=== PATIENT | male | born 1960 | race Caucasian/White ===

== ENCOUNTER 2019-08-17 16:09 | Emergency (ER) | payer MEDICARE, MEDICAID, SELFPAY ==
--- NOTE | 2019-08-17 16:17 | ED_ITS ---
Entered by Jocelynn Shah, acting as scribe for Gonzalo Small MD HPI - Arrhythmia/Palpitations General: Chief Complaint: Arrhythmia/Palpitations Stated Complaint: palpitations, shoulder pain Time Seen by Provider: 08/17/19 16:15 Source: patient, EMS and RN notes reviewed Mode of arrival: EMS Limitations: no limitations History of Present Illness: HPI narrative: 59 yo male presents to ED with complaints of his heart skipping beats. He said his heart has been skipping beats for a couple of days and he began having chest pain this morning (the patient has a history of A-Fib). He said he has had pain in both sides of his neck recently and Dr Way's office was to have set up a test for him but he has not heard from them. He said he is now having pain through to his back. He had aspirin (4-325) prior to ambulance arrival and obtained relief. He has left message with Dr Way's nurse 3-4 days ago has not had a call back. complaint: skipped beats and atrial fibrillation Onset (ago): day(s) (2) Duration: constant Severity: moderate Context: awoke with symptoms Arrhythmia history: atrial fibrillation and other (CAD) Associated symptoms: Reports other (chest pain); Deny nausea or vomiting Treatments prior to arrival: other (aspirin) Review of Systems Const: Denies: fever, chills, body aches or change in appetite Eyes: Denies: blurry vision or eye discomfort ENMT: Denies: throat pain or dental pain Card: Denies: chest pain Resp: Denies: shortness of breath GI: Denies: abdominal pain, nausea, vomiting or diarrhea : Denies: painful urination Musc: Denies: neck pain or back pain Skin/Breast: Denies: rash Neuro: Denies: headache Psych: Denies: depression Álvaro/Lymph: Denies: easy bruising All/Imm: Denies: hives PFS ED PFSH: Medical History (Updated 08/17/19 @ 18:52 by Gonzalo Small MD) Atrial fibrillation CAD (coronary artery disease) Hyperlipidemia Surgical History (Updated 07/14/19 @ 17:[address] MD) S/P CABG x 2 Social History (Updated 07/11/19 @ 13:30 by EFRAIN Bass Smoking and tobacco status: never smoked Physical Exam Const: COMMON NORMALS: no apparent distress, oriented x3 and healthy appearing HENMT: COMMON NORMALS: normocephalic and head/scalp atraumatic HEAD & SCALP: normocephalic and atraumatic Eye: COMMON NORMALS: PERRL and EOMs intact bilaterally PUPIL: Yes PERRL Neck/C-Spine: COMMON NORMALS: full ROM and supple Chest: COMMONS NORMALS: inspection of chest normal and palpation of chest normal Resp: COMMON NORMALS: normal respiratory effort, no retractions, no use of accessory muscles and clear to auscultation bilaterally AUSCULTATION: clear to auscultation bilaterally Cardio: COMMON NORMALS: regular rate, regular rhythm and no murmurs RATE: regular rate RHYTHM: regular rhythm GI: COMMON NORMALS: normal to inspection, nondistended, normoactive bowel sounds, soft to palpation, non-tender and no masses PALPATION: Yes soft Extremity: COMMON NORMALS: normal to inspection and full ROM Neuro: COMMON NORMALS: oriented x3, moves all extremities and no focal motor deficits Psych: COMMON NORMALS: mental status grossly normal, thought process normal and cooperative THOUGHT PROCESS: normal thought process Skin: COMMON NORMALS: no rashes or lesions noted and no wounds GENERAL SKIN EXAM: no rashes or lesions noted Course Vital Signs: Vital signs: Vital Signs Temperature 98.4 F 08/17/19 16:26 Pulse Rate 53 L 08/17/19 18:01 Respiratory Rate 13 08/17/19 18:01 Blood Pressure 148/63 08/17/19 16:26 Pulse Oximetry 100 08/17/19 18:01 MDM - Arrhythmia/Palpitations MDM Narrative: Medical decision making narrative: Patient presents here with palpitations earlier this since resolved. He also had pain that is resolved as well. Initial and repeat troponin here are negative. Patient is well-appearing here and stable for discharge. Lab Data: Labs: Lab Results 08/17/19 08/17/19 08/17/19 Range/Units 16:00 16:00 16:00 WBC 5.4 (4.0-10.0) 10^3/ uL RBC 4.52 (4.1-5.3) 10^6/u L Hgb 13.8 (11.7-16.6) g/dL Hct 42.3 (42.0-52.0) % MCV 93.6 (80-94) fL MCH 30.5 (28.0-34.0) pg MCHC 32.6 (30.0-36.0) g/dL RDW 13.2 (12.1-15.1) % Plt Count 228 (130-400) 10^3/c mm MPV 12.8 H (7.4-10.4) fL Neut % (Auto) 46.7 % Lymph % (Auto) 37.7 % [place] % (Auto) 12.1 % Eos % (Auto) 2.4 % Baso % (Auto) 0.7 % Neut # (Auto) 2.5 (1.8-7.7) 10^3/u L Lymph # (Auto) 2.0 (0.8-4.8) 10^3/u L [place] # (Auto) 0.7 (0.2-0.9) 10^3/u L Eos # (Auto) 0.1 (0.0-0.8) 10^3/u L Baso # (Auto) 0.0 (0.0-0.1) 10^3/u L Nucleated RBC % (a uto) 0 % Nucleated RBCs # 0.0 /100WBC PT 16.30 H (10.5-13.3) SECO NDS INR 1.27 H (0.8-1.2) Sodium 139 (136-145) mmol/L Potassium 4.3 (3.5-5.1) mmol/L Chloride 104 (98-107) mmol/L Carbon Dioxide 22 (22-29) mmol/L Anion Gap 17.3 (5-19) BUN 10 (8-23) mg/dL Creatinine 0.8 (0.7-1.2) mg/dL GFR Calculation 98.6 (90-130) mL/min Glucose 104 (65-115) mg/dL Calcium 9.5 (8.5-10.5) mg/dL Total Bilirubin 0.3 (0.15-1.2) mg/dL AST 37 (0-40) U/L ALT 50 H (0-41) U/L Alkaline Phosphata se 84 (40-130) IU/L Troponin T Baselin e (0-15) ng/mL Troponin T 120 Min igiugig (0-15) ng/mL Delta Troponin T (0-10) ABS# Total Protein 7.3 (6.6-8.7) g/dL Albumin 4.7 (3.5-5.2) g/dL Globulin 2.6 (1.3-4.6) g/dL 08/17/19 08/17/19 Range/Units 16:00 18:03 WBC (4.0-10.0) 10^3/ uL RBC (4.1-5.3) 10^6/u L Hgb (11.7-16.6) g/dL Hct (42.0-52.0) % MCV (80-94) fL MCH (28.0-34.0) pg MCHC (30.0-36.0) g/dL RDW (12.1-15.1) % Plt Count (130-400) 10^3/c mm MPV (7.4-10.4) fL Neut % (Auto) % Lymph % (Auto) % [place] % (Auto) % Eos % (Auto) % Baso % (Auto) % Neut # (Auto) (1.8-7.7) 10^3/u L Lymph # (Auto) (0.8-4.8) 10^3/u L [place] # (Auto) (0.2-0.9) 10^3/u L Eos # (Auto) (0.0-0.8) 10^3/u L Baso # (Auto) (0.0-0.1) 10^3/u L Nucleated RBC % (a uto) % Nucleated RBCs # /100WBC PT (10.5-13.3) SECO NDS INR (0.8-1.2) Sodium (136-145) mmol/L Potassium (3.5-5.1) mmol/L Chloride (98-107) mmol/L Carbon Dioxide (22-29) mmol/L Anion Gap (5-19) BUN (8-23) mg/dL Creatinine (0.7-1.2) mg/dL GFR Calculation (90-130) mL/min Glucose (65-115) mg/dL Calcium (8.5-10.5) mg/dL Total Bilirubin (0.15-1.2) mg/dL AST (0-40) U/L ALT (0-41) U/L Alkaline Phosphata se (40-130) IU/L Troponin T Baselin e 9 (0-15) ng/mL Troponin T 120 Min igiugig 7.34 (0-15) ng/mL Delta Troponin T -1.66 L (0-10) ABS# Total Protein (6.6-8.7) g/dL Albumin (3.5-5.2) g/dL Globulin (1.3-4.6) g/dL Imaging Data^: CT Chest: Radiologist's impression: Ordering Provider/Ordering MD: Gonzalo Small MD Date of Service: 08/17/19 Procedure(s): CT angio chest PE protcl [id number] Accession Number(s): [id number] Report Number: [id number] PROCEDURE INFORMATION: Exam: CT Angiography Chest With Contrast Exam date and time: 08/17/2019 5:50 PM Age: 59 years old Clinical indication: Left-sided chest pain; Prior surgery; Surgery date: 6+ months; Surgery type: Cabg; Patient HX: C/O transient L sided cp TECHNIQUE: Imaging protocol: Computed tomographic angiography of the chest with intravenous contrast. 3D rendering: MIP and/or 3D reconstructed images were created by the technologist. Total DLP: 601.34 mGy-cm Radiation optimization: All CT scans at this facility use at least one of these dose optimization techniques: automated exposure control; mA and/or kV adjustment per patient size (includes targeted exams where dose is matched to clinical indication); or iterative reconstruction. Contrast material: OMNI 350; Contrast volume: 95 ml; Contrast route: 18G; COMPARISON: CR Chest 2 views* [id number] 12/29/2018 2:00 PM FINDINGS: Pulmonary arteries: There is no pulmonary embolus. Aorta: Unremarkable. No aortic aneurysm. No aortic dissection. Lungs: Mild bibasilar ground-glass opacity is present, consistent with atelectasis, edema, or pneumonia. There are moderate emphysematous changes. 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 Pleural space: Unremarkable. No pneumothorax. No pleural effusion. Heart: The heart is enlarged. Sternotomy wires and mediastinal surgical clips are present, consistent with previous coronary arterial bypass grafting. Mediastinum: A small hiatal hernia is present. Kidneys and ureters: There is a 1.9 cm upper pole simple cyst in the right kidney. Lymph nodes: There is no axillary adenopathy. There is a 1.4 cm short axis right paratracheal lymph node image 166. There is a subcarinal lymph node image 202 measuring 6 2 cm in short axis. There is a 1.6 cm short axis right hilar lymph node. Subcentimeter left hilar lymph nodes are noted. Bones/joints: Unremarkable. No acute fracture. Soft tissues: Unremarkable. Other findings: There are calcified granulomas. CT/CT angio chest PE protcl [id number] IMPRESSION: 1. There is no pulmonary embolus. 2. There is a 1.9 cm upper pole simple cyst in the right kidney. 3. Mild bibasilar ground-glass opacity is present, consistent with atelectasis, edema, or pneumonia. Emphysematous changes are noted. EKG Data^: EKG 1: Attestation: I personally reviewed and interpreted this EKG as follows: EKG interpretation date: 08/17/19 EKG interpretation time: 16:53 Interpretation: sinus remberto hr [address] or t wave abnormalities qrs 111 qtc 398 Other EKG comments: Chest CTA 08/17/19 16:20 IMPRESSION: 1. There is no pulmonary embolus. 2. There is a 1.9 cm upper pole simple cyst in the right kidney. 3. Mild bibasilar ground-glass opacity is present, consistent with atelectasis, edema, or pneumonia. Emphysematous changes are noted. Radiation Dose CTDIVOL = (mGy): DLP = 601.34 (mGy-cm) EKG 2: Attestation: I personally reviewed and interpreted this EKG as follows: EKG interpretation date: 08/17/19 EKG interpretation time: 18:56 Interpretation: sinus remberto hr [address] or twave abnormalities qrs 108 qtc 407 Other EKG comments: Chest CTA 08/17/19 16:20 IMPRESSION: 1. There is no pulmonary embolus. 2. There is a 1.9 cm upper pole simple cyst in the right kidney. 3. Mild bibasilar ground-glass opacity is present, consistent with atelectasis, edema, or pneumonia. Emphysematous changes are noted. Radiation Dose CTDIVOL = (mGy): DLP = 601.34 (mGy-cm) Discharge Plan Discharge Patient Disposition: Home, Self-Care Clinical Impression: Palpitations, Chest pain Condition: Stable Prescriptions: No Action isosorbide mononitrate 30 mg tablet extended release 24 hr 15 mg PO BID RF: 0 nitroglycerin [Nitrostat] 0.4 mg tablet, sublingual 0.4 mg SUBLINGUAL DIRECTED RF: 0 albuterol sulfate 90 mcg/actuation HFA aerosol inhaler 2 puff INHALATION Q6H PRN (Reason: Shortness Of Breath) RF: 0 Pradaxa 150 mg capsule 150 mg PO BID RF: 0 esomeprazole magnesium 40 mg capsule,delayed release(DR/EC) 40 mg PO DAILY RF: 0 aspirin [Adult Low Dose Aspirin] 81 mg tablet,delayed release (DR/EC) 81 mg PO DAILY RF: 0 cyclobenzaprine 10 mg tablet 10 mg PO DAILY PRN (Reason: Muscle Pain) RF: 0 red yeast rice 600 mg capsule 1,200 mg PO DAILY RF: 0 famotidine 20 mg tablet 20 mg PO DAILY RF: 0 latanoprost 0.005 % drops 1 drop ophthalmic (eye) BEDTIME RF: 0 Azopt 1 % drops,suspension 1 drop ophthalmic (eye) TID RF: 0 lisinopril 10 mg tablet 10 mg PO DAILY RF: 0 atenolol 25 mg tablet 12.5 mg PO DAILY 30 Days Qty: 15 RF: 6 trazodone 50 mg Tablet 50 mg PO BEDTIME RF: 0 metoprolol tartrate 25 mg tablet 12.5 mg PO DAILY RF: 0 Discharge Orders: Discharge Order (Routine); Ordered 08/17/19 Ordered By: Gonzalo Small Referrals: Waldo Mckay [Primary Care Provider] - 4-7 days Discharge Diet: Advance as tolerated Discharge Activity: Resume usual activity Patient Instructions: Chest Pain (ED) Coding Level of Care Code ED [employer] Developer for g Fwd Exam Comprehensive The documentation recorded by the Alyssa friend Valerie R, accurately reflects the service I personally performed and the decisions made by Staci sosa Korby, MD Aug 17, 2019 16:09
--- NOTE | 2019-08-17 16:20 | CTR_ITS ---
PROCEDURE INFORMATION: Exam: CT Angiography Chest With Contrast Exam date and time: 08/17/2019 5:50 PM Age: 59 years old Clinical indication: Left-sided chest pain; Prior surgery; Surgery date: 6+ months; Surgery type: Cabg; Patient HX: C/O transient L sided cp TECHNIQUE: Imaging protocol: Computed tomographic angiography of the chest with intravenous contrast. 3D rendering: MIP and/or 3D reconstructed images were created by the technologist. Total DLP: 601.34 mGy-cm Radiation optimization: All CT scans at this facility use at least one of these dose optimization techniques: automated exposure control; mA and/or kV adjustment per patient size (includes targeted exams where dose is matched to clinical indication); or iterative reconstruction. Contrast material: OMNI 350; Contrast volume: 95 ml; Contrast route: 18G; COMPARISON: CR Chest 2 views* [id number] 12/29/2018 2:00 PM FINDINGS: Pulmonary arteries: There is no pulmonary embolus. Aorta: Unremarkable. No aortic aneurysm. No aortic dissection. Lungs: Mild bibasilar ground-glass opacity is present, consistent with atelectasis, edema, or pneumonia. There are moderate emphysematous changes. 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 Pleural space: Unremarkable. No pneumothorax. No pleural effusion. Heart: The heart is enlarged. Sternotomy wires and mediastinal surgical clips are present, consistent with previous coronary arterial bypass grafting. Mediastinum: A small hiatal hernia is present. Kidneys and ureters: There is a 1.9 cm upper pole simple cyst in the right kidney. Lymph nodes: There is no axillary adenopathy. There is a 1.4 cm short axis right paratracheal lymph node image 166. There is a subcarinal lymph node image 202 measuring 6 2 cm in short axis. There is a 1.6 cm short axis right hilar lymph node. Subcentimeter left hilar lymph nodes are noted. Bones/joints: Unremarkable. No acute fracture. Soft tissues: Unremarkable. Other findings: There are calcified granulomas. CT/CT angio chest PE protcl [id number] IMPRESSION: 1. There is no pulmonary embolus. 2. There is a 1.9 cm upper pole simple cyst in the right kidney. 3. Mild bibasilar ground-glass opacity is present, consistent with atelectasis, edema, or pneumonia. Emphysematous changes are noted. Radiation Dose CTDIVOL = (mGy): DLP = 601.34 (mGy-cm)
--- NOTE | 2019-08-17 16:21 | ECG_ITS ---
Measurements Intervals [place] Rate: 48 P: 23 NC: 178 QRS: -3 QRSD: 111 T: 31 QT: 430 QTc: 388 SINUS BRADYCARDIA MODERATE INTRAVENTRICULAR CONDUCTION DELAY [110+ ms QRS DURATION] Compared to ECG 12/29/2018 16:26:04 Intraventricular conduction delay now present Electronically Signed On 08-17-2019 20:29:33 INTERIOR DECORATOR by Tad Bustos M.D. [id number]
[2019-08-17 16:26] VITALS: BP 148/63; PULSE 51; RESP 13; TEMP 36.9; O2SAT 98; BMI 27.6
[2019-08-17 16:41] VITALS: O2SAT 98
[2019-08-17 16:50] LABS: Basophils % 0.7 %; Eosinophils # 0.1 10^3/uL (0.0-0.8); Eosinophils % 2.4 %; Hematocrit 42.3 % (42.0-52.0); Hemoglobin 13.8 g/dL (11.7-16.6); Lymphocytes % 37.7 %; Mean Corpuscular HGB Conc 32.6 g/dL (30.0-36.0); Mean Corpuscular Hemoglobin 30.5 pg (28.0-34.0); Mean Corpuscular Volume 93.6 fL (80-94); Mean Platelet Volume 12.8 fL (7.4-10.4); Monocytes # 0.7 10^3/uL (0.2-0.9); Monocytes % 12.1 %; Neutrophils # 2.5 10^3/uL (1.8-7.7); Neutrophils % 46.7 %; Nucleated Red Blood Cells % 0 %; Platelet Count 228 10^3/cmm (130-400); Red Blood Count 4.52 10^6/uL (4.1-5.3); Red Cell Distribution Width 13.2 % (12.1-15.1); White Blood Count 5.4 10^3/uL (4.0-10.0)
[2019-08-17 17:00] LABS: INR 1.27 (0.8-1.2)
[2019-08-17 17:06] LABS: Alanine Aminotransferase 50 U/L (0-41); Albumin Level 4.7 g/dL (3.5-5.2); Alkaline Phosphatase 84 IU/L (40-130); Anion Gap 17.3 (5-19); Aspartate Amino Transferase 37 U/L (0-40); Blood Urea Nitrogen 10 mg/dL (8-23); Calcium 9.5 mg/dL (8.5-10.5); Carbon Dioxide 22 mmol/L (22-29); Chloride 104 mmol/L (98-107); Creatinine Clr Calc Pharmacy 116.0739; Globulin 2.6 g/dL (1.3-4.6); Glomerular Filtration Rate 98.6 mL/min (90-130); Glucose 104 mg/dL (65-115); Potassium 4.3 mmol/L (3.5-5.1); Sodium 139 mmol/L (136-145); Total Bilirubin 0.3 mg/dL (0.15-1.2); Total Protein 7.3 g/dL (6.6-8.7)
[2019-08-17 17:08] LABS: Troponin(5th) Baseline 9 ng/mL (0-15)
[2019-08-17] MEDS: iohexol 350 mg/mL 100 mL Btl IV (17:56)
[2019-08-17 18:01] VITALS: PULSE 53; RESP 13; O2SAT 100
--- NOTE | 2019-08-17 18:05 | PC.NURSE ---
pt back from CT by stretcher with tech
[2019-08-17 18:40] LABS: Troponin 5 2HR 7.34 ng/mL (0-15)
[2019-08-17 18:47] LABS: Troponin 5 2HR Delta -1.66 ABS# (0-10)
[2019-08-17 18:58] VITALS: BP 138/68; PULSE 56; RESP 22; O2SAT 99
--- NOTE | 2019-08-17 22:21 | ECG_ITS ---
Measurements Intervals [place] Rate: 49 P: 52 NH: 186 QRS: -1 QRSD: 108 T: 33 QT: 436 QTc: 396 SINUS BRADYCARDIA Compared to ECG 12/29/2018 16:26:04 No significant changes Electronically Signed On 08-17-2019 20:36:11 BAKERY WORKER CONVEYOR LINE by Tad Bustos M.D. [email or web address]
== END 2019-08-17 18:58 | disposition home or self-care (01) ==
PROVIDERS: Emergency Provider Emergency Medicine; Family Provider Physician Assistant Medical; PCP Physician Assistant Medical
DX: R00.2 Palpitations (principal); R07.9 Chest pain, unspecified; I48.91 Unspecified atrial fibrillation; I25.10 Atherosclerotic heart disease of native coronary artery without angina pectoris; E78.5 Hyperlipidemia, unspecified; Z79.01 Long term (current) use of anticoagulants; Z79.82 Long term (current) use of aspirin; Z95.1 Presence of aortocoronary bypass graft
CPT/HCPCS: 71275; 80053; 84484; 85025; 85610; 93005; 99283; 99284; Q9967

== ENCOUNTER 2020-02-25 19:16 | Observation (INO) | payer MEDICARE, MEDICAID, SELFPAY ==
--- NOTE | 2020-02-25 19:18 | XRR_ITS ---
PROCEDURE INFORMATION: Exam: XR Chest, 1 View Exam date and time: 02/25/2020 7:52 PM Age: 60 years old Clinical indication: Chest pain; Other: Central; Prior surgery; Surgery type: Cabg TECHNIQUE: Imaging protocol: XR of the chest Views: 1 view. COMPARISON: CT angio chest PE protcl [id number] 08/17/2019 6:12 PM FINDINGS: Lungs: No pneumonia or pulmonary edema. Pleural space: No pleural effusion or pneumothorax. Heart/Mediastinum: The cardiac silhouette is enlarged. Prior CABG. Prior left atrial appendage clipping. The mediastinal contours are normal. Bones/joints: Prior median sternotomy. XR/XR chest 1V portable [id number] IMPRESSION: No acute abnormality.
--- NOTE | 2020-02-25 19:18 | ECG_ITS ---
[facility] Test Date: 2020-02-25 Pat Name: Marshall Fountain Department: Room: Gender: Male Clinical Data Coordinator: : 1960 Requested By: Gonzalo Small Order Number: [id number] Fay MD: Irasema Delatorre M.D. Measurements Intervals [place] Rate: 52 P: 50 DC: 174 QRS: -6 QRSD: 105 T: 31 QT: 415 QTc: 387 Interpretive Statements SINUS BRADYCARDIA Compared to ECG 08/17/2019 18:56:09 No significant changes Electronically Signed On 02-25-2020 22:37:14 CDT by Irasema Delatorre M.D. [id number]
[2020-02-25 19:31] LABS: Basophils % 0.5 %; Eosinophils # 0.1 10^3/uL (0.0-0.8); Eosinophils % 1.6 %; Hematocrit 44.9 % (42.0-52.0); Hemoglobin 13.8 g/dL (11.7-16.6); Lymphocytes # 2.8 10^3/uL (0.8-4.8); Lymphocytes % 38.3 %; Mean Corpuscular HGB Conc 30.7 g/dL (30.0-36.0); Mean Corpuscular Hemoglobin 30.3 pg (28.0-34.0); Mean Corpuscular Volume 98.5 fL (80-94); Mean Platelet Volume 11.7 fL (7.4-10.4); Monocytes % 12.9 %; Neutrophils # 3.43 10^3/uL (1.8-7.7); Neutrophils % 46.4 %; Nucleated Red Blood Cells % 0 %; Platelet Count 255 10^3/cmm (130-400); Red Blood Count 4.56 10^6/uL (4.1-5.3); Red Cell Distribution Width 12.8 % (12.1-15.1); White Blood Count 7.4 10^3/uL (4.0-10.0)
[2020-02-25 19:39] VITALS: BP 161/86; PULSE 52; RESP 16; TEMP 36.4; O2SAT 97; BMI 28.7
[2020-02-25 19:46] LABS: Albumin Level 4.7 g/dL (3.5-5.2); Alkaline Phosphatase 79 IU/L (40-130); Anion Gap 14.5 (5-19); Aspartate Amino Transferase 44 U/L (0-40); Blood Urea Nitrogen 12 mg/dL (8-23); Carbon Dioxide 25 mmol/L (22-29); Chloride 102 mmol/L (98-107); Globulin 3.1 g/dL (1.3-4.6); Glomerular Filtration Rate 98.3 mL/min (90-130); Glucose 102 mg/dL (65-115); Osmolality Calculated 280 mOsm/kg (285-295); Potassium 4.5 mmol/L (3.5-5.1); Sodium 137 mmol/L (136-145); Total Bilirubin 0.2 mg/dL (0.15-1.2); Total Protein 7.8 g/dL (6.6-8.7)
[2020-02-25 19:48] LABS: Troponin(5th) Baseline 10 ng/L (0-15)
[2020-02-25 19:59] LABS: Alanine Aminotransferase 67 U/L (0-41)
--- NOTE | 2020-02-25 20:01 | ED_ITS ---
HPI - Chest Pain General: Chief Complaint: Chest Pain Stated Complaint: chest pain Time Seen by Provider: 02/25/20 19:53 Source: patient Mode of arrival: ambulatory Limitations: no limitations History of Present Illness: HPI narrative: Mr. Fountain is a nice 60-year-old male who comes in complaining of chest and back pain. He states he is most bothered by the sharp pains that he has in the lower center of his chest. He states he is had 10 episodes of these they last just 1 second and come on suddenly and are sharp. They last just 1 second without radiation or any other associated symptoms. These chest pains are sporadic and happen during his sleep as well as when he is up doing things. He also complains of pain between both shoulders. He states this is been constant since last night. He states it is more of a tightness or pressure. He states this pain is usually caused by his shoulders so he did not pay much attention to it. He denies any nausea vomiting, diapho resis, exacerbating or alleviating factors although he does state sometimes he will feel some discomfort in his left arm. Patient has history of coronary artery disease with a bypass in the past. Currently at this time the patient has no discomfort except for the pain in his back. Associated symptoms: Reports dyspnea; Deny abdominal pain, diaphoresis, fever(s), nausea, palpitations, syncope or vomiting Review of Systems Const: Denies: fever(s), chills, body aches, fatigue, malaise or diaphoresis Eyes: Denies: change in vision, blurry vision, photophobia, eye discomfort, eye discharge or eye redness ENMT: Denies: throat pain, odynophagia, hoarseness, swelling of lips/tongue, ear or mastoid pain, ear discharge, change in hearing or nasal discharge Card: Reports: chest pain; Denies: palpitations, irregular heart rhythm, edema, lightheadedness, syncope, pre-syncope, dyspnea on exertion or orthopnea Resp: Reports: dyspnea; Denies: productive cough, non-productive cough, wheezing, hemoptysis or chest congestion GI: Denies: abdominal pain, nausea, vomiting, hematemesis, coffee ground emesis, heartburn, diarrhea, constipation, GI cramping, hematochezia or melena : Denies: flank pain, dysuria, urinary frequency, urinary urgency or hematuria Musc: Denies: neck pain, back pain, extremity pain, extremity swelling, joint pain, joint swelling, joint redness, joint warmth or joint stiffness Skin/Breast: Denies: rash, pruritus, erythema or skin tenderness Neuro: Denies: headache(s), numbness in extremities, weakness in extremities, sensory changes, lack of coordination, difficulty walking, dizziness, vertigo, confusion, Slurred speech present or seizure-like activity Álvaro/Lymph: Denies: easy bruising, easy bleeding, petechiae, purpura or enlarged lymph nodes All/Imm: Denies: urticaria, throat swelling, tongue swelling, facial swelling or acute wheezing PFSH ED PFSH: Medical History Atrial fibrillation CAD (coronary artery disease) Essential hypertension Surgical History S/P CABG x 2 Family History Mother Hypertension Stroke Diabetes Myocardial infarction Chronic kidney disease (CKD) Father Hypertension Sister Hypertension Stroke Social History Smoking and tobacco status: never smoked Physical Exam Const: COMMON NORMALS: no acute distress, patient oriented x3, no limitations, healthy appearing and well nourished GENERAL APPEARANCE: cooperative, well kempt and well developed HENMT: COMMON NORMALS: normocephalic, atraumatic, external ears normal, EAC's normal and Normal external nose present HEAD & SCALP: normal to inspection, normocephalic and atraumatic FACE & SINUS: normal facial exam and face symmetric NOSE: Normal external nose present and Normal nares present EXTERNAL EAR: Yes external ears normal EXTERNAL AUDITORY CANAL: EAC's normal MOUTH: Normal oral and palatal mucosa present, lip normal and tongue normal Eye: COMMON NORMALS: Equal, round and reactive pupils present and conjunctivae normal GENERAL EYE: appearance normal, both eyes and all related structures ALIGNMENT: Yes alignment normal PERIORBITAL: periorbital findings normal EYELID: eyelids normal CONJUNCTIVA: Yes conjunctivae normal SCLERA: sclerae normal PUPIL: Yes Equal, round and reactive pupils present Neck/C-Spine: COMMON NORMALS: full ROM, no lymphadenopathy, supple, no meningeal signs and no JVD GENERAL: Yes normal visual inspection and Yes trachea midline Chest: COMMONS NORMALS: normal inspection of the chest and normal palpation of entire chest wall Resp: COMMON NORMALS: normal respiratory effort, No retractions, No use of accessory muscles and clear to auscultation bilaterally EFFORT & INSPECTION: Yes able to speak in complete sentences and Yes symmetric chest movement AUSCULTATION: clear to auscultation bilaterally, no crackles, no rales, no rhonchi and no wheezes Cardio: COMMON NORMALS: no JVD, regular rate, regular rhythm, S1 normal heart sound present and S2 normal heart sound present RATE: regular rate RHYTHM: regular rhythm HEART SOUNDS: S1 normal heart sound present, S2 normal heart sound present, no click, no gallops, no murmurs, no rubs and abnormal split S2 GI: COMMON NORMALS: Soft to palpation and No hepatosplenomegaly present PALPATION: Yes Soft to palpation, No Tenderness to palpation present (GI), No Guarding due to palpation present (GI), No Rigid due to palpation, Yes No hepatosplenomegaly present, No Hernia present, No Palpable mass present and No Pulsatile mass present : COMMON NORMALS: Yes no CVA tenderness BLADDER/KIDNEY EXAM: Yes no CVA tenderness Back/Pelvis: COMMON NORMALS: no CVA tenderness, thoracic and lumbar spine normal to inspection, no thoracic nor lumbar tenderness and thoraco-lumbar ROM normal Extremity: COMMON NORMALS: normal to inspection, full ROM, capillary refill normal, no joint enlargement, no clubbing, cyanosis or edema and no calf tenderness Neuro: COMMON NORMALS: patient oriented x3, CN's II-XII intact bilaterally, moves all extremities, no focal motor deficits and no sensory deficits noted MENINGEAL SIGNS: Yes no meningeal signs SPEECH: speech normal Psych: COMMON NORMALS: mental status grossly normal, Normal thought process present, cooperative, normal affect, speech normal and activity/motor behavior normal APPEARANCE: Yes well kempt SPEECH: Yes normal speech THOUGHT P ROCESS: Normal thought process present Skin: COMMON NORMALS: no rashes or lesions noted, turgor normal, no jaundice, no petechiae and no mottling GENERAL SKIN EXAM: no rashes or lesions noted and turgor normal Course Vital Signs: Vital signs: Vital Signs Temperature 97.6 F 02/25/20 19:39 Pulse Rate 52 L 02/25/20 19:39 Respiratory Rate 16 02/25/20 19:39 Blood Pressure 161/86 02/25/20 19:39 Pulse Oximetry 97 02/25/20 19:39 MDM - Chest Pain MDM Narrative: Medical decision making narrative: Marshall is a nice 60-year-old male who comes in with chest pain and back pain. His chest pain is described as sharp lasting only a second with 10 episodes throughout the day. It is not reproducible to palpation. Of concern is his pain across his back that he describes as a pressure. He has had associated radiation down his left arm as well as shortness of breath but no diaphoresis. Patient's back pain is been intermittent. It was relieved with nitroglycerin here. At this time I believe he should have a rule out with possible stress test as patient has known coronary artery disease. His back discomfort was resolved with nitroglycerin here in the ER. Patient agrees this treatment plan. I reviewed the case with Dr. Mercado who has been gracious enough to go ahead and admit for observation with the plan for rule out and cardiac stress testing in the morning. Lab Data: Attestation: I reviewed the patient's lab results. Labs: Lab Results 02/25/20 02/25/20 02/25/20 Range/Units 19:24 19:24 19:24 WBC 7.4 (4.0-10.0) 10^3/ uL RBC 4.56 (4.1-5.3) 10^6/u L Hgb 13.8 (11.7-16.6) g/dL Hct 44.9 (42.0-52.0) % MCV 98.5 H (80-94) fL MCH 30.3 (28.0-34.0) pg MCHC 30.7 (30.0-36.0) g/dL RDW 12.8 (12.1-15.1) % Plt Count 255 (130-400) 10^3/c mm MPV 11.7 H (7.4-10.4) fL Neut % (Auto) 46.4 % Lymph % (Auto) 38.3 % [place] % (Auto) 12.9 % Eos % (Auto) 1.6 % Baso % (Auto) 0.5 % Neut # (Auto) 3.43 (1.8-7.7) 10^3/u L Lymph # (Auto) 2.8 (0.8-4.8) 10^3/u L [place] # (Auto) 1.0 H (0.2-0.9) 10^3/u L Eos # (Auto) 0.1 (0.0-0.8) 10^3/u L Baso # (Auto) 0.0 (0.0-0.1) 10^3/u L Nucleated RBC % (a uto) 0 % Nucleated RBCs # 0.0 /100WBC D-Dimer (0-0.59) ug/mIFE U Sodium 137 (136-145) mmol/L Potassium 4.5 (3.5-5.1) mmol/L Chloride 102 (98-107) mmol/L Carbon Dioxide 25 (22-29) mmol/L Anion Gap 14.5 (5-19) BUN 12 (8-23) mg/dL Creatinine 0.8 (0.7-1.2) mg/dL GFR Calculation 98.3 (90-130) mL/min Glucose 102 (65-115) mg/dL Calculated Osmolal ity 280 L (285-295) mOsm/k g Calcium 9.0 (8.5-10.5) mg/dL Total Bilirubin 0.2 (0.15-1.2) mg/dL AST 44 H (0-40) U/L ALT 67 H (0-41) U/L Alkaline Phosphata se 79 (40-130) IU/L Troponin T Baselin e 10 (0-15) ng/L Total Protein 7.8 (6.6-8.7) g/dL Albumin 4.7 (3.5-5.2) g/dL Globulin 3.1 (1.3-4.6) g/dL 02/25/20 Range/Units 19:24 WBC (4.0-10.0) 10^3/ uL RBC (4.1-5.3) 10^6/u L Hgb (11.7-16.6) g/dL Hct (42.0-52.0) % MCV (80-94) fL MCH (28.0-34.0) pg MCHC (30.0-36.0) g/dL RDW (12.1-15.1) % Plt Count (130-400) 10^3/c mm MPV (7.4-10.4) fL Neut % (Auto) % Lymph % (Auto) % [place] % (Auto) % Eos % (Auto) % Baso % (Auto) % Neut # (Auto) (1.8-7.7) 10^3/u L Lymph # (Auto) (0.8-4.8) 10^3/u L [place] # (Auto) (0.2-0.9) 10^3/u L Eos # (Auto) (0.0-0.8) 10^3/u L Baso # (Auto) (0.0-0.1) 10^3/u L Nucleated RBC % (a uto) % Nucleated RBCs # /100WBC D-Dimer <= 0.27 (0-0.59) ug/mIFE U Sodium (136-145) mmol/L Potassium (3.5-5.1) mmol/L Chloride (98-107) mmol/L Carbon Dioxide (22-29) mmol/L Anion Gap (5-19) BUN (8-23) mg/dL Creatinine (0.7-1.2) mg/dL GFR Calculation (90-130) mL/min Glucose (65-115) mg/dL Calculated Osmolal ity (285-295) mOsm/k g Calcium (8.5-10.5) mg/dL Total Bilirubin (0.15-1.2) mg/dL AST (0-40) U/L ALT (0-41) U/L Alkaline Phosphata se (40-130) IU/L Troponin T Baselin e (0-15) ng/L Total Protein (6.6-8.7) g/dL Albumin (3.5-5.2) g/dL Globulin (1.3-4.6) g/dL Imaging Data^: CXR: Attestation: I personally reviewed and interpreted this imaging study as follows: My impression: Cardiomegaly without any acute cardiopulmonary findings. EKG Data^: EKG 1: Attestation: I personally reviewed and interpreted this EKG as follows: EKG interpretation date: 02/25/20 EKG interpretation time: 19:43 Interpretation: Sinus bradycardia at 52 beats a minute, no acute ST-T wave changes. EKG 2: Attestation: I personally reviewed and interpreted this EKG as follows: EKG interpretation date: 02/25/20 EKG interpretation time: 21:43 Interpretation: Normal sinus rhythm at 50 beats a minute, no acute ST-T wave changes. Discharge Plan Discharge Patient Disposition: Placed in Observation Clinical Impression: Chest pain, CAD (coronary artery disease) Condition: Stable Prescriptions: No Action Pradaxa 150 mg capsule 150 mg PO BID RF: 0 esomeprazole magnesium 40 mg capsule,delayed release(DR/EC) 40 mg PO DAILY RF: 0 aspirin [Adult Low Dose Aspirin] 81 mg tablet,delayed release (DR/EC) 81 mg PO DAILY RF: 0 cyclobenzaprine 10 mg tablet 10 mg PO DAILY PRN (Reason: Muscle Pain) RF: 0 red yeast rice 600 mg capsule 1,200 mg PO DAILY RF: 0 famotidine 20 mg tablet 20 mg PO DAILY RF: 0 latanoprost 0.005 % drops 1 drop ophthalmic (eye) BEDTIME RF: 0 Azopt 1 % drops,suspension 1 drop ophthalmic (eye) TID RF: 0 lisinopril 10 mg tablet 10 mg PO DAILY RF: 0 atenolol 25 mg tablet 12.5 mg PO DAILY 30 Days Qty: 15 RF: 6 isosorbide mononitrate 30 mg tablet extended release 24 hr 15 mg PO BID 90 Days Qty: 90 RF: 3 nitroglycerin [Nitrostat] 0.4 mg tablet, sublingual 0.4 mg SUBLINGUAL Q5M PRN (Reason: chest pain) Qty: 50 RF: 3 albuterol sulfate 90 mcg/actuation HFA aerosol inhaler 2 puff INHALATION Q6H PRN (Reason: Shortness Of Breath) RF: 0 Referrals: Waldo Mckay [Primary Care Provider] - Coding Level of Care Code ED Electron Beam Photo Mask Technician for Chg Fwd Exam Comprehensive
[2020-02-25 20:13] LABS: D Dimer <= 0.27 ug/mIFEU (0-0.59)
[2020-02-25] MEDS: aspirin 325 mg Tablet PO (20:59)
[2020-02-25] MEDS: nitroglycerin 0.4 mg sublingual Tablet SUBLINGUAL (20:59)
--- NOTE | 2020-02-25 21:18 | ECG_ITS ---
[facility] Test Date: 2020-02-25 Pat Name: Marshall Fountain Department: Room: Gender: Male Implementation Manager: : 1960 Requested By: Gonzalo Small Order Number: [id number] Fay MD: Irasema Delatorre M.D. Measurements Intervals [place] Rate: 50 P: 50 [place]: 182 QRS: -2 QRSD: 106 T: 34 QT: 441 QTc: 403 Interpretive Statements SINUS BRADYCARDIA Compared to ECG 02/25/2020 19:43:57 No significant changes Electronically Signed On 02-25-2020 22:47:05 CDT by Irasema Delatorre M.D. [id number]
[2020-02-25 21:49] LABS: Troponin 5 2HR 7.06 ng/L (0-15)
[2020-02-25 21:50] LABS: Troponin 5 2HR Delta -2.94 ABS# (0-10)
--- NOTE | 2020-02-25 22:22 | P.HP_ITS ---
Providers/Chief Complaint Admitting Physician: Mami Mercado MD Primary Care Provider: Waldo Mckay Chief Complaint: chest pain History of Present Illness Marshall Fountain is a 60 year old male with PMHx noted below including CAD s/p CABG x 2, presents with complaints of several episodes of chest pain today. He estimates that he has had about 10 episodes of sharp, brief episodes of chest discomfort radiating to bilateral shoulder blades. He did try to take some nitroglycerin but chest pain resolved quickly and he is unsure if this was a effect of the medication or if it was spontaneous resolution of the pain. He follows up with Dr. 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 He states that prior to the onset of his symptoms he was otherwise in his usual state of health. He has had some episodes of dizziness when ambulating or exerting but does not seem to be too concerned about this. He denies having had any falls, increased shortness of breath, productive cough, fever/chills, abdominal pain, nausea/vomiting, changes in his urination or bowel habits. He is currently chest pain-free having received additional nitroglycerin. Baseline troponin is unremarkable, no significant delta after 2 hours, no noted ischemic changes on EKG. He is slightly hypertensive but vital signs are otherwise stable. D-dimer is negative, CBC is unremarkable, normal electrolytes and renal function noted. Chest x-ray is pending official report. Mild transaminitis noted. Due to his history of CAD with prior bypass surgery and characteristics of chest pain he will require further evaluation including stress testing in the a.m. which he is agreeable to. Review of Systems Const: Denies: fever(s) or chills Eyes: Denies: change in vision ENMT: Reports: dry mouth Card: Reports: chest pain; Denies: swelling of feet/ankles, lightheadedness, dyspnea on exertion or orthopnea Resp: Reports: dyspnea (chronic ) and non-productive cough (chronic) GI: Denies: abdominal pain, nausea, vomiting, hematemesis or hematochezia : Denies: dysuria or hematuria Musc: Denies: back pain Skin/Breast: Denies: rash Neuro: Denies: numbness in extremities, weakness in extremities, difficulty walking or frequent falls Psych: Denies: anxiety Medications/Allergies Home Medications Medication Instructions Recorded Confirmed Last Taken Type aspirin 81 mg tablet,delayed 81 mg PO DAILY 07/11/19 02/25/20 02/25/20 History release brinzolamide 1 % eye 1 drop OPHTHALMIC (EYE) TID 07/11/19 02/25/20 02/25/20 History drops,suspension cyclobenzaprine 10 mg tablet 10 mg PO DAILY PRN tab 07/11/19 02/25/20 02/22/20 History dabigatran etexilate 150 mg capsule 150 mg PO BID 07/11/19 02/25/20 02/25/20 History esomeprazole magnesium 40 mg 40 mg PO DAILY 07/11/19 02/25/20 02/25/20 History capsule,delayed release famotidine 20 mg tablet 20 mg PO DAILY 07/11/19 02/25/20 02/25/20 History latanoprost 0.005 % eye drops 1 drop OPHTHALMIC (EYE) BEDTIME 07/11/19 02/25/20 02/24/20 History lisinopril 10 mg tablet 10 mg PO DAILY 07/11/19 02/25/20 02/25/20 History red yeast rice 600 mg capsule 1,200 mg PO DAILY 07/11/19 02/25/20 02/25/20 History atenolol 25 mg tablet 12.5 mg PO DAILY 30 Days #15 tab 08/07/19 02/25/20 02/25/20 Rx isosorbide mononitrate 30 mg 15 mg PO BID 90 Days #90 tab 12/05/19 02/25/20 02/25/20 Rx tablet,extended release 24 hr nitroglycerin 0.4 mg sublingual 0.4 mg SUBLINGUAL Q5M PRN #50 tab 02/10/20 02/25/20 02/25/20 Rx tablet albuterol sulfate 2 puff INHALATION Q6H PRN 02/25/20 02/25/20 02/25/20 History Allergies Allergy/AdvReac Type Severity Reaction Status Date / Time atorvastatin [From Lipitor] Allergy Unknown Unknown Verified 07/11/19 13:23 celecoxib [From Celebrex] Allergy Unknown Unknown Verified 07/11/19 13:23 hydrocodone Allergy Unknown Unknown Verified 07/11/19 13:23 oxaprozin Allergy Unknown Unknown Verified 07/11/19 13:23 pseudoephedrine Allergy Unknown Unknown Verified 07/11/19 13:23 [From Sudafed] rosuvastatin [From Crestor] Allergy Unknown Unknown Verified 07/11/19 13:23 sertraline [From Zoloft] Allergy Unknown Unknown Verified 07/11/19 13:23 sotalol Allergy Unknown Unknown Verified 07/11/19 13:23 Ryomfca-Jxe-Wvy Reductase Allergy Unknown Unknown Verified 07/11/19 13:23 Inhibitor PFSH Acute PFSH: Medical History (Updated 02/25/20 @ 23:39 by Mami Mercado MD) Atrial fibrillation CAD (coronary artery disease) Essential hypertension Surgical History (Updated 02/25/20 @ 23:34 by Mami Mercado MD) S/P CABG x 2 S/P lens implant S/P nasal surgery Family History Mother Hypertension Stroke Diabetes Myocardial infarction Chronic kidney disease (CKD) Father Hypertension Sister Hypertension Stroke Social History (Updated 02/25/20 @ 23:34 by Mami Mercado MD) Smoking and tobacco status: former smoker Quit status (tobacco): has quit using tobacco Former quit date comment: quit about 13 yrs ago Alcohol intake: current Alcohol intake frequency: holidays/special occasions only Substance/Drug Use: never Lives independently: Yes Marital status: / Marital status details: x 6 yrs Vitals/I&O/Wt Last Vital Signs Temp 97.6 F 02/25/20 19:39 Pulse 52 L 02/25/20 19:39 Resp 16 02/25/20 19:39 BP 161/86 02/25/20 19:39 Pulse Ox 97 02/25/20 19:39 Weight last 48 hrs Weight 96.162 kg Physical Exam Const: COMMON NORMALS: no acute distress, patient oriented x3 and alert GENERAL APPEARANCE: cooperative and comfortable; not ill appearing ORIENTATION/CONSCIOUSNESS: Yes awake HENMT: COMMON NORMALS: normocephalic, atraumatic, hearing grossly normal bilaterally and moist oral mucous membranes HEAD & SCALP: normocephalic and atraumatic Eye: COMMON NORMALS: Equal, round and reactive pupils present, EOMs intact bilaterally and conjunctivae normal CONJUNCTIVA: Yes conjunctivae normal PUPIL: Yes Equal, round and reactive pupils present Neck/C-Spine: COMMON NORMALS: full ROM GENERAL: Yes normal visual inspection and Yes trachea midline Resp: COMMON NORMALS: normal respiratory effort, No retractions and No use of accessory muscles EFFORT & INSPECTION: Yes able to speak in complete sentences, Yes symmetric chest movement and No tachypneic AUSCULTATION: diminished lung sounds bilateral OTHER: -on RA Cardio: COMMON NORMALS: regular rate, regular rhythm, S1 normal heart sound present, S2 normal heart sound present and No murmurs present (Cardio) RATE: regular rate RHYTHM: regular rhythm HEART SOUNDS: S1 normal heart sound present and S2 normal heart sound present GI: COMMON NORMALS: Normal to inspection, nondistended, normoactive bowel sounds present, Soft to palpation and non-tender INSPECTION: Yes central obesity PALPATION: Yes Soft to palpation Extremity: COMMON NORMALS: normal to inspection, full ROM and no clubbing, cyanosis or edema; negative for no pedal edema Neuro: COMMON NORMALS: patient oriented x3, moves all extremities, no focal motor deficits and no sensory deficits noted SENSORIUM/ORIENTATION: Yes alert Psych: COMMON NORMALS: mental status grossly normal, Normal thought process present, cooperative, normal affect and speech normal SPEECH: Yes normal speech THOUGHT PROCESS: Normal thought process present Skin: COMMON NORMALS: no rashes or lesions noted, no jaundice, no petechiae and no mottling GENERAL SKIN EXAM: no rashes or lesions noted Data : 02/25/20 19:24 02/25/20 19:24 A&P Assessment and plan (1) Chest pain: -has known hx of CAD s/p CABG x 2 -Has had at least 10 episodes of chest pain, substernal with radiation to bilateral shoulder blades -Keep n.p.o. after midnight for stress testing in a.m. previous stress test in November 2018 showed small area of ischemia in the circumflex territory -Telemetry monitoring -CORRINE -Monitor vital signs -follows up with Dr. Way -no acute ischemic changes on ECG, troponins with no signficant delta noted -resume long acting nitrate, BB -noted allergy to statins -check A1c, TSH, lipid panel Status: Acute Qualifiers: Chest pain type: unspecified Qualified Code(s): R07.9 - Chest pain, unspecified (2) Essential hypertension: -monitor vital signs -resume oral antihypertensives Status: Chronic (3) Atrial fibrillation: -currently rate controlled -telemetry monitoring -resume BB, AC with Pradaxa Status: Chronic Qualifiers: Atrial fibrillation type: unspecified Qualified Code(s): I48.91 - Unspecified atrial fibrillation Additional A&P Information -GERD; resume PPI -mild transaminitis, noted previously -COPD, not oxygen dependent at baseline, no acute exacerbation -NPO after midnight -GI ppx with PPI -DVT ppx not needed as on Pradaxa -Dispo: home -Code status: FULL code Attestations Medical Necessity Statement*: Marshall Fountain's hospital stay will be less than 2 midnights for workup of chest pain including stress testing. Time Spent in Patient Care: Greater than 35 minutes (>than 50% of time spent in counselling and/or direct pt care on unit) . Coding Level of Care Code Acute Social Services Coordinator for [facility] Fwd Exam Comprehensive Diagnoses Chest pain R07.9 Chest pain type: unspecified Essential hypertension I10 Atrial fibrillation I48.91 Atrial fibrillation type: unspecified
[2020-02-25 23:44] VITALS: BP 153/70; PULSE 48; RESP 18; O2SAT 97
[2020-02-26] VITALS (36 sets, daily range): BP systolic 95–146; BP diastolic 54–82; PULSE 48–72; RESP 5–24; TEMP 36.4–36.6; O2SAT 96–100
--- NOTE | 2020-02-26 00:16 | NMCV_ITS ---
NM casey perf SPECT r/s* [id number] Marshall Fountain Age: 60 Gender: M : 1960 Exam Date: 02/26/2020 07:26 Ordering Phys: Mami Mercado MD Technologist: KELLY Michel Exam Location: [facility] Indications: CHEST PAIN STRESS TEST Please see separate stress test report in [facility] for full findings IMAGE PROTOCOL Rest/Stress 1 Lexiscan Day Radiopharmaceutical Dose (mCi) Administration Site Administered by Rest: Tc-99m 10.8 IV KELLY Bustos Sestamibi Stress:Tc-99m 32.5 IV KELLY Bustos Sestamibi Rest: 26-Feb-2020 60 Discovery 630 Stress: 26-Feb-2020 30 Discovery 630 0.4mg Lexiscan. Images obtained in supine and prone position. SPECT RESULTS Technical Quality: Excellent Raw Data Analysis: Normal Image Corrections: No attenuation or motion correction applied Summed Stress Score: 5 Summed Rest Score: 4 Summed Difference Score: 2 PERFUSION FINDINGS Moderate area of decreases uptake in the basal and mid inferolateral and apical lateral region with subtle area of reversibility in the basal inferolateral region. Decreased uptake also was noted in the mid inferior region, with a subtle area of reversibility. But compared to the prone imaging, there may not be a significant reversible defects. FUNCTIONAL RESULTS (calculated via Gated SPECT) Stress Image LV EF (%): 72 Stress EDV (mL):93 TID: 1.15 Stress ESV (mL):26 FUNCTIONAL FINDINGS: Segmental wall motion analysis revealing no gross wall motion normalities. IMPRESSIONS 1. Myocardial perfusion may revealing a moderate area of moderately decreased tracer uptake in the basal and mid inferolateral, basal inferior and apical lateral regions with subtle areas of inconsistent reversibility, suggestive of myocardial scarring with possible small areas of nadine-infarction ischemia. Because of the inconsistency, the reliability is questionable. Clinical correlation recommended 2. Normal LV ejection fraction 72%. 3. LV wall motion analysis revealing no gross wall motion normalities. 4. Normal LV volume. Dr Tad Bustos MD FACC (Electronically Signed) Final Date: 26 February 2020 12:48 S
--- NOTE | 2020-02-26 00:16 | ECG_ITS ---
[facility] Test Date: 2020-02-26 Pat Name: Marshall Fountain Department: Room: 106 Gender: Male Clinical Quality Assurance Specialist: : 1960 Requested By: Mami Mercado Order Number: [id number] Aponte MD: Jefe Way M.D. Interpretive Statements NAME OF STUDY: LEXISCAN SESTAMIBI STRESS TEST INDICATION: Chest Pain, NOTE: Please note that this is the electrocardiogram portion of the Lexiscan/Sestamibi stress test. The perfusion scan will be documented separately. DATA: Baseline heart rate was 57 beats per minute. Baseline blood pressure was 99/69 millimeters of mercury. Target heart rate was 159. Maximum heart rate achieved was 103. which was 64 % of the predicted target heart rate. Maximum blood pressure was millimeters of mercury. The reason for ending the test was completion of the protocol. The patient did not experience any symptoms. ELECTROCARDIOGRAM: BASELINE: Sinus rhythm. Normal axis. Otherwise, no ST-T changes suggestive of ischemia noted. No arrhythmia noted. EXERCISE: After Lexiscan injection, no ST-T changes suggestive of ischemic noted. No arrhythmia noted. CONCLUSION: Please note due to baseline abnormality of the EKG specificity and sensitivity of the EKG portion of LexiScan MIBI stress test will be low 1. EKG not suggestive of ischemia 2. Lexiscan injection unremarkable. 3. Perfusion scan will be documented separately. Electronically Signed On 02-28-2020 16:53:[address] M.D. [email or web address]/[id number]
[2020-02-26] MEDS: lisinopril 10 mg Tablet PO ×2 (00:45→09:55)
[2020-02-26] MEDS: isosorbide mononitrate ER 30 mg Tablet 15 MG PO ×3 (00:46→18:07)
[2020-02-26] MEDS: sodium chloride 0.9% 1,000 ML 100 ML IV (00:48)
[2020-02-26 01:09] LABS: Basophils # 0.1 10^3/uL (0.0-0.1); Basophils % 0.7 %; Eosinophils # 0.1 10^3/uL (0.0-0.8); Eosinophils % 1.9 %; Hematocrit 41.7 % (42.0-52.0); Hemoglobin 13.3 g/dL (11.7-16.6); Lymphocytes # 2.4 10^3/uL (0.8-4.8); Lymphocytes % 35.3 %; Mean Corpuscular HGB Conc 31.9 g/dL (30.0-36.0); Mean Corpuscular Volume 97.2 fL (80-94); Monocytes # 0.8 10^3/uL (0.2-0.9); Monocytes % 11.3 %; Neutrophils # 3.48 10^3/uL (1.8-7.7); Neutrophils % 50.7 %; Nucleated Red Blood Cells % 0 %; Platelet Count 229 10^3/cmm (130-400); Red Blood Count 4.29 10^6/uL (4.1-5.3); Red Cell Distribution Width 12.8 % (12.1-15.1); White Blood Count 6.9 10^3/uL (4.0-10.0)
--- NOTE | 2020-02-26 01:18 | ECG_ITS ---
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 Measurements Intervals [place] Rate: 55 P: 56 WI: 177 QRS: -13 QRSD: 106 T: 20 QT: 408 QTc: 392 Interpretive Statements SINUS BRADYCARDIA Compared to ECG 02/25/2020 21:43:30 No significant changes Electronically Signed On 02-26-2020 20:04:08 CDT by Tad Bustos M.D. [email or web address] Networkjefferson comprehensive health centerBoursorama Bankjoint township district memorial [facility].[email or web address]/store/OM/[id number]
[2020-02-26 01:26] LABS: Estmated Average Glucose 128; Hemoglobin A1C 6.1 % (4.0-6.0)
[2020-02-26 01:39] LABS: Blood Urea Nitrogen 11 mg/dL (8-23); Calcium 9.2 mg/dL (8.5-10.5); Carbon Dioxide 21 mmol/L (22-29); Chloride 105 mmol/L (98-107); Chol HDL Ratio 5.42 mg/dL (1.0-5.00); Cholesterol 168 mg/dL (0-200); Glomerular Filtration Rate 98.3 mL/min (90-130); Glucose 167 mg/dL (65-115); HDL Cholesterol 31 mg/dL (60-100); LDL Cholesterol Calculated 114 mg/dL (50-129); LDL HDL Ratio 3.68 RATIO (0.00-3.22); Osmolality Calculated 284 mOsm/kg (285-295); Sodium 137 mmol/L (136-145); Triglycerides 113 mg/dL (0-150)
[2020-02-26 01:42] LABS: Troponin 5 6HR 8.56 ng/L (0-15); Troponin 5 6HR Delta -1.44 ng/L (0-12)
[2020-02-26 01:49] LABS: Thyroid Stimulating Hormone 1.07 uIU/mL (0.27-4.20)
[2020-02-26] MEDS: regadenoson 0.4 Mg/5 ml Syringe IVP (08:14)
[2020-02-26] MEDS: atenolol 50 mg Tablet 12.5 MG PO (09:52)
[2020-02-26] MEDS: pantoprazole DR 40 mg Tablet PO (09:52)
[2020-02-26] MEDS: BRINZOLAMIDE 1% 1 DROP EYE-BOTH ×2 (09:53→15:22)
[2020-02-26] MEDS: aspirin 81 mg EC Tablet PO (09:55)
--- NOTE | 2020-02-26 11:24 | PC.NURSE ---
tolerated cardiac stress test
--- NOTE | 2020-02-26 14:33 | USCV_ITS ---
Marshall Fountain Age: 60 Gender: M : 1960 Exam Date: 02/26/2020 15:20 Ordering Phys: Dutch Sandoval MD Technologist: Gio Lindo Exam Location: [place] Indication: CHEST PAIN CAD BP: 124 / 66 HR: 52 Rhythm: Sinus Technical Quality: MEASUREMENTS (Male / Female) Normal Values 2D ECHO LV Diastolic Diameter PLAX 4.6 cm 4.2 - 5.9 / 3.9 - 5.3 cm LV Systolic Diameter PLAX 2.9 cm IVS Diastolic Thickness 1.1 cm 0.6 - 1.0 / 0.6 - 0.9 cm IVS Systolic Thickness 1.3 cm LVPW Diastolic Thickness 0.9 cm 0.6 - 1.0 / 0.6 - 0.9 cm LVPW Systolic Thickness 1.4 cm LVOT Diameter 2.1 cm LV Ejection Fraction 2D Teich 68.9 % LV Ejection Fraction MOD 2C 64.1 % LV Ejection Fraction 2C AL 65.6 % LA Diameter 4.7 cm LA Width 4.4 cm LA Height 5.6 cm RA Width 3.6 cm RA Height 4.3 cm Aorta at Sinotubular Diameter 0.8 cm M-MODE LV Diastolic Diameter MM 5.8 cm 4.2 - 5.9 / 3.9 - 5.3 cm LV Systolic Diameter MM 3.5 cm LV Ejection Fraction MM Teich 69.6 % IVS Diastolic Thickness MM 1.2 cm 0.6 - 1.0 / 0.6 - 0.9 cm IVS Systolic Thickness MM 1.7 cm LVPW Diastolic Thickness MM 1.5 cm 0.6 - 1.0 / 0.6 - 0.9 cm LVPW Systolic Thickness MM 2.2 cm RV Diastolic Diameter MM 1.2 cm Aortic Annulus Diameter 3.5 cm LA Ao Ratio MM 1.4 MV E Point Septal Separation 0.8 cm DOPPLER AV Peak Velocity 152.0 cm/s LVOT Peak Velocity 106.0 cm/s AV Area Cont Eq vti 2.4 cm squared AV Area Cont Eq pk 2.3 cm squared MV Area PHT 5.0 cm squared Mitral E to A Ratio 1.2 MV E' Velocity 11.0 cm/s Mitral E to MV E' Ratio 9.2 Mitral E to LV E' Lateral Ratio 8.0 Mitral E to LV E' Septal Ratio 10.8 TR Peak Velocity 146.0 cm/s TR Peak Gradient 8.5 mmHg TV Peak E Velocity 101.0 cm/s Right Atrial Pressure 3.0 mmHg Pulmonary Artery Systolic Pressu 11.5 mmHg PV Peak Velocity 168.0 cm/s FINDINGS Left Ventricle Normal left ventricular cavity size. Normal left ventricular systolic function. No regional wall motion abnormalities. Left ventricular ejection fraction is estimated at 69 %. Grade II/IV diastolic dysfunction, moderately elevated filling pressures. Right Ventricle The right ventricle is normal in size and function. Right Atrium The right atrium is normal in size. Left Atrium The left atrium is normal in size. Mitral Valve Moderately thickened mitral valve. Mild mitral annular calcification. No mitral valve stenosis. No mitral valve regurgitation. Aortic Valve Moderate aortic valve calcification. No aortic valve stenosis. Trace aortic valve regurgitation. Tricuspid Valve Structurally normal tricuspid valve without significant stenosis or regurgitation. Pulmonary artery systolic pressure is normal. Pulmonic Valve Structurally normal pulmonic valve without significant stenosis. There is no pulmonic regurgitation. Pericardium Normal pericardium without effusion. Aorta Normal ascending aorta dimension. CONCLUSIONS 1-Normal left ventricular cavity size. Normal left ventricular systolic function. No regional wall motion abnormalities. Left ventricular ejection fraction is estimated at 69 %. Grade II/IV diastolic dysfunction, moderately elevated filling pressures. 2-Moderate aortic valve calcification. No aortic valve stenosis. Trace aortic valve regurgitation. 3-Moderately thickened mitral valve. Mild mitral annular calcification. No mitral valve stenosis. No mitral valve regurgitation. 4-There is no pericardial effusion. 5-Pulmonary artery systolic pressure is within normal limits. 6-Right atrial pressure is around 5 mm of mercury. 7-There are no prior echocardiogram studies to compare. Jefe Way MD (Electronically Signed) Final Date: 26 February 2020 17:28 S
--- NOTE | 2020-02-26 14:39 | PC.CHAP ---
Pastoral Care Encounter/Spiritual Assessment Type of Contact [] Declined spring tier visit [] Patient/Family/Request visit [] Outpatient visit [] Follow-up visit [] Physician referral [] Code/Alert [X] Routine visit [] Staff referral [] Actively dying [] Patient sleeping [] Family support [] [] Out of room [] Palliative care [] [] Receiving care in room [] Pre-surgical visit [] Trauma [] Long length of stay [] ICU visit [] Other: Relational/Emotional Strength [] Patient feels connected with others/family/visitors/staff [] Distress [] Loneliness/isolation [] Abandonment Spirituality of Patient [] Person of Rachel [] Attends Yarsani of their Rachel [] Believes in Prayer [] Reads Bible or Religion materials [] There are Spiritual issues to be addressed Registered Land Surveyor Interventions [] Prayer [] Active listening [] Non-anxious presence [] Spiritual/emotional support [] Crisis/trauma care [] Spiritual counseling [] Bereavement support [] Provided bereavement packet [] Provided Bible/devotional materials [] Provided toy/stuffed animal, coloring book to patient or family member [] Provided Communion [] Anointing/[place] [] Salvation [] Completed spiritual assessment [] Other: Impact on Illness or Injury [] Angry [] Fearful [] Anxious [] Often cries [] Exhaustion [] Unable to work [] Unable to attend latter-day [] Unable to walk/stand [] Unable to read [] Unable to drive [] Unable to eat/drink [] Unable to sleep [] Unable to be with family [] Patient intubated [] Other: Summary Time spent with patient
--- NOTE | 2020-02-26 19:01 | PC.NURSE ---
discharge instructions given and explained.pt verb understanding of instructions.discharged via w/c to exit.daughter to drive pt home.
--- NOTE | 2020-02-26 19:35 | P.DS_ITS ---
Discharge Providers Date of Admission: 02/25/20 21:43 Date of Discharge: February 26, 2020 Attending Provider at Admission: Mami Mercado MD Attending Provider at Discharge: Dutch Sandoval Primary Care Provider: Waldo Mckay Diagnoses at Discharge Discharge Diagnosis (1) Chest pain: Status: Acute Qualifiers: Chest pain type: unspecified Qualified Code(s): R07.9 - Chest pain, unspecified (2) Essential hypertension: Status: Chronic (3) Atrial fibrillation: Status: Chronic Qualifiers: Atrial fibrillation type: unspecified Qualified Code(s): I48.91 - Unspecified atrial fibrillation (4) Pre-diabetes: Status: Acute Reason for Visit Reason for Visit: chest pain Hospital Course Hospital Course: This very pleasant 60-year-old gentleman with history of coronary disease, CABG, A. fib, HTN, former smoker was assessed under observation due to episodes of short lasting sharp chest pain substernally, and pressure and discomfort radiating between shoulder blades. Pain was not related to movement, inspiration or breathing, and not reproducible on palpation. Did not feel like heartburn. He had only one short lasting episode in the hospital. His troponin was not elevated. EKG not suggestive of acute VT. His vital signs remained stable without high per or hypotension. There were no symptoms to suggest any large vessel dissection. His d-dimer was not elevated as well. Was assessed by stress testing, TTE. On TTE grade 2 diastolic dysfunction, otherwise no major abnormalities noted. Normal EF. He was asymptomatic during the stress test, and remained asymptomatic subsequently. Moderate area of moderately decreased tracer uptake in the basal and mid inferolateral, basal inferior and apical lateral regions with several areas of inconsistent reversibility, suggestive of myocardial scarring with possible small areas of nadine-infarct ischemia. Because of inconsistency reliability noted questionable. Discussed the results with the reading weed control inspector, who also compared to prior stress testing in 2019. The small area of nadine-infarct ischemia appears to be new since then. Discussed also with his weed control inspector. Given results of stress test, as well as other findings during his hospitalization for now recommendation is for optimization of medical therapy, currently starting with increase in Imdur up to 30 mg twice a day, and with recommendation to follow-up with cardiology in office. There is no room to go up on beta-cresencio due to his already soft heart rates. Discussed results and recommendations with patient and his daughter. Both are agreeable with assessment plan. Outpatient duplex of right lower extremity is ordered, although there is no swelling, no erythema, or other symptoms of VTE, but he did notice there was a dilated vein in the right foot, although this is since resolved. Suspicion for a VTE is low, but will confirm with imaging. Of note his A1c is noted to be 6.1. Please revisit this also with him in office and discuss risk of prediabetes. Physical Exam Const: COMMON NORMALS: no acute distress and patient oriented x3 HENMT: COMMON NORMALS: oropharynx normal Neck/C-Spine: COMMON NORMALS: no JVD Resp: COMMON NORMALS: normal respiratory effort and clear to auscultation bilaterally AUSCULTATION: clear to auscultation bilaterally Cardio: COMMON NORMALS: no JVD, regular rhythm, S1 normal heart sound present, S2 normal heart sound present and No murmurs present (Cardio) RHYTHM: regular rhythm HEART SOUNDS: S1 normal heart sound present and S2 normal heart sound present GI: COMMON NORMALS: Normal to inspection, nondistended, normoactive bowel sounds present, Soft to palpation and non-tender PALPATION: Yes Soft to palpation Extremity: COMMON NORMALS: no joint enlargement and no pedal edema Neuro: COMMON NORMALS: patient oriented x3 and moves all extremities Skin: COMMON NORMALS: no rashes or lesions noted GENERAL SKIN EXAM: no rashes or lesions noted Discharge Data Data Completed and Pending: Completed Studies During Hospitalization Category Date Time Status Sestamibi Stress Test Request Marcusi ne Exams 02/26/20 00:16 Draft XR chest 1V victoriano ble [id number] Stat Exams 02/25/20 19:18 Completed NM casey perf SPECT r/s* [id number] Routin e Nuc Med 02/26/20 00:16 Completed CV echo complete* [id number] Routine Ultrasound 02/26/20 14:33 Completed Labs from last 24 hours 02/26/20 02/26/20 02/26/20 01:00 01:00 01:00 WBC RBC Hgb Hct MCV MCH MCHC RDW Plt Count MPV Neut % (Auto) Lymph % (Auto) Sutton % (Auto) Eos % (Auto) Baso % (Auto) Neut # (Auto) Lymph # (Auto) Sutton # (Auto) Eos # (Auto) Baso # (Auto) Nucleated RBC % (a uto) Nucleated RBCs # D-Dimer Sodium Potassium Chloride Carbon Dioxide Anion Gap BUN Creatinine GFR Calculation Glucose Estimat Average Gl ucose 128 Hemoglobin A1c 6.1 H Calculated Osmolal ity Calcium Total Bilirubin AST ALT Alkaline Phosphata se Troponin T Baselin e Troponin T 120 Min [place] Delta Troponin T Troponin T Hi Sens 6Hr Troponin T Hi Sens 6Hr Delta Total Protein Albumin Globulin Triglycerides 113 Cholesterol 168 LDL Cholesterol, C alc 114 HDL Cholesterol 31 L LDL/HDL Ratio 3.68 H Cholesterol/HDL Ra delio 5.42 H TSH 1.07 02/26/20 02/26/20 02/26/20 01:00 01:00 01:00 WBC 6.9 RBC 4.29 Hgb 13.3 Hct 41.7 L MCV 97.2 H MCH 31.0 MCHC 31.9 RDW 12.8 Plt Count 229 MPV 12.0 H Neut % (Auto) 50.7 Lymph % (Auto) 35.3 Sutton % (Auto) 11.3 Eos % (Auto) 1.9 Baso % (Auto) 0.7 Neut # (Auto) 3.48 Lymph # (Auto) 2.4 Sutton # (Auto) 0.8 Eos # (Auto) 0.1 Baso # (Auto) 0.1 Nucleated RBC % (a uto) 0 Nucleated RBCs # 0.0 D-Dimer Sodium 137 Potassium 4.0 Chloride 105 Carbon Dioxide 21 L Anion Gap 15.0 BUN 11 Creatinine 0.8 GFR Calculation 98.3 Glucose 167 H Estimat Average Gl ucose Hemoglobin A1c Calculated Osmolal ity 284 L Calcium 9.2 Total Bilirubin AST ALT Alkaline Phosphata se Troponin T Baselin e Troponin T 120 Min [place] Delta Troponin T Troponin T Hi Sens 6Hr 8.56 Troponin T Hi Sens 6Hr Delta -1.44 L Total Protein Albumin Globulin Triglycerides Cholesterol LDL Cholesterol, C alc HDL Cholesterol LDL/HDL Ratio Cholesterol/HDL Ra delio TSH 02/25/20 02/25/20 02/25/20 21:10 19:24 19:24 WBC RBC Hgb Hct MCV MCH MCHC RDW Plt Count MPV Neut % (Auto) Lymph % (Auto) Sutton % (Auto) Eos % (Auto) Baso % (Auto) Neut # (Auto) Lymph # (Auto) Sutton # (Auto) Eos # (Auto) Baso # (Auto) Nucleated RBC % (a uto) Nucleated RBCs # D-Dimer <= 0.27 Sodium Potassium Chloride Carbon Dioxide Anion Gap BUN Creatinine GFR Calculation Glucose Estimat Average Gl ucose Hemoglobin A1c Calculated Osmolal ity Calcium Total Bilirubin AST ALT Alkaline Phosphata se Troponin T Baselin e 10 Troponin T 120 Min [place] 7.06 Delta Troponin T -2.94 L Troponin T Hi Sens 6Hr Troponin T Hi Sens 6Hr Delta Total Protein Albumin Globulin Triglycerides Cholesterol LDL Cholesterol, C alc HDL Cholesterol LDL/HDL Ratio Cholesterol/HDL Ra delio TSH 02/25/20 19:24 WBC RBC Hgb Hct MCV MCH MCHC RDW Plt Count MPV Neut % (Auto) Lymph % (Auto) Sutton % (Auto) Eos % (Auto) Baso % (Auto) Neut # (Auto) Lymph # (Auto) Sutton # (Auto) Eos # (Auto) Baso # (Auto) Nucleated RBC % (a uto) Nucleated RBCs # D-Dimer Sodium 137 Potassium 4.5 Chloride 102 Carbon Dioxide 25 Anion Gap 14.5 BUN 12 Creatinine 0.8 GFR Calculation 98.3 Glucose 102 Estimat Average Gl ucose Hemoglobin A1c Calculated Osmolal ity 280 L Calcium 9.0 Total Bilirubin 0.2 AST 44 H ALT 67 H Alkaline Phosphata se 79 Troponin T Baselin e Troponin T 120 Min [place] Delta Troponin T Troponin T Hi Sens 6Hr Troponin T Hi Sens 6Hr Delta Total Protein 7.8 Albumin 4.7 Globulin 3.1 Triglycerides Cholesterol LDL Cholesterol, C alc HDL Cholesterol LDL/HDL Ratio Cholesterol/HDL Ra delio TSH Vitals: Last Vital Signs Temp 97.5 F L 02/26/20 18:16 Pulse 54 L 02/26/20 18:16 Resp 16 02/26/20 18:16 BP 127/71 02/26/20 18:16 Pulse Ox 97 02/26/20 18:16 Discharge Plan Discharge Patient Disposition: Home Condition: Stable Prescriptions: Continued Pradaxa 150 mg capsule 150 mg PO BID RF: 0 esomeprazole magnesium 40 mg capsule,delayed release(DR/EC) 40 mg PO DAILY RF: 0 aspirin [Adult Low Dose Aspirin] 81 mg tablet,delayed release (DR/EC) 81 mg PO DAILY RF: 0 cyclobenzaprine 10 mg tablet 10 mg PO DAILY PRN (Reason: Muscle Pain) RF: 0 red yeast rice 600 mg capsule 1,200 mg PO DAILY RF: 0 famotidine 20 mg tablet 20 mg PO DAILY RF: 0 latanoprost 0.005 % drops 1 drop ophthalmic (eye) BEDTIME RF: 0 Azopt 1 % drops,suspension 1 drop ophthalmic (eye) TID RF: 0 lisinopril 10 mg tablet 10 mg PO DAILY RF: 0 atenolol 25 mg tablet 12.5 mg PO DAILY 30 Days Qty: 15 RF: 6 nitroglycerin [Nitrostat] 0.4 mg tablet, sublingual 0.4 mg SUBLINGUAL Q5M PRN (Reason: chest pain) Qty: 50 RF: 3 albuterol sulfate 90 mcg/actuation HFA aerosol inhaler 2 puff INHALATION Q6H PRN (Reason: Shortness Of Breath) RF: 0 Changed isosorbide mononitrate 30 mg tablet extended release 24 hr 30 mg PO BID 90 Days Qty: 90 RF: 3 Discharge Orders: Discharge Order (Routine); Ordered 02/26/20 Ordered By: Dutch Sandoval Other Ambulatory Orders: [place] [id number] (Routine) Timeframe: 3 Days Location: [facility] Ordered By: Dutch Sandoval Referrals: CARDIOLOGY [Provider Group] - 1 week ([facility] will contact you to schedule an follow-up appointment in 1 week. If you haven't heard from them by tomorrow afternoon. Please call ) Waldo Mckay [Primary Care Provider] - ([facility] will contact you to schedule an follow-up appointment in 4 to 7 days. If you haven't heard from them by tomorrow afternoon. Please call ) Discharge Diet: Cardiac Discharge Activity: Increase activity as tolerated Patient Instructions: Coronary Artery Disease (DC), Chest Pain (DC), Chest Pain Stoplight Activity Restrictions/Additional Instructions: Seek medical attention if chest pain is frequent or becomes persistent. Please discuss with your primary care foctor regarding A1c result of 6.1%. You may be at risk of pre-diabetes. 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
== END 2020-02-26 19:03 | disposition home or self-care (01) ==
LOC: ER 21:48 → CSU 23:21
PROVIDERS: Emergency Medicine; Admitting Provider Family Medicine; PCP Physician Assistant Medical; Visit Provider Internal Medicine
DX: R07.9 Chest pain, unspecified (principal); I25.10 Atherosclerotic heart disease of native coronary artery without angina pectoris; I10 Essential (primary) hypertension; I48.91 Unspecified atrial fibrillation; Z95.1 Presence of aortocoronary bypass graft; Z79.82 Long term (current) use of aspirin; Z87.891 Personal history of nicotine dependence; K21.9 Gastro-esophageal reflux disease without esophagitis; Z82.49 Family history of ischemic heart disease and other diseases of the circulatory system
CPT/HCPCS: 12345; 36415; 71045; 78452; 80048; 80053; 80061; 83036; 84443; 84484; 85025; 85378; 93005; 93017; 93306; 99282; 99285; A9500; G0378; J2785; J7030

== ENCOUNTER → 2020-11-03 09:39 | Outpatient (BNVA) | payer MEDICARE, MEDICAID, SELFPAY | PROVIDERS: PCP Physician Assistant Medical; Visit Provider Internal Medicine Pulmonary Disease | DX: J18.9 Pneumonia, unspecified organism (principal) | CPT/HCPCS: 71046 ==

== ENCOUNTER → 2020-12-02 10:31 | Outpatient (BNVA) | payer MEDICARE, MEDICAID, SELFPAY | PROVIDERS: PCP Physician Assistant Medical; Visit Provider Internal Medicine Pulmonary Disease | DX: R06.00 Dyspnea, unspecified (principal) | CPT/HCPCS: 87635 ==

== ENCOUNTER 2020-12-09 10:00 | Outpatient (CLI) | payer MEDICARE, MEDICAID, SELFPAY ==
--- NOTE | 2020-12-09 10:11 | CT_ITS ---
WS: [id number] LDCT LUNG CANCER SCREENING HISTORY: TOBACCO USE TECHNIQUE: Axial imaging performed from the apices to 1 cm below the costophrenic angles. Coronal and sagittal reformats are submitted with axial MIP series. All CT scans at [facility] use at least one of these dose optimization techniques: automated exposure control; mA and/or kV adjustment per patient size (includes targeted exams where dose is matched to clinical indication); or iterativ e reconstruction. DLP: 51.42 mGy.cm DIvol: 1.58 mGy COMPARISON: 07/28/2019 Diagnostic quality: Satisfactory Lung Nodules: Sub-3 mm nodule RIGHT upper lobe, image 44 of series 3. Benign calcification LEFT upper lobe measures 8 mm at this calcification abuts the fissure and is stable. Lungs: Hyperinflated lungs with peripheral reticulations. Consistent with developing fibrosis. No hon eycombing. No endobronchial lesion. Heart: Normal size heart. Prior CABG. Mild bulging of the RIGHT ventricle contour is similar to the p rior study. Other findings: Small hiatal hernia. Subcentimeter and stable mediastinal and hilar lymph nodes. CT/CT lung screening [id number] IMPRESSION: LUNG-RADS: 2-Benign Appearance or Behavior FOLLOW UP: 12 Month: Continue annual screening with LDCT OTHER FINDINGS (S MODIFIER): None.
--- NOTE | 2020-12-09 10:27 | PFTS_ITS ---
Date of Study:12/09/20 Date of Dictation: MECHANICS: Forced vital capacity (FVC) is normal. Forced expiratory volume in one second (FEV1) is normal. FEV1/FVC is normal. FLOW VOLUME LOOP: Normal. LUNG VOLUMES: Total lung capacity (TLC) is reduced. Residual volume (RV) is reduced. DIFFUSING CAPACITY FOR CARBON MONOXIDE: Mild reduced. INTERPRETATION: The spirometry is normal. Lung volumes are consistent with mild restriction. This constellation can be seen in early interstitial lung disease. Gas exchange (DLCO) is mildly reduced. MTDD
== END 2020-12-09 10:01 | disposition home or self-care (01) ==
LOC: RT 10:02
PROVIDERS: PCP Physician Assistant Medical; Visit Provider Internal Medicine Pulmonary Disease
DX: Z12.2 Encounter for screening for malignant neoplasm of respiratory organs (principal); F17.210 Nicotine dependence, cigarettes, uncomplicated; R06.00 Dyspnea, unspecified
CPT/HCPCS: 71271; 94010; 94726; 94729

== ENCOUNTER → 2021-01-05 10:24 | Outpatient (BNVA) | payer MEDICARE, MEDICAID, SELFPAY | PROVIDERS: PCP Physician Assistant Medical; Visit Provider Internal Medicine Pulmonary Disease | DX: J98.4 Other disorders of lung (principal); R05 Cough; J44.9 Chronic obstructive pulmonary disease, unspecified; I10 Essential (primary) hypertension; Z12.2 Encounter for screening for malignant neoplasm of respiratory organs | CPT/HCPCS: 85651; 86038; 86140; 86225; 86235; 86431 ==

== ENCOUNTER 2021-02-04 12:02 | Outpatient (CLI) | payer MEDICARE, MEDICAID, SELFPAY ==
--- NOTE | 2021-02-04 12:21 | XR_ITS ---
WS: [id number] Left hand, 3 views, 02/04/2021 Clinical Data: J98.4 - Other disorders of lung Comparison: None. Findings: No fractures or dislocations are seen. The soft tissues are unremarkable. The joint spaces are normal Periarticular demineralization or calcifications are seen. XR/XR hand LT min 3V* [id number] Impression: Negative left hand.
--- NOTE | 2021-02-04 12:21 | XR_ITS ---
WS: [id number] Sacroiliac joints, 3 views, 02/04/2021 Clinical Data: L40.9 - Psoriasis, unspecified Comparison: None. Findings: The SI joints are normal in width. No erosion, sclerosis or destruction is seen. There are no fractur es or dislocations. The adjacent visualized pelvis and hips are unremarkable. The pubic symphysis is normal. XR/XR sacroiliac jts m 3V [id number] Impression: Negative SI joints.
--- NOTE | 2021-02-04 12:21 | XR_ITS ---
WS: [id number] Lumbar spine, 3 views, 02/04/2021 Clinical Data: R76.8 - Other specified abnormal immunological findings i... Comparison: None. Findings: No compression fractures or subluxation is seen. No disc space narrowing is seen. The transverse proc esses and SI joints are normal. There is minimal osteophyte arthritic change of all the lumbar vertebral bodies. There is calcificati on of the abdominal aorta wall but no aneurysm. XR/XR lumbar spine 2-3V* [id number] Impression: Minimal osteoarthritis of the lumbar vertebral bodies.
--- NOTE | 2021-02-04 12:21 | XR_ITS ---
WS: [id number] Right hand, 3 views, 02/04/2021 Clinical Data: J98.4 - Other disorders of lung Comparison: None. Findings: No fractures or dislocations are seen. The soft tissues are unremarkable. The joint space s are normal No periarticular demineralization or calcifications are seen. XR/XR hand RT min 3V* [id number] Impression: Negative right hand.
== END 2021-02-04 12:03 | disposition home or self-care (01) ==
LOC: RAD 12:13
PROVIDERS: PCP Physician Assistant Medical; Visit Provider Internal Medicine
DX: Z11.59 Encounter for screening for other viral diseases; Z11.1 Encounter for screening for respiratory tuberculosis; J44.9 Chronic obstructive pulmonary disease, unspecified; R76.8 Other specified abnormal immunological findings in serum; M25.50 Pain in unspecified joint; Z87.891 Personal history of nicotine dependence
CPT/HCPCS: 72100; 72202; 73130; 82306; 82550; 86160; 86480; 86617; 86704; 86803; 87340; 99204

== ENCOUNTER → 2021-02-10 15:05 | Outpatient (BNVA) | payer MEDICARE, MEDICAID, SELFPAY | PROVIDERS: PCP Physician Assistant Medical; Visit Provider Nurse Practitioner Family | DX: J22 Unspecified acute lower respiratory infection (principal) | CPT/HCPCS: 71046 ==

== ENCOUNTER → 2021-04-22 09:17 | Outpatient (BNVA) | payer MEDICARE, MEDICAID, SELFPAY | PROVIDERS: PCP Physician Assistant Medical; Visit Provider Internal Medicine | DX: J98.4 Other disorders of lung (principal); R76.8 Other specified abnormal immunological findings in serum; M25.50 Pain in unspecified joint; E55.9 Vitamin D deficiency, unspecified; Z79.899 Other long term (current) drug therapy; Z79.01 Long term (current) use of anticoagulants; Z87.891 Personal history of nicotine dependence; R06.02 Shortness of breath; Z91.09 Other allergy status, other than to drugs and biological substances | CPT/HCPCS: 36415; 80053; 81003; 81401; 82550; 82657; 82785; 85025; 85651; 86003; 86140; 99214 ==

== ENCOUNTER → 2021-09-20 12:58 | Outpatient (BNVA) | payer MEDICARE, MEDICAID, SELFPAY | PROVIDERS: PCP Nurse Practitioner Family; Visit Provider Nurse Practitioner Family | DX: R00.2 Palpitations (principal); Z87.891 Personal history of nicotine dependence | CPT/HCPCS: 99213 ==

== ENCOUNTER → 2022-04-06 12:48 | Outpatient (BNVA) | payer MEDICARE, MEDICAID, SELFPAY | PROVIDERS: PCP Nurse Practitioner Family; Visit Provider Internal Medicine | DX: I25.10 Atherosclerotic heart disease of native coronary artery without angina pectoris (principal); I48.91 Unspecified atrial fibrillation; I10 Essential (primary) hypertension; Z87.891 Personal history of nicotine dependence; Z95.1 Presence of aortocoronary bypass graft | CPT/HCPCS: 99213; 99214 ==

== ENCOUNTER → 2022-12-07 14:57 | Outpatient (BNVA) | payer MEDICARE, MEDICAID, SELFPAY | PROVIDERS: PCP Nurse Practitioner Family; Visit Provider Specialist | DX: I48.91 Unspecified atrial fibrillation (principal); I10 Essential (primary) hypertension; Z87.891 Personal history of nicotine dependence | CPT/HCPCS: 99214 ==

== ENCOUNTER 2023-04-13 08:18 | Emergency (ER) | payer MEDICARE, MEDICAID, SELFPAY ==
[2023-04-13 08:21] VITALS: BP 198/92; PULSE 55; RESP 16; O2SAT 99
--- NOTE | 2023-04-13 08:22 | ECG_ITS ---
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 Measurements Intervals [place] Rate: 53 P: 26 RI: 189 QRS: -1 QRSD: 107 T: 22 QT: 419 QTc: 396 Interpretive Statements SINUS BRADYCARDIA Compared to ECG 02/26/2020 01:52:51 No significant changes Electronically Signed On 04-13-2023 11:31:13 CDT by Irasema Delatorre M.D. [email or web address] medical centerPongo [facility].[email or web address]/NU/[id number] f
--- NOTE | 2023-04-13 08:23 | XR_ITS ---
WS: [id number] PORTABLE CHEST HISTORY: dyspnea/cough COMPARISON: 02/10/2021 Prior CABG. Lungs are clear and well expanded. No pleural effusion or pneumothorax. Cardiac size: Normal. Mediastinum/Aorta: Normal mediastinum. No osseous abnormality seen. IMPRESSION: Unremarkable portable chest.
--- NOTE | 2023-04-13 08:43 | ED_ITS ---
HPI - Arrhythmia/Palpitations General: Chief Complaint: Arrhythmia/Palpitations Stated Complaint: afib with flutter, chest pain Time Seen by Provider: 04/13/23 08:20 Source: patient Mode of arrival: ambulatory History of Present Illness: 83-year-old male with a history of atrial fibrillation presents emergency room with complaint of transient chest pain and an episode of rapid heart rate this morning. He is not on anything for rate control he is on Pradaxa for anticoagulation he is also on isosorbide mononitrate and losartan he does not usually take those until 9 AM so he had not taken them prior to coming in. Heart rate on arrival here is in the 60s blood pressure is elevated. MD complaint: rapid heart beat and heart racing Onset (ago): hour(s) Duration: intermittent Severity: mild Context: occurred during rest Arrhythmia history: atrial fibrillation Associated symptoms: Deny anxiety, cough, diaphoresis, muscle cramps, nausea, paresthesias, pre-syncope, sense of impending doom, short of breath, syncope or vomiting Review of Systems Const: Denies: diaphoresis Card: Denies: syncope or pre-syncope Resp: Denies: dyspnea GI: Denies: nausea or vomiting : Denies: dysuria, urinary frequency or urinary urgency Musc: Denies: muscle cramps Skin/Breast: Denies: rash Psych: Denies: anxiety PFSH ED PFSH: Medical History Atrial fibrillation CAD (coronary artery disease) COPD (chronic obstructive pulmonary disease) Essential hypertension Lower respiratory infection Surgical History S/P CABG x 2 S/P lens implant S/P nasal surgery Family History Mother Hypertension Stroke Diabetes Myocardial infarction Chronic kidney disease (CKD) Father Hypertension Sister Hypertension Stroke Social History Smoking and tobacco/nicotine status: former use of tobacco/nicotine Quit status (tobacco/nicotine): has quit using Year quit tobacco: 2007 1.5pp [id number] Second hand smoke exposure: No Alcohol intake: current Alcohol intake frequency: holidays/special occasions only Substance/Drug Use: never Lives independently: Yes Household members: none Housing: House Marital status: / Marital status details: x 6 yrs service: No Current occupational status: disabled Pets and animals: No Do you think of yourself as: Straight/Heterosexual Current gender identity: Male Physical Exam Const: GENERAL APPEARANCE: cooperative and comfortable ORIENT ATION/CONSCIOUSNESS: Yes awake, Yes oriented to person, Yes oriented to place and Yes oriented to time HENMT: COMMON NORMALS: normocephalic, atraumatic and hearing grossly normal bilaterally HEAD & SCALP: normocephalic and atraumatic Resp: COMMON NORMALS: normal respiratory effort, No retractions, No use of accessory muscles and clear to auscultation bilaterally AUSCULTATION: clear to auscultation bilaterally Cardio: COMMON NORMALS: regular rate and No murmurs present (Cardio) RATE: regular rate RHYTHM: abnormal rhythm irregularly irregular GI: COMMON NORMALS: Soft to palpation and No hepatosplenomegaly present AUSCULTATION: Yes normoactive bowel sounds PALPATION: Yes Soft to palpation, No Tenderness to palpation present (GI), No Guarding due to palpation present (GI) and Yes No hepatosplenomegaly present Extremity: COMMON NORMALS: normal to inspection, capillary refill normal, no clubbing, cyanosis or edema, no calf tenderness and no pedal edema Neuro: SENSORIUM/ORIENTATION: Yes oriented to person, Yes oriented to place and Yes oriented to time Skin: COMMON NORMALS: no rashes or lesions noted GENERAL SKIN EXAM: no rashes or lesions noted Course Vital Signs: Vital signs: Vital Signs Pulse Rate 68 04/13/23 09:01 Respiratory Rate 16 04/13/23 09:01 Blood Pressure 201/111 04/13/23 09:01 Pulse Oximetry 98 04/13/23 09:01 Oxygen Delivery Me thod Room Air 04/13/23 09:01 MDM - Arrhythmia/Palpitations Medical Decision Making Blood pressure improved. Rate well controlled entire time he is here. We will start him on Toprol-XL 12.5 p.o. daily additionally increase losartan to 100 mg daily. Recheck with primary care within the next week. Case management make arrangements for a outpatient 48-hour Holter monitor. Medical Records I reviewed the patient's medical records. Lab Data I reviewed the patient's lab results. 04/13/23 07:16 04/13/23 07:16 Laboratory Results WBC 6.97 10^3/uL (3.29-11.43) 04/13/23 07:16 RBC 4.51 10^6/uL (3.85-5.65) 04/13/23 07:16 Hgb 14.10 g/dL (11.27-16.99) 04/13/23 07:16 Hct 42.8 % (37-53) 04/13/23 07:16 MCV 94.9 fl (82-101) 04/13/23 07:16 MCH 31.3 pg (27-33) 04/13/23 07:16 MCHC 32.9 g/dL (30-55) 04/13/23 07:16 RDW 12.9 % (12.1-15.1) 04/13/23 07:16 Plt Count 235 10^3/cmm (157-399) 04/13/23 07:16 MPV 11.8 fL (7.4-10.4) H 04/13/23 07:16 Neut % (Auto) 47.9 % 04/13/23 07:16 Lymph % (Auto) 36.9 % 04/13/23 07:16 Amador % (Auto) 12.1 % 04/13/23 07:16 Eos % (Auto) 2.4 % 04/13/23 07:16 Baso % (Auto) 0.4 % 04/13/23 07:16 Neut # (Auto) 3.34 10^3/uL (1.8-7.7) 04/13/23 07:16 Lymph # (Auto) 2.6 10^3/uL (0.8-4.8) 04/13/23 07:16 Amador # (Auto) 0.8 10^3/uL (0.2-0.9) 04/13/23 07:16 Eos # (Auto) 0.2 10^3/uL (0.0-0.8) 04/13/23 07:16 Baso # (Auto) 0.0 10^3/uL (0.0-0.1) 04/13/23 07:16 Nucleated RBC % (auto) 0 % 04/13/23 07:16 Nucleated RBCs # 0.0 /100WBC 04/13/23 07:16 Sodium 141 mmol/L (136-145) 04/13/23 07:16 Potassium 3.9 mmol/L (3.5-5.1) 04/13/23 07:16 Chloride 106 mmol/L (98-107) 04/13/23 07:16 Carbon Dioxide 24 mmol/L (22-29) 04/13/23 07:16 Anion Gap 14.9 (5-19) 04/13/23 07:16 BUN 14 mg/dL (8-23) 04/13/23 07:16 Creatinine 0.8 mg/dL (0.7-1.2) 04/13/23 07:16 GFR Calculation 97.3 mL/min (90-130) 04/13/23 07:16 Glucose 116 mg/dL (65-115) H 04/13/23 07:16 Calculated Osmolality 293 mOsm/kg (285-295) 04/13/23 07:16 Calcium 9.4 mg/dL (8.5-10.5) 04/13/23 07:16 Total Bilirubin 0.3 mg/dL (0.15-1.2) 04/13/23 07:16 AST 27 U/L (0-40) 04/13/23 07:16 ALT 42 U/L (0-41) H 04/13/23 07:16 Alkaline Phosphatase 82 U/L (40-130) 04/13/23 07:16 Troponin T Baseline 10 ng/L (0-15) 04/13/23 07:16 Troponin T 120 Minute 9.41 ng/L (0-15) 04/13/23 09:15 Delta Troponin T -0.59 ABS# (0-10) L 04/13/23 09:15 Total Protein 6.4 g/dL (6.6-8.7) L 04/13/23 07:16 Albumin 4.6 g/dL (3.5-5.2) 04/13/23 07:16 Globulin 1.8 g/dL (1.3-4.6) 04/13/23 07:16 XR interpretation done by ED provider, pending radiology final review Discharge Plan Discharge Patient Disposition: Home Clinical Impression: Atrial fibrillation, HTN (hypertension) Condition: Stable Prescriptions: New Toprol XL 25 mg tablet extended release 24 hr 12.5 mg PO DAILY Qty: 15 0RF losartan 100 mg tablet 100 mg PO DAILY Qty: 30 0RF Discontinued losartan 25 mg tablet 50 mg PO DAILY Qty: 180 3RF No Action acetaminophen 325 mg capsule 325 mg PO QID PRN (Reason: Pain) multivitamin Tablet 1 tab PO DAILY esomeprazole magnesium 40 mg capsule,delayed release(DR/EC) 40 mg PO DAILY aspirin [Adult Low Dose Aspirin] 81 mg tablet,delayed release (DR/EC) 81 mg PO DAILY latanoprost 0.005 % drops 1 drop ophthalmic (eye) BEDTIME Rx Instructions: (both eyes) Azopt 1 % drops,suspension 1 drop ophthalmic (eye) TID nitroglycerin [Nitrostat] 0.4 mg tablet, sublingual 0.4 mg SUBLINGUAL Q5M PRN (Reason: chest pain) Qty: 25 2RF Pradaxa 150 mg capsule 150 mg PO BID Qty: 180 3RF isosorbide mononitrate 30 mg tablet extended release 24 hr 30 mg PO BID Qty: 180 3RF albuterol sulfate 90 mcg/actuation HFA aerosol inhaler 2 puff INHALATION Q6H PRN (Reason: Shortness Of Breath) loratadine 10 mg tablet 10 mg PO DAILY PRN (Reason: Allergic Symptoms) albuterol sulfate 2.5 mg /3 mL (0.083 %) solution for nebulization 2.5 mg inhalation Q6H PRN (Reason: Shortness Of Breath) Discharge Orders: Discharge ED (Routine); Ordered 04/13/23 Ordered By: Romel Enrique Referrals: Ignacio Grullon [Primary Care Provider] - Discharge Diet: Usual diet Discharge Activity: Resume usual activity Patient Instructions: Opioid Safety, Pain Management Activity Restrictions/Additional Instructions: You are seen today for complaint of elevated blood pressure and rapid heart rate. Recommend that you have a 48-hour Holter monitor to evaluate your rate control and atrial fibrillation Case management make arrangements for this and call you with a time to have it done. For your blood pressure recommend that you increase your losartan to 100 mg daily. For rate control and blood pressure recommend he start on Toprol-XL 25 mg tablet half a tablet daily. Follow-up with your doctor within the next week to reevaluate blood pressure continue your other medications as previously prescribed Coding Level of Care Code ED Security Operations Engineer for Jn Batista
[2023-04-13 08:55] LABS: Basophils % 0.4 %; Eosinophils # 0.2 10^3/uL (0.0-0.8); Eosinophils % 2.4 %; Hematocrit 42.8 % (37-53); Lymphocytes # 2.6 10^3/uL (0.8-4.8); Lymphocytes % 36.9 %; Mean Corpuscular HGB Conc 32.9 g/dL (30-55); Mean Corpuscular Hemoglobin 31.3 pg (27-33); Mean Corpuscular Volume 94.9 fl (82-101); Mean Platelet Volume 11.8 fL (7.4-10.4); Monocytes # 0.8 10^3/uL (0.2-0.9); Monocytes % 12.1 %; Neutrophils # 3.34 10^3/uL (1.8-7.7); Neutrophils % 47.9 %; Nucleated Red Blood Cells % 0 %; Platelet Count 235 10^3/cmm (157-399); Red Blood Count 4.51 10^6/uL (3.85-5.65); Red Cell Distribution Width 12.9 % (12.1-15.1); White Blood Count 6.97 10^3/uL (3.29-11.43)
[2023-04-13] MEDS: amlodipine 10 mg Tablet PO (08:56)
[2023-04-13] MEDS: hyDRALAzine 20 mg/mL INJ 1 mL 10 MG IVP (08:56)
[2023-04-13 09:01] VITALS: BP 201/111; PULSE 68; RESP 16; O2SAT 98
[2023-04-13 09:15] LABS: Alanine Aminotransferase 42 U/L (0-41); Albumin Level 4.6 g/dL (3.5-5.2); Alkaline Phosphatase 82 U/L (40-130); Anion Gap 14.9 (5-19); Aspartate Amino Transferase 27 U/L (0-40); Blood Urea Nitrogen 14 mg/dL (8-23); Calcium 9.4 mg/dL (8.5-10.5); Carbon Dioxide 24 mmol/L (22-29); Chloride 106 mmol/L (98-107); Globulin 1.8 g/dL (1.3-4.6); Glomerular Filtration Rate 97.3 mL/min (90-130); Glucose 116 mg/dL (65-115); Osmolality Calculated 293 mOsm/kg (285-295); Potassium 3.9 mmol/L (3.5-5.1); Sodium 141 mmol/L (136-145); Total Bilirubin 0.3 mg/dL (0.15-1.2); Total Protein 6.4 g/dL (6.6-8.7)
[2023-04-13 09:16] LABS: Troponin(5th) Baseline 10 ng/L (0-15)
--- NOTE | 2023-04-13 09:22 | PC.NURSE ---
PT COMPLAINING OF CHEST TIGHTNESS AND SOB. VITAL SIGNS STABLE. PROVIDER NOTIFIED.
[2023-04-13 09:52] LABS: Troponin 5 2HR 9.41 ng/L (0-15); Troponin 5 2HR Delta -0.59 ABS# (0-10)
--- NOTE | 2023-04-13 10:16 | DCPLANNER ---
Sent 48- hour holter monitor to heart care on 04/13/23 at 1018
[2023-04-13 10:32] VITALS: BP 148/71; PULSE 64; RESP 20; O2SAT 99
[2023-04-13 10:33] VITALS: BP 148/71; PULSE 64; RESP 20; O2SAT 99
== END 2023-04-13 10:33 | disposition home or self-care (01) ==
PROVIDERS: Emergency Provider Family Medicine; PCP Nurse Practitioner Family
DX: I48.91 Unspecified atrial fibrillation (principal); I10 Essential (primary) hypertension; Z79.82 Long term (current) use of aspirin; I25.10 Atherosclerotic heart disease of native coronary artery without angina pectoris; J44.9 Chronic obstructive pulmonary disease, unspecified; Z95.1 Presence of aortocoronary bypass graft; Z87.891 Personal history of nicotine dependence
CPT/HCPCS: 36415; 71045; 80053; 84484; 85025; 93005; 96374; 99285; J0360

== ENCOUNTER → 2023-04-18 13:51 | Outpatient (BNVA) | payer MEDICARE, MEDICAID, SELFPAY | PROVIDERS: PCP Nurse Practitioner Family; Visit Provider Nurse Practitioner Family | DX: I48.91 Unspecified atrial fibrillation (principal); I25.10 Atherosclerotic heart disease of native coronary artery without angina pectoris; Z95.1 Presence of aortocoronary bypass graft; I10 Essential (primary) hypertension; Z87.891 Personal history of nicotine dependence | CPT/HCPCS: 99214 ==

== ENCOUNTER → 2023-05-03 07:49 | Outpatient (BNVA) | payer MEDICARE, MEDICAID, SELFPAY | PROVIDERS: PCP Nurse Practitioner Family; Referring Provider Family Medicine; Visit Provider Internal Medicine | DX: R00.1 Bradycardia, unspecified (principal); I48.91 Unspecified atrial fibrillation | CPT/HCPCS: 93225 ==

== ENCOUNTER 2023-05-31 08:46 | Outpatient (CLI) | payer MEDICARE, MEDICAID, SELFPAY ==
--- NOTE | 2023-05-31 | ECG_ITS ---
[facility] Test Date: 2023-05-31 Pat Name: Marshall Fountain Department: Room: Gender: Male Brand Ambassador Promotional Model: : 1960 Requested By: Kavitha Gomez Order Number: [id number] Aponte MD: Irasema Delatorre M.D. Interpretive Statements NAME OF STUDY: LEXISCAN SESTAMIBI STRESS TEST INDICATION: [Chest Pain; Shortness of Breath; Fatigue] PROCEDURE: At the baseline, the blood pressure was 125/78 mm Hg with a heart rate of 53 bpm. The electrocardiogram showed sinus bradycardia. Normal axis. Normal ST and T's. ??? The Lexiscan was infused over a period of 20 seconds. A total of 0.4 milligrams of Lexiscan was infused. The stress phase was continued for a total of 5 minutes. Heart rate at the end of the stress phase was 65 bpm with a blood pressure of 131/69 mm Hg. The EKG at the peak infusion revealed no significant ST-T wave changes.. ??? Sestamibi was injected 20 seconds after the Lexiscan infusion. ??? Blood pressure at the end of the recovery phase was 131/69 mm Hg with a heart rate of 66 beats per minute. ??? CONCLUSION: 1. Normal EKG response to LexiScan infusion. 2. No LexiScan induced chest pain or cardiac arrhythmia. 3. Normal blood pressure and heart rate response. 4. Sestamibi/sestamibi perfusion scan pending; see separate report. Electronically Signed On 06-05-2023 7:21:31 EXHIBITS MANAGER by Irsaema Delatorre M.D. [id number]
[2023-05-31 09:04] VITALS: BMI 29.7
--- NOTE | 2023-05-31 09:12 | NMCV_ITS ---
NM casey perf SPECT r/s* [id number] Marshall Fountain Age: 63 Gender: M : 1960 Exam Date: 05/31/2023 10:27 Ordering Phys: Kavitha Gomez Technologist: KELLY Michel Exam Location: [facility] Indications: ATHEROSCLEROTIC HEART DISEASE STRESS TEST Please see separate stress test report in [facility] for full findings IMAGE PROTOCOL Rest/Stress 1 Lexiscan Day Radiopharmaceutical Dose (mCi) Administration Site Administered by Rest: Tc-99m 10.7 IV KELLY Bustos Sestamibi Stress:Tc-99m 32.5 IV KELLY Michel Sestamicarline Rest: 31-May-2023 60 Discovery 630 Stress: 31-May-2023 30 Discovery 630 0.4mg Lexiscan. Images obtained in supine and prone position. SPECT RESULTS Technical Quality: Excellent Raw Data Analysis: Normal Image Corrections: No attenuation or motion correction applied Summed Stress Score: 4 Summed Rest Score: 3 Summed Difference Score: 1 PERFUSION FINDINGS There is medium sized, partially reversible perfusion defect noted in the inferolateral wall. This is consistent with medium sized prior infarct with minimal nadine-infarct ischemia in left circumflex artery territory. FUNCTIONAL RESULTS (calculated via Gated SPECT) Stress Image LV EF (%): 70 Stress EDV (mL):92 TID: 0.94 Stress ESV (mL):28 FUNCTIONAL FINDINGS: There is normal left ventricular systolic function. IMPRESSIONS 1. Medium sized prior infarct with minimal nadine-infarct ischemia seen in the left circumflex artery territory. 2. LV systolic function is normal Shahid Camejo MD (Electronically Signed) Final Date: 31 May 2023 12:34 S
--- NOTE | 2023-05-31 09:21 | SUR.PREOP ---
PRE STESS NOTE Patient states he's recently just gotten over covid-19 and is extremely short of breath. States that he called [facility] yesterday and explained all of this to the nursing staff that he is unable to do a treadmill. He was told that both lexiscan and exercise was approved through insurance and he could do a chemical stress if he felt he was unable to complete the treadmil. Today he does not feel like he can complete the physical component and is requesting to do a chemical stress. Orders checked to see if this is infact okay. The Ambulatory order in ous system from 04/18/23 does in fact say we can change the stress modality to lexiscan if needed. Changed at the patient's request. He is adequately prepped for stress lexiscan today.
[2023-05-31] MEDS: regadenoson 0.4 Mg/5 ml Syringe IVP (11:09)
[2023-05-31 11:56] VITALS: BP 134/66; PULSE 69
== END 2023-05-31 08:47 | disposition home or self-care (01) ==
LOC: CDL 08:47
PROVIDERS: PCP Nurse Practitioner Family; Visit Provider Nurse Practitioner Family
DX: R07.9 Chest pain, unspecified (principal); R06.02 Shortness of breath; R53.83 Other fatigue; I25.10 Atherosclerotic heart disease of native coronary artery without angina pectoris; I25.2 Old myocardial infarction
CPT/HCPCS: 36415; 78452; 93017; 96374; A9500; J2785

== ENCOUNTER → 2023-06-07 14:30 | Outpatient (BNVA) | payer MEDICARE, MEDICAID, SELFPAY | PROVIDERS: PCP Family Medicine; Visit Provider Internal Medicine | DX: I25.10 Atherosclerotic heart disease of native coronary artery without angina pectoris (principal); I48.91 Unspecified atrial fibrillation; I10 Essential (primary) hypertension; Z87.891 Personal history of nicotine dependence | CPT/HCPCS: 99214 ==

== ENCOUNTER → 2023-11-21 09:08 | Outpatient (BNVA) | payer MEDICARE, MEDICAID, SELFPAY | PROVIDERS: PCP Family Medicine; Visit Provider Nurse Practitioner Family | DX: I25.10 Atherosclerotic heart disease of native coronary artery without angina pectoris (principal); Z95.1 Presence of aortocoronary bypass graft; Z87.891 Personal history of nicotine dependence; I10 Essential (primary) hypertension; I48.0 Paroxysmal atrial fibrillation; I73.9 Peripheral vascular disease, unspecified | CPT/HCPCS: 99214 ==

== ENCOUNTER 2023-11-24 12:50 | Outpatient (CLI) | payer MEDICARE, MEDICAID, SELFPAY ==
--- NOTE | 2023-11-24 13:30 | USCV_ITS ---
Marshall Fountain Age: 63 Gender: M : 1960 Exam Date: 11/24/2023 14:16 Ordering Phys: Kavitha Gomez Technologist: DAVIS [place]am [place] [facility] [place] Indication: cad BP: 130 / 86 HR: 51 Rhythm: Sinus Technical Quality: Adequate MEASUREMENTS (Male / Female) Normal Values 2D ECHO LVOT Diameter 2.3 cm LV Ejection Fraction MOD 2C 50.9 % LV Ejection Fraction 2C AL 51.2 % LA Diameter 3.7 cm RA Systolic Volume 4C AL 69.9 ml RA Systolic Volume 4C MOD 61.9 ml LA Sys Volume AL 57.5 cm cubed LA Sys Volume Index AL 25.3 cm cubed/m squared Aorta at Sinotubular Diameter 2.2 cm IVC Diameter 1.8 cm M-MODE LA Ao Ratio MM 1.3 AV Cusp Separation MM 2.3 cm DOPPLER AV Peak Velocity 162.0 cm/s LVOT Peak Velocity 155.0 cm/s AV Area Cont Eq vti 4.7 cm squared AV Area Cont Eq pk 3.9 cm squared MV Peak Velocity 98.0 cm/s MV Area PHT 2.9 cm squared Mitral E to A Ratio 1.0 TR Peak Velocity 146.0 cm/s TR Peak Gradient 8.5 mmHg TV Peak E Velocity 95.0 cm/s Right Atrial Pressure 3.0 mmHg Pulmonary Artery Systolic Pressu 11.5 mmHg PV Peak Velocity 149.0 cm/s FINDINGS Left Ventricle Normal left ventricular size and systolic function, EF 55%, visual.. No regional wall motion abnormalities. Grade II/IV diastolic dysfunction, moderately elevated filling pressures. Right Ventricle The right ventricle is normal in size and function. Right Atrium The right atrium is normal in size. Left Atrium Mildly increased left atrial size. Mitral Valve No gross abnormalities noted Aortic Valve Thickened aortic valve. Tricuspid Valve No gross abnormalities noted Pulmonic Valve Trace pulmonary valve regurgitation. Pericardium Normal pericardium without effusion. Aorta Normal ascending aorta dimension. IVC Normal inferior vena cava. CONCLUSIONS Normal left ventricular size and systolic function, EF 55%, visual.. No regional wall motion abnormalities. Type II diastolic dysfunction. Mildly increased left atrial size. Thickened aortic valve. Trace pulmonary valve regurgitation. There is no pericardial effusion. There are no intracardiac masses. Compared to the study from 02/26/2020, there may not be a significant change. Dr Tad Bustos MD [facility] (Electronically Signed) Final Date: 24 November 2023 21:34 S
--- NOTE | 2023-11-24 14:15 | USCV_ITS ---
Marshall Fountain Age: 63 Gender: M : 1960 Exam Date: 11/24/2023 13:38 Ordering Phys: Kavitha Gomez Technologist: JEFF Exam Location: [facility] [place] Indication: Claudication Risk Factors: Previous Vascular Surgery: RIGHT LEFT BP: 127.0 / 61.00 BP: 124.0/ 66.00 0 0 Waveform Velocity (cm/s) Velocity (cm/s) Waveform Triphasic 89.4 Iliac Prox 100.7 Triphasic Triphasic 100.0 Iliac Mid 107.8 Triphasic Triphasic Iliac Distal Triphasic 104.7 118.2 Triphasic 121.0 AUDIO VISUAL ARTS DIRECTOR 142.0 Triphasic Triphasic 154.0 SFA Prox 127.0 Triphasic Triphasic 96.0 SFA Mid 90.0 Triphasic Triphasic 137.0 SFA Dist 125.0 Triphasic Triphasic 87.0 POP 71.0 Triphasic Triphasic 84.0 REEL ASSEMBLER 103.0 Triphasic Triphasic 75.0 DPA 70.0 Triphasic 1.4 JUNE 1.4 FINDINGS Resting JUNE 1.4 on the right and 1.4 on the left Mild to moderate heterogenous plaques in the femoral arteries bilaterally Normal arterial Doppler waveforms CONCLUSIONS 1. Normal resting ABIs bilaterally suggesting no significant arterial obstruction 2. Mild to moderate plaques in the superficial femoral artery bilaterally Dr Tad Bustos MD [facility] (Electronically Signed) Final Date: 24 November 2023 16:11 S
== END 2023-11-24 12:51 | disposition home or self-care (01) ==
LOC: RAD 12:50
PROVIDERS: PCP Family Medicine; Visit Provider Nurse Practitioner Family
DX: Z95.1 Presence of aortocoronary bypass graft (principal); Z87.891 Personal history of nicotine dependence; I10 Essential (primary) hypertension; I25.10 Atherosclerotic heart disease of native coronary artery without angina pectoris; I70.203 Unspecified atherosclerosis of native arteries of extremities, bilateral legs
CPT/HCPCS: 93306; 93925

== ENCOUNTER → 2024-03-21 12:11 | Outpatient (BNVA) | payer MEDICARE, MEDICAID, SELFPAY | PROVIDERS: PCP Family Medicine; Visit Provider Internal Medicine | DX: I25.10 Atherosclerotic heart disease of native coronary artery without angina pectoris (principal); I48.0 Paroxysmal atrial fibrillation; I10 Essential (primary) hypertension; Z87.891 Personal history of nicotine dependence; Z95.1 Presence of aortocoronary bypass graft | CPT/HCPCS: 99213 ==

== ENCOUNTER 2024-03-22 11:38 | Observation (INO) | payer MEDICARE, MEDICAID, SELFPAY ==
[2024-03-22] VITALS (15 sets, daily range): BP systolic 84–163; BP diastolic 63–91; PULSE 51–61; RESP 14–98; TEMP 36.5–36.7; O2SAT 94–99; BMI 29.0
--- NOTE | 2024-03-22 11:38 | XR_ITS ---
WS: [id number] Exam: XR chest 1V portable [id number] Date/Time of Exam: 03/22/2024 11:40 AM Reason For Exam: Chest pain Comparison 04/13/2023. Lungs are fully inflated and clear. Heart size is normal. The mediastinum is normal in contour. Signs of previous cardiac surgery with median sternotomy. No pleural effusions. Unremarkable bony structur es. XR/XR chest 1V portable [id number] IMPRESSION: 1. No acute cardiopulmonary finding.
--- NOTE | 2024-03-22 11:39 | ECG_ITS ---
[facility] Test Date: 2024-03-22 Pat Name: Marshall Fountain Department: Room: Gender: Male Classifications Officer Cc/Cm: : 1960 Requested By: Romel Shane Order Number: [id number] Fay MD: Tad Bustos M.D. Measurements Intervals Gary Rate: 58 P: 52 NV: 211 QRS: -5 QRSD: 104 T: 47 QT: 407 QTc: 401 Interpretive Statements SINUS BRADYCARDIA WITH FIRST DEGREE AV BLOCK Compared to ECG 04/13/2023 08:22:31 First degree AV block now present Electronically Signed On 03-23-2024 20:54:46 CDT by Tad Bustos M.D. [id number]
--- NOTE | 2024-03-22 11:58 | ED_ITS ---
HPI - Chest Pain 2 General: Chief Complaint: Chest Pain Stated Complaint: cp Time Seen by Provider: 03/22/24 11:38 History of Present Illness: 64-year-old male presents to the emergen cy room from the clinic. Patient is known history of coronary artery disease he got numb swelling was going let his dog out began to have pain in his back between his shoulder blades that radiated into his arms and a bit into his neck. No particularly short of breath with shortness of breath with it. He took 1 nitro and it resolved after about 5 minutes. Has been pain-free since that time no nausea or vomiting. He has not had any other episodes of chest or arm pain or back pain in the past but he has been generally feeling tired. He is a known history of coronary disease and approximately 7 to 8 years ago had a bypass. Since that time he has had an echocardiogram but he does not recall having a stress test at any time. Reviewing patient's chart I did find a stress that was in May 2023 showed area of old ischemia consistent with his known history. Associated symptoms: Deny abdominal pain, dyspnea or fever(s) Related Data Home Medications Medication Instructions Recorded Confirmed aspirin 81 mg tablet,delayed 81 mg PO DAILY 07/11/19 03/22/24 release (Adult Low Dose Aspirin) brinzolamide 1 % eye 1 drop ophthalmic (eye) TID 07/11/19 03/22/24 drops,suspension (Azopt) esomeprazole magnesium 40 mg 40 mg PO DAILY 07/11/19 03/22/24 capsule,delayed release latanoprost 0.005 % eye drops 1 drop ophthalmic (eye) BEDTIME 07/11/19 03/22/24 albuterol sulfate 90 mcg/actuation 2 puff inhalation Q6H PRN 02/25/20 03/22/24 aerosol inhaler Shortness Of Breath acetaminophen 325 mg capsule 325 mg PO QID PRN Pain 02/09/21 03/22/24 albuterol sulfate 2.5 mg/3 mL 2.5 mg inhalation Q6H PRN 04/13/23 03/22/24 (0.083 %) solution for nebulization Shortness Of Breath losartan 50 mg tablet 50 mg PO DAILY 04/18/23 03/22/24 Previous Rx's Medication Instructions Recorded nitroglycerin 0.4 mg sublingual 0.4 mg sublingual Q5M PRN chest 11/23/22 tablet (Nitrostat) pain #25 tabs isosorbide mononitrate 30 mg 30 mg PO BID #180 tabs 04/04/23 tablet,extended release 24 hr dabigatran etexilate 150 mg capsule 150 mg PO BID #180 caps 09/05/23 Allergies Allergy/AdvReac Type Severity Reaction Status Date / Time bromfenac [From Duract] Allergy Mild ukn Verified 03/22/24 11:01 fluoxetine Allergy Mild ukn Verified 03/22/24 11:01 fluticasone [From Flonase] Allergy Mild ukn Verified 03/22/24 11:01 nabumetone Allergy Mild ukn Verified 03/22/24 11:01 atorvastatin [From Lipitor] Allergy Unknown Unknown Verified 03/22/24 11:01 celecoxib [From Celebrex] Allergy Unknown Unknown Verified 03/22/24 11:01 hydrocodone Allergy Unknown Unknown Verified 03/22/24 11:01 hydroxychloroquine Allergy Unknown Unknown Verified 03/22/24 11:01 oxaprozin Allergy Unknown Unknown Verified 03/22/24 11:01 pseudoephedrine Allergy Unknown Unknown Verified 03/22/24 11:01 [From Sudafed] rosuvastatin [From Crestor] Allergy Unknown Unknown Verified 03/22/24 11:01 sertraline [From Zoloft] Allergy Unknown Unknown Verified 03/22/24 11:01 sotalol Allergy Unknown Unknown Verified 03/22/24 11:01 Hkbhomc-EWE-TdB Reductase Allergy Unknown Unknown Verified 03/22/24 11:01 Inhibitor [Sjjeyaq-Tod-Xko Reductase Inhibitor] dexamethasone AdvReac Severe breathing Verified 03/22/24 11:01 issues prednisone AdvReac Mild blood Verified 03/22/24 11:01 pressure increase levofloxacin [From Levaquin] AdvReac ADR-Diarrhe Verified 03/22/24 11:01 a Review of Systems 2 Const: Denies: fever(s) or chills Card: Reports: chest pain Resp: Denies: dyspnea GI: Denies: abdominal pain : Denies: dysuria, urinary frequency or urinary urgency Musc: Denies: neck pain or back pain Skin/Breast: Denies: rash PFSH ED 2 PFSH: Medical History Chest pain Lower respiratory infection COPD (chronic obstructive pulmonary disease) Essential hypertension CAD (coronary artery disease) Atrial fibrillation Anticoagulated with Pradaxa Surgical History S/P lens implant S/P nasal surgery S/P CABG x 2 Family History Mother Hypertension Stroke Diabetes Myocardial infarction Chronic kidney disease (CKD) Father Hypertension Sister Hypertension Stroke Social History Smoking and tobacco/nicotine status: former use of tobacco/nicotine Quit status (tobacco/nicotine): has quit using Year quit tobacco: 2007 [id number] Second hand smoke exposure: No Alcohol intake: current Alcohol intake frequency: holidays/special occasions only Substance/Drug Use: never Lives independently: Yes Household members: none Housing: House Marital status: / Marital status details: x 6 yrs service: No Current occupational status: disabled Pets and animals: No Do you think of yourself as: Straight/Heterosexual Current gender identity: Male Physical Exam 2 Const: COMMON NORMALS: no acute distress GENERAL APPEARANCE: cooperative and comfortable ORIENTATION/CONSCIOUSNESS: Yes awake, Yes oriented to person, Yes oriented to place and Yes oriented to time HENMT: COMMON NORMALS: normocephalic, atraumatic and hearing grossly normal bilaterally HEAD & SCALP: normocephalic and atraumatic Resp: COMMON NORMALS: normal respiratory effort, No retractions, No use of accessory muscles and clear to auscultation bilaterally AUSCULTATION: clear to auscultation bilaterally Cardio: COMMON NORMALS: regular rate, regular rhythm and No murmurs present (Cardio) RATE: regular rate RHYTHM: regular rhythm GI: COMMON NORMALS: Soft to palpation and No hepatosplenomegaly present A USCULTATION: Yes normoactive bowel sounds PALPATION: Yes Soft to palpation, No Tenderness to palpation present (GI), No Guarding due to palpation present (GI) and Yes No hepatosplenomegaly present Extremity: COMMON NORMALS: normal to inspection, capillary refill normal, no clubbing, cyanosis or edema, no calf tenderness and no pedal edema Neuro: SENSORIUM/ORIENTATION: Yes oriented to person, Yes oriented to place and Yes oriented to time Skin: COMMON NORMALS: no rashes or lesions noted GENERAL SKIN EXAM: no rashes or lesions noted Course 2 Vital Signs: Vital signs: Vital Signs Temperature 97.7 F 03/22/24 15:25 Pulse Rate 56 L 03/22/24 16:12 Respiratory Rate 16 03/22/24 16:12 Blood Pressure 129/66 03/22/24 16:00 Pulse Oximetry 97 03/22/24 16:12 Oxygen Delivery Me thod Room Air 03/22/24 16:12 MDM - Chest Pain Medical Decision Making Patient has a history of coronary disease had a stress test within the last year that did show some infarct ischemia but is otherwise unremarkable cardiology did not feel anything else need to be done at that point. He is now having episode of chest pain relieved by nitro. His troponins so far trended normal has not had any acute EKG changes. Discussed with cardiology will place on observation complete serial troponins have cardiology see the patient to advise on further cardiac evaluation Medical Records I reviewed the patient's medical records. Lab Data I reviewed the patient's lab results. 03/22/24 10:40 03/22/24 10:40 Radiology Impressions Chest X-Ray 03/22/24 11:38 IMPRESSION: 1. No acute cardiopulmonary finding. Laboratory Results WBC 5.96 10^3/uL (3.29-11.43) 03/22/24 10:40 RBC 4.73 10^6/uL (3.85-5.65) 03/22/24 10:40 Hgb 14.60 g/dL (11.27-16.99) 03/22/24 10:40 Hct 44.5 % (37-53) 03/22/24 10:40 MCV 94.1 fl (82-101) 03/22/24 10:40 MCH 30.9 pg (27-33) 03/22/24 10:40 MCHC 32.8 g/dL (30-55) 03/22/24 10:40 RDW 13.0 % (12.1-15.1) 03/22/24 10:40 Plt Count 244 10^3/cmm (157-399) 03/22/24 10:40 MPV 12.2 fL (7.4-10.4) H 03/22/24 10:40 Neut % (Auto) 49.6 % 03/22/24 10:40 Lymph % (Auto) 34.9 % 03/22/24 10:40 [place] % (Auto) 11.6 % 03/22/24 10:40 Eos % (Auto) 2.9 % 03/22/24 10:40 Baso % (Auto) 0.5 % 03/22/24 10:40 Neut # (Auto) 2.96 10^3/uL (1.8-7.7) 03/22/24 10:40 Lymph # (Auto) 2.1 10^3/uL (0.8-4.8) 03/22/24 10:40 [place] # (Auto) 0.7 10^3/uL (0.2-0.9) 03/22/24 10:40 Eos # (Auto) 0.2 10^3/uL (0.0-0.8) 03/22/24 10:40 Baso # (Auto) 0.0 10^3/uL (0.0-0.1) 03/22/24 10:40 Nucleated RBC % (auto) 0 % 03/22/24 10:40 Nucleated RBCs # 0.0 /100WBC 03/22/24 10:40 Sodium 139 mmol/L (136-145) 03/22/24 10:40 Potassium 4.3 mmol/L (3.5-5.1) 03/22/24 10:40 Chloride 103 mmol/L (98-107) 03/22/24 10:40 Carbon Dioxide 24 mmol/L (22-29) 03/22/24 10:40 Anion Gap 16.3 (5-19) 03/22/24 10:40 BUN 10 mg/dL (8-23) 03/22/24 10:40 Creatinine 0.8 mg/dL (0.7-1.2) 03/22/24 10:40 GFR Calculation 97.0 mL/min (90-130) 03/22/24 10:40 Glucose 119 mg/dL (65-115) H 03/22/24 10:40 Estimat Average Glucose 146 03/22/24 10:40 Hemoglobin A1c 6.7 % (4.0-6.0) H 03/22/24 10:40 Calculated Osmolality 288 mOsm/kg (285-295) 03/22/24 10:40 Calcium 9.2 mg/dL (8.5-10.5) 03/22/24 10:40 Total Bilirubin 0.3 mg/dL (0.15-1.2) 03/22/24 10:40 AST 33 U/L (0-40) 03/22/24 10:40 ALT 54 U/L (0-41) H 03/22/24 10:40 Alkaline Phosphatase 85 U/L (40-130) 03/22/24 10:40 Troponin T Baseline 11 ng/L (0-15) 03/22/24 10:40 Troponin T 120 Minute 9.57 ng/L (0-15) 03/22/24 12:35 Delta Troponin T -1.43 ABS# (0-10) L 03/22/24 12:35 Total Protein 6.9 g/dL (6.6-8.7) 03/22/24 10:40 Albumin 4.6 g/dL (3.5-5.2) 03/22/24 10:40 Globulin 2.3 g/dL (1.3-4.6) 03/22/24 10:40 Triglycerides 153 mg/dL (0-150) H 03/22/24 10:40 Cholesterol 200 mg/dL (0-200) 03/22/24 10:40 LDL Cholesterol, Calc 140 mg/dL (50-129) H 03/22/24 10:40 HDL Cholesterol 29 mg/dL (60-100) L 03/22/24 10:40 LDL/HDL Ratio 4.83 RATIO (0.00-3.22) H 03/22/24 10:40 Cholesterol/HDL Ratio 6.90 mg/dL (1.0-5.00) H 03/22/24 10:40 TSH 1.09 uIU/mL (0.27-4.20) 03/22/24 10:40 All radiology interpretation(s) finalized by discharge Discharge Plan Discharge Patient Disposition: Admitted As Inpatient Admit Provider: Marcell Kasper Clinical Impression: Chest pain, S/P CABG x 2, CAD (coronary artery disease) Condition: Stable Coding Level of Care Code ED Data Communications Technician for Francisco Javierg Lynne
[2024-03-22 12:16] LABS: Troponin(5th) Baseline 11 ng/L (0-15)
[2024-03-22 12:50] LABS: Basophils % 0.5 %; Eosinophils # 0.2 10^3/uL (0.0-0.8); Eosinophils % 2.9 %; Hematocrit 44.5 % (37-53); Lymphocytes # 2.1 10^3/uL (0.8-4.8); Lymphocytes % 34.9 %; Mean Corpuscular HGB Conc 32.8 g/dL (30-55); Mean Corpuscular Hemoglobin 30.9 pg (27-33); Mean Corpuscular Volume 94.1 fl (82-101); Mean Platelet Volume 12.2 fL (7.4-10.4); Monocytes # 0.7 10^3/uL (0.2-0.9); Monocytes % 11.6 %; Neutrophils # 2.96 10^3/uL (1.8-7.7); Neutrophils % 49.6 %; Nucleated Red Blood Cells % 0 %; Platelet Count 244 10^3/cmm (157-399); Red Blood Count 4.73 10^6/uL (3.85-5.65); White Blood Count 5.96 10^3/uL (3.29-11.43)
[2024-03-22 12:59] LABS: Troponin 5 2HR 9.57 ng/L (0-15)
[2024-03-22 13:00] LABS: Troponin 5 2HR Delta -1.43 ABS# (0-10)
[2024-03-22 13:05] LABS: Alanine Aminotransferase 54 U/L (0-41); Albumin Level 4.6 g/dL (3.5-5.2); Alkaline Phosphatase 85 U/L (40-130); Anion Gap 16.3 (5-19); Aspartate Amino Transferase 33 U/L (0-40); Blood Urea Nitrogen 10 mg/dL (8-23); Calcium 9.2 mg/dL (8.5-10.5); Carbon Dioxide 24 mmol/L (22-29); Chloride 103 mmol/L (98-107); Globulin 2.3 g/dL (1.3-4.6); Glucose 119 mg/dL (65-115); Osmolality Calculated 288 mOsm/kg (285-295); Potassium 4.3 mmol/L (3.5-5.1); Sodium 139 mmol/L (136-145); Total Bilirubin 0.3 mg/dL (0.15-1.2); Total Protein 6.9 g/dL (6.6-8.7)
--- NOTE | 2024-03-22 13:38 | ECG_ITS ---
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 Measurements Intervals [place] Rate: 56 P: 48 [place]: 209 QRS: -1 QRSD: 106 T: 43 QT: 421 QTc: 407 Interpretive Statements SINUS BRADYCARDIA Compared to ECG 03/22/2024 11:39:47 First degree AV block no longer present Electronically Signed On 03-23-2024 21:14:29 CDT by Tad Bustos M.D. [id number]
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
--- NOTE | 2024-03-22 15:29 | USCV_ITS ---
Marshall Fountain Age: 64 Gender: M : 1960 Exam Date: 03/22/2024 18:08 Ordering Phys: Marcell Kasper MD Technologist: Lopez Barreto [place] [facility] [place]ication: chest pain BP: 129 / 66 HR: 55 Rhythm: Sinus Technical Quality: Adequate MEASUREMENTS (Male / Female) Normal Values 2D ECHO LV Diastolic Diameter PLAX 4.2 cm 4.2 - 5.9 / 3.9 - 5.3 cm IVS Diastolic Thickness 1.1 cm 0.6 - 1.0 / 0.6 - 0.9 cm IVS Systolic Thickness 1.5 cm LVPW Diastolic Thickness 1.6 cm 0.6 - 1.0 / 0.6 - 0.9 cm LVPW Systolic Thickness 2.0 cm LVOT Diameter 2.0 cm LV Ejection Fraction 2D Teich 60.9 % LV Ejection Fraction MOD 4C 75.4 % LV Ejection Fraction MOD 2C 69.6 % LV Ejection Fraction 2C AL 70.7 % LA Diameter 3.8 cm RA Systolic Volume 4C AL 63.9 ml RA Systolic Volume 4C MOD 63.1 ml LA Sys Volume AL 83.9 cm cubed LA Sys Volume Index AL 37.4 cm cubed/m squared Aorta at Sinotubular Diameter 2.2 cm IVC Diameter 1.6 cm M-MODE LA Ao Ratio MM 1.7 AV Cusp Separation MM 1.8 cm DOPPLER AV Peak Velocity 171.0 cm/s LVOT Peak Velocity 115.0 cm/s AV Area Cont Eq vti 2.2 cm squared AV Area Cont Eq pk 2.2 cm squared MV Peak Velocity 122.0 cm/s MV Area PHT 3.3 cm squared Mitral E to A Ratio 0.9 TV Peak Velocity 274.0 cm/s TR Peak Velocity 281.0 cm/s TR Peak Gradient 31.6 mmHg TR Mean Velocity 231.0 cm/s TR Mean Gradient 22.3 mmHg TR Velocity Time Integral 72.7 cm PV Peak Velocity 181.0 cm/s RV Ejection Time 0.3 s FINDINGS Left Ventricle Normal left ventricular size and systolic function, EF 70% . No regional wall motion abnormalities. Grade I/IV diastolic dysfunction (abnormal relaxation filling pattern), normal to mildly elevated filling pressures. Right Ventricle The right ventricle is normal in size and function. Right Atrium The right atrium is normal in size. Left Atrium Mildly increased left atrial size. Mitral Valve Mild mitral annular calcification. Trace mitral valve regurgitation. Aortic Valve Thickened aortic valve. .Trace aortic valve regurgitation. Tricuspid Valve trace to 1+ tricuspid valve regurgitation. Pulmonic Valve Pulmonic valve not well visualized. Pericardium Normal pericardium without effusion. Aorta Normal ascending aorta dimension. IVC Inferior vena cava not visualized. CONCLUSIONS Normal left ventricular size and systolic function, EF 70% . No regional wall motion abnormalities. Grade I/IV diastolic dysfunction (abnormal relaxation filling pattern), normal to mildly elevated filling pressures. Mildly increased left atrial size. Mild mitral annular calcification. Trace mitral valve regurgitation. Thickened aortic valve. .Trace aortic valve regurgitation. Trace to 1+ tricuspid valve regurgitation. There are no intracardiac masses. There is no pericardial effusion. Compared to the study from 11/24/2023, there may not be significant change Dr Tad Bustos MD FAC (Electronically Signed) Final Date: 22 March 2024 21:52 S
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
[2024-03-22 16:04] LABS: Estmated Average Glucose 146; Hemoglobin A1C 6.7 % (4.0-6.0)
[2024-03-22 16:15] LABS: Cholesterol 200 mg/dL (0-200); HDL Cholesterol 29 mg/dL (60-100); LDL Cholesterol Calculated 140 mg/dL (50-129); LDL HDL Ratio 4.83 RATIO (0.00-3.22); Thyroid Stimulating Hormone 1.09 uIU/mL (0.27-4.20); Triglycerides 153 mg/dL (0-150)
[2024-03-22 17:18] LABS: Troponin 5 6HR 9.67 ng/L (0-15)
[2024-03-22 17:27] LABS: Troponin 5 6HR Delta -1.33 ng/L (0-12)
[2024-03-22] MEDS: pantoprazole 40 mg SDV IVP (17:32)
--- NOTE | 2024-03-22 17:34 | PC.NURSE ---
CT scan held until tomorrow. Patient report severe anxiety/ claustrophobia when having a CT or MRI done, even though the end is open. Nurse reported this to Dr. Kasper who gave the order to hold off on CT for now and wait until cardiology consults on patient. Nurse spoke with Nithin in CT who redated the CT to tomorrow. (03/23).
--- NOTE | 2024-03-22 17:38 | ECG_ITS ---
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 Measurements Intervals [place] Rate: 57 P: 53 [place]: 215 QRS: -12 QRSD: 114 T: 33 QT: 413 QTc: 404 Interpretive Statements SINUS BRADYCARDIA WITH FIRST DEGREE AV BLOCK MODERATE INTRAVENTRICULAR CONDUCTION DELAY [110+ ms QRS DURATION] Compared to ECG 03/22/2024 13:12:31 First degree AV block now present Intraventricular conduction delay now present Electronically Signed On 03-23-2024 21:16:40 CDT by Tad Bustos M.D. [id number]
--- NOTE | 2024-03-22 17:53 | P.CONIM_ITS ---
Providers/Reason For Consult 2 Consulting Physician/Specialty*: AMBROSIO Bustos MD/cardiology Reason for Consult*: Patient with history of coronary disease and coronary bypass surgery, presenting with chest pain. Requesting Physician: Dr. Kasper Attending Physician: Marcell Kasper MD Primary Care Provider: Vasu Sosa History of Present Illness History of Present Illness Marshall Fountain is a 64 year old male with a history of atherosclerotic heart disease, high blood pressure, dyslipidemia and intermittent atrial fibrillation, he is admitted to the hospital through the emergency room where he presented with complaints of chest pain. Apparently this patient has been in his baseline state of health up until 9:00 this morning when he had an episode of pain between the shoulder blades radiated to the left shoulder and also to the left arm. He was taking his dog to the outside at the time of his pain. He had some associated shortness of breath. He took 1 sublingual nitroglycerin. The pain subsided in 5 minutes or so. Has not had a recurrence of chest pain. This patient had a two-vessel coronary bypass surgery? In 2017 at the [facility]. Details of the surgery is not known. From the way he described the surgery most likely he had a MALDONADO to the LAD with venous graft to one of the other arteries. Apparently he has been doing okay since the surgery. He had a Myocardial perfusion imaging in May of last year. He was found to have a moderate area of fixed defect with some small areas of reversible defect in the distribution of the left circumflex artery at that time. Based on the findings, it was decided to treat him medically. According to the patient, he has been doing okay with no significant chest pain. Most recently, he has been experiencing some dyspnea on exertion and easy fatigability. No orthopnea or PND. No fever, chills or cough. No other specific complaints. He has been taking Pradaxa for oral anticoagulation. The last dose was this morning. Review of Systems 2 Narrative: CONSTITUTIONAL: No fever or chills. EYES: No blurring of vision or other visual disturbances lately. ENT: No hoarseness of voice, auditory disturbances or sore throat. CARDIOVASCULAR: As mentioned above. RESPIRATORY: No significant cough. GASTROINTESTINAL: No hematemesis or melena. GENITOURINARY: No dysuria or hematuria. INTEGUMENTARY: No skin rashes or history of skin cancer. NEURO: No transient ischemic attacks or amaurosis. PSYCHIATRIC: No history of psychosis or major depression. HEMATOLOGIC: Patient is on long-term oral anticoagulation for the atrial fibrillation. ENDOCRINE: No history of polyuria or polydipsia. MUSCULOSKELETAL: No recent joint pain or swelling. ALLERGY/IMMUNOLOGY: As mentioned above. Medications/Allergies Home Medications Medication Instructions Recorded Confirmed Last Taken Type aspirin 81 mg tablet,delayed 81 mg PO DAILY 07/11/19 03/22/24 03/21/24 History release (Adult Low Dose Aspirin) brinzolamide 1 % eye 1 drop ophthalmic (eye) TID 07/11/19 03/22/24 03/22/24 History drops,suspension (Azopt) esomeprazole magnesium 40 mg 40 mg PO DAILY 07/11/19 03/22/24 03/22/24 History capsule,delayed release latanoprost 0.005 % eye drops 1 drop ophthalmic (eye) BEDTIME 07/11/19 03/22/24 03/22/24 History albuterol sulfate 90 mcg/actuation 2 puff inhalation Q6H PRN 02/25/20 03/22/24 03/21/24 History aerosol inhaler Shortness Of Breath acetaminophen 325 mg capsule 325 mg PO QID PRN Pain 02/09/21 03/22/24 Unknown History nitroglycerin 0.4 mg sublingual 0.4 mg sublingual Q5M PRN chest 05/11/22 03/22/24 Unknown Rx tablet (Nitrostat) pain #25 tabs isosorbide mononitrate 30 mg 30 mg PO BID #180 tabs 04/04/23 03/22/24 03/21/24 Rx tablet,extended release 24 hr albuterol sulfate 2.5 mg/3 mL 2.5 mg inhalation Q6H PRN 04/13/23 03/22/24 03/21/24 History (0.083 %) solution for nebulization Shortness Of Breath losartan 50 mg tablet 50 mg PO DAILY 04/18/23 03/22/24 03/21/24 History dabigatran etexilate 150 mg capsule 150 mg PO BID #180 caps 09/05/23 03/22/24 03/22/24 Rx Allergies Allergy/AdvReac Type Severity Reaction Status Date / Time bromfenac [From Duract] Allergy Mild ukn Verified 03/22/24 11:01 fluoxetine Allergy Mild ukn Verified 03/22/24 11:01 fluticasone [From Flonase] Allergy Mild ukn Verified 03/22/24 11:01 nabumetone Allergy Mild ukn Verified 03/22/24 11:01 atorvastatin [From Lipitor] Allergy Unknown Unknown Verified 03/22/24 11:01 celecoxib [From Celebrex] Allergy Unknown Unknown Verified 03/22/24 11:01 hydrocodone Allergy Unknown Unknown Verified 03/22/24 11:01 hydroxychloroquine Allergy Unknown Unknown Verified 03/22/24 11:01 oxaprozin Allergy Unknown Unknown Verified 03/22/24 11:01 pseudoephedrine Allergy Unknown Unknown Verified 03/22/24 11:01 [From Sudafed] rosuvastatin [From Crestor] Allergy Unknown Unknown Verified 03/22/24 11:01 sertraline [From Zoloft] Allergy Unknown Unknown Verified 03/22/24 11:01 sotalol Allergy Unknown Unknown Verified 03/22/24 11:01 Isnxnhz-TBL-WlN Reductase Allergy Unknown Unknown Verified 03/22/24 11:01 Inhibitor [Bzkfccb-Eto-Ott Reductase Inhibitor] dexamethasone AdvReac Severe breathing Verified 03/22/24 11:01 issues prednisone AdvReac Mild blood Verified 03/22/24 11:01 pressure increase levofloxacin [From Levaquin] AdvReac ADR-Diarrhe Verified 03/22/24 11:01 a Current Medications Generic Name Dose Route Start Last Admin Trade Name Freq PRN Reason Stop Dose Admin Pantoprazole Sodium 40 mg 03/22/24 15:30 03/22/24 17:32 Pantoprazole 40 Mg Sdv IVP 40 mg Q24H EUGENIO Administration PFSH Acute 2 PFSH: Medical History Chest pain Lower respiratory infection COPD (chronic obstructive pulmonary disease) Essential hypertension CAD (coronary artery disease) Atrial fibrillation Anticoagulated with Pradaxa Surgical History S/P lens implant S/P nasal surgery S/P CABG x 2 Family History Mother Hypertension Stroke Diabetes Myocardial infarction Chronic kidney disease (CKD) Father Hypertension Sister Hypertension Stroke Social History Smoking and tobacco/nicotine status: former use of tobacco/nicotine Quit status (tobacco/nicotine): has quit using Year quit tobacco: 2007 [id number] Second hand smoke exposure: No Alcohol intake: current Alcohol intake frequency: holidays/special occasions only Substance/Drug Use: never Lives independently: Yes Household members: none Housing: House Marital status: / Marital status details: x 6 yrs service: No Current occupational status: disabled Pets and animals: No Do you think of yourself as: Straight/Heterosexual Current gender identity: Male Vitals/I&O/Wt Last Vital Signs Temp 97.7 F 03/22/24 15:25 Pulse 56 L 03/22/24 16:12 Resp 16 03/22/24 16:12 BP 129/66 03/22/24 16:00 Pulse Ox 97 03/22/24 16:12 O2 Del Method Room Air 03/22/24 16:12 Weight last 48 hrs Weight 214 lb Physical Exam 2 Narrative: GENERAL: The patient is alert and oriented times three. Not in any acute distress. HEENT: No significant pallor, icterus or lymphadenopathy.Oral cavity: There are no mucous membrane lesions. NECK: Trachea appears to be central. No masses noted. No JVD or thyromegaly appreciated. RESPIRATORY: Chest is symmetrical. No intercostals muscle retraction or any accessory muscle activation. There is no chest wall tenderness. Breath sounds are heard bilaterally. No rales or rhonchi heard. No evidence of any consolidation. BREASTS: Deferred. HEART: The heart sounds are normal. No S3 or S4. Short systolic murmur in the left sternal border. No diastolic murmurs. No pericardial rub ABDOMEN: No vessel pulsations or distention. No tenderness. No organomegaly appreciated. Bowel sounds are normally heard. : Deferred. RECTAL: Deferred. LYMPHATIC: No lymphadenopathy noted in the neck. EXTREMITIES: No edema or cyanosis. No clubbing. MUSCULOSKELETAL: No acute joint deformities or swelling SKIN: There are no significant rashes or ecchymosis NEUROPSYCHIATRIC: The patient is alert and oriented x3. Appears to be in a good mood. No tremors or rigidity noted. Data 03/22/24 10:40 03/22/24 10:40 Other Labs: Laboratory Last Values WBC 5.96 10^3/uL (3.29-11.43) 03/22/24 10:40 RBC 4.73 10^6/uL (3.85-5.65) 03/22/24 10:40 Hgb 14.60 g/dL (11.27-16.99) 03/22/24 10:40 Hct 44.5 % (37-53) 03/22/24 10:40 MCV 94.1 fl (82-101) 03/22/24 10:40 MCH 30.9 pg (27-33) 03/22/24 10:40 MCHC 32.8 g/dL (30-55) 03/22/24 10:40 RDW 13.0 % (12.1-15.1) 03/22/24 10:40 Plt Count 244 10^3/cmm (157-399) 03/22/24 10:40 MPV 12.2 fL (7.4-10.4) H 03/22/24 10:40 Neut % (Auto) 49.6 % 03/22/24 10:40 Lymph % (Auto) 34.9 % 03/22/24 10:40 [place] % (Auto) 11.6 % 03/22/24 10:40 Eos % (Auto) 2.9 % 03/22/24 10:40 Baso % (Auto) 0.5 % 03/22/24 10:40 Neut # (Auto) 2.96 10^3/uL (1.8-7.7) 03/22/24 10:40 Lymph # (Auto) 2.1 10^3/uL (0.8-4.8) 03/22/24 10:40 [place] # (Auto) 0.7 10^3/uL (0.2-0.9) 03/22/24 10:40 Eos # (Auto) 0.2 10^3/uL (0.0-0.8) 03/22/24 10:40 Baso # (Auto) 0.0 10^3/uL (0.0-0.1) 03/22/24 10:40 Nucleated RBC % (auto) 0 % 03/22/24 10:40 Nucleated RBCs # 0.0 /100WBC 03/22/24 10:40 Sodium 139 mmol/L (136-145) 03/22/24 10:40 Potassium 4.3 mmol/L (3.5-5.1) 03/22/24 10:40 Chloride 103 mmol/L (98-107) 03/22/24 10:40 Carbon Dioxide 24 mmol/L (22-29) 03/22/24 10:40 Anion Gap 16.3 (5-19) 03/22/24 10:40 BUN 10 mg/dL (8-23) 03/22/24 10:40 Creatinine 0.8 mg/dL (0.7-1.2) 03/22/24 10:40 GFR Calculation 97.0 mL/min (90-130) 03/22/24 10:40 Glucose 119 mg/dL (65-115) H 03/22/24 10:40 Estimat Average Glucose 146 03/22/24 10:40 Hemoglobin A1c 6.7 % (4.0-6.0) H 03/22/24 10:40 Calculated Osmolality 288 mOsm/kg (285-295) 03/22/24 10:40 Calcium 9.2 mg/dL (8.5-10.5) 03/22/24 10:40 Total Bilirubin 0.3 mg/dL (0.15-1.2) 03/22/24 10:40 AST 33 U/L (0-40) 03/22/24 10:40 ALT 54 U/L (0-41) H 03/22/24 10:40 Alkaline Phosphatase 85 U/L (40-130) 03/22/24 10:40 Troponin T Baseline 11 ng/L (0-15) 03/22/24 10:40 Troponin T 120 Minute 9.57 ng/L (0-15) 03/22/24 12:35 Delta Troponin T -1.43 ABS# (0-10) L 03/22/24 12:35 Troponin T Hi Sens 6Hr 9.67 ng/L (0-15) 03/22/24 16:50 Troponin T Hi Sens 6Hr Delta -1.33 ng/L (0-12) L 03/22/24 16:50 Total Protein 6.9 g/dL (6.6-8.7) 03/22/24 10:40 Albumin 4.6 g/dL (3.5-5.2) 03/22/24 10:40 Globulin 2.3 g/dL (1.3-4.6) 03/22/24 10:40 Triglycerides 153 mg/dL (0-150) H 03/22/24 10:40 Cholesterol 200 mg/dL (0-200) 03/22/24 10:40 LDL Cholesterol, Calc 140 mg/dL (50-129) H 03/22/24 10:40 HDL Cholesterol 29 mg/dL (60-100) L 03/22/24 10:40 LDL/HDL Ratio 4.83 RATIO (0.00-3.22) H 03/22/24 10:40 Cholesterol/HDL Ratio 6.90 mg/dL (1.0-5.00) H 03/22/24 10:40 TSH 1.09 uIU/mL (0.27-4.20) 03/22/24 10:40 Other data: The EKG from today Normal sinus rhythm with normal ST Ts. Normal NE and QRS duration. Echocardiogram in November 2023 Normal left ventricular size and systolic function, EF 55%, visual.. No regional wall motion abnormalities. Type II diastolic dysfunction. Mildly increased left atrial size. Thickened aortic valve. Trace pulmonary valve regurgitation. There is no pericardial effusion. There are no intracardiac masses. Compared to the study from 02/26/2020, there may not be a significant change. Myocardial perfusion imaging May 2023 1. Medium sized prior infarct with minimal nadine-infarct ischemia seen in the left circumflex artery territory. 2. LV systolic function is normal A&P Assessment and plan (1) New-onset angina: The patient is a new onset of angina may suggest progression of disease in the [place] vessels versus occlusion of the graft vessels. Patient is currently asymptomatic. At this point, I may discontinue the Pradaxa and start him on subcu Lovenox. (2) Atherosclerotic heart disease of [place] coronary artery with other forms of angina pectoris: Patient had aggressive multivessel coronary bypass surgery at the [facility] in 2016. He had a Myocardial perfusion imaging in May of last year as mentioned above. At this point, with the new onset of angina with the recent onset of fatigue with the dyspnea exertion, it might be appropriate to go ahead with an angiogram to decide on further management. (3) Essential hypertension: Currently normotensive. May continue on the current medications. (4) Dyslipidemia: May continue on the current medications. (5) Intermittent atrial fibrillation: The Pradaxa may be held at this point. May start him on Lovenox. Possible cardiac catheterization after 48 hours. (6) COPD (chronic obstructive pulmonary disease): Clinically stable. Continue on the current management. Qualifiers: COPD type: unspecified COPD Qualified Code(s): J44.9 - Chronic obstructive pulmonary disease, unspecified Plan Based on the patient reviewing progress, further recommendations will be made. In view of the patient's clinical presentation, it may be appropriate to do an angiogram to reevaluate the coronary arteries as well as the graft vessels. He needs to be off the Pradaxa for 48 hours. We may start him on subcu Lovenox tomorrow. Based on the angiogram findings, further recommendations will be made. Thank you for the opportunity to evaluate this patient and make these recommendations Consult Attestations 2 Medical Necessity Statement: Patient requires continued hospital stay for close monitoring and further management Coding Level of Care Code 82907 Diagnoses New-onset angina I20.9 Atherosclerotic heart disease of [place] coronary artery with other forms of angina pectoris I25.118 Essential hypertension I10 Dyslipidemia E78.5 Intermittent atrial fibrillation I48.0 Chronic obstructive pulmonary disease, unspecified COPD type J44.9 COPD type: unspecified COPD
[2024-03-22] MEDS: isosorbide mononitrate ER 30 mg Tablet PO (18:04)
[2024-03-22] MEDS: enoxaparin 100 mg/mL Syringe 90 MG SUBCUT (19:11)
[2024-03-22] MEDS: latanoprost 0.005% Op Soln 2.5 mL Btl 1 DROP EYE-BOTH (23:28)
[2024-03-23] VITALS (11 sets, daily range): BP systolic 118–152; BP diastolic 71–87; PULSE 52–66; RESP 14–24; TEMP 36.5–37; O2SAT 94–98; BMI 29.8
[2024-03-23 04:43] LABS: Basophils % 0.5 %; Eosinophils # 0.2 10^3/uL (0.0-0.8); Eosinophils % 2.9 %; Hematocrit 42.7 % (37-53); Lymphocytes # 2.7 10^3/uL (0.8-4.8); Lymphocytes % 41.8 %; Mean Corpuscular HGB Conc 33.3 g/dL (30-55); Mean Corpuscular Hemoglobin 31.3 pg (27-33); Mean Corpuscular Volume 94.3 fl (82-101); Mean Platelet Volume 11.5 fL (7.4-10.4); Monocytes # 0.7 10^3/uL (0.2-0.9); Monocytes % 10.9 %; Neutrophils # 2.84 10^3/uL (1.8-7.7); Neutrophils % 43.7 %; Nucleated Red Blood Cells % 0 %; Platelet Count 221 10^3/cmm (157-399); Red Blood Count 4.53 10^6/uL (3.85-5.65); Red Cell Distribution Width 13.2 % (12.1-15.1)
[2024-03-23 05:02] LABS: Anion Gap 13.2 (5-19); Blood Urea Nitrogen 11 mg/dL (8-23); Carbon Dioxide 23 mmol/L (22-29); Chloride 106 mmol/L (98-107); Creatinine Clr Calc Pharmacy 112.6042; Glucose 132 mg/dL (65-115); Osmolality Calculated 287 mOsm/kg (285-295); Potassium 4.2 mmol/L (3.5-5.1); Sodium 138 mmol/L (136-145)
[2024-03-23] MEDS: enoxaparin 100 mg/mL Syringe 90 MG SUBCUT ×2 (06:25→18:37)
[2024-03-23] MEDS: aspirin 81 mg EC Tablet PO (09:06)
[2024-03-23] MEDS: losartan 50 mg Tablet PO (09:06)
[2024-03-23] MEDS: isosorbide mononitrate ER 30 mg Tablet PO ×2 (09:06→17:34)
--- NOTE | 2024-03-23 10:07 | PM.PN ---
Subjective Subjective: Patient is feeling okay. Has not had any recurrence of chest pain, since the hospital admission. Vitals are stable. Cardiac enzymes are negative for myocardial injury so far. Medications: Medication Review Details: Current Medications Acetaminophen (Acetaminophen 325 Mg Tablet) 650 mg PO Q6H PRN PRN Reason: Mild/Mod Pain Or Temp >/= 101 Albuterol Sulfate (Albuterol 2.5 Mg/3 Ml Neb) 2.5 mg INHALATION Q6H.RESP PRN PRN Reason: SHORTNESS OF BREATH Aspirin (Aspirin 81 Mg Ec Tablet) 81 mg PO DAILY [facility] Last Admin: 03/23/24 09:06 Dose: 81 mg Enoxaparin Sodium (Enoxaparin 100 Mg/Ml Syringe) 90 mg SUBCUT Q12H [facility] Last Admin: 03/23/24 06:25 Dose: 90 mg Isosorbide Mononitrate (Isosorbide Mononitrate Er 30 Mg Tablet) 30 mg PO BID [facility] Last Admin: 03/23/24 09:06 Dose: 30 mg Latanoprost (Latanoprost 0.005% Op Soln 2.5 Ml Btl) 1 drop EYE-BOTH BEDTIME [facility] Last Admin: 03/22/24 23:28 Dose: 1 drop Losartan Potassium (Losartan 50 Mg Tablet) 50 mg PO DAILY [facility] Last Admin: 03/23/24 09:06 Dose: 50 mg Morphine Sulfate (Morphine 4 Mg/Ml Sdv 1 Ml) 2 mg IVP Q8H PRN PRN Reason: SEVERE PAIN Naloxone HCl (Naloxone 0.4 Mg/Ml Sdv) 0.1 mg IVP Q2M PRN PRN Reason: OPIATERV Non-Formulary Med( Brinzolamide 1% Op Soln) 1 each EYE-BOTH TID [facility] Last Admin: 03/23/24 09:54 Dose: Not Given Ondansetron HCl (Ondansetron 4 Mg Tablet) 4 mg PO Q8H PRN PRN Reason: NAUSEA Pantoprazole Sodium (Pantoprazole 40 Mg Sdv) 40 mg IVP Q24H [facility] Last Admin: 03/22/24 17:32 Dose: 40 mg Vitals/I&O/Wt Last Vital Signs Temp 97.8 F 03/23/24 08:00 Pulse 63 03/23/24 08:58 Resp 18 03/23/24 08:58 BP 148/87 03/23/24 09:06 Pulse Ox 98 03/23/24 08:58 O2 Del Method Room Air 03/23/24 08:58 03/22/24 03/23/24 03/23/24 22:59 06:59 14:59 Intake Total 240 / 240 200 / 440 120 / 120 Balance 240 / 240 200 / 440 120 / 120 Weight last 48 hrs Weight 220 lb 0.341 oz Weight 220 lb 0.341 oz Weight 214 lb Physical Exam Narrative: GENERAL: The patient is alert and oriented times three. Not in any acute distress. HEENT: No significant pallor, icterus or lymphadenopathy.Oral cavity: There are no mucous membrane lesions. NECK: Trachea appears to be central. No masses noted. No JVD or thyromegaly appreciated. RESPIRATORY: Chest is symmetrical. No intercostals muscle retraction or any accessory muscle activation. There is no chest wall tenderness. Breath sounds are heard bilaterally. No rales or rhonchi heard. No evidence of any consolidation. BREASTS: Deferred. HEART: The heart sounds are normal. No S3 or S4. Short systolic murmur in the left sternal border. No diastolic murmurs. No pericardial rub ABDOMEN: No vessel pulsations or distention. No tenderness. No organomegaly appreciated. Bowel sounds are normally heard. : Deferred. RECTAL: Deferred. LYMPHATIC: No lymphadenopathy noted in the neck. EXTREMITIES: No edema or cyanosis. No clubbing. MUSCULOSKELETAL: No acute joint deformities or swelling SKIN: There are no significant rashes or ecchymosis NEUROPSYCHIATRIC: The patient is alert and oriented x3. Appears to be in a good mood. No tremors or rigidity noted. Data 03/23/24 04:27 03/23/24 04:27 Other Labs: Laboratory Last Values WBC 6.50 10^3/uL (3.29-11.43) 03/23/24 04:27 RBC 4.53 10^6/uL (3.85-5.65) 03/23/24 04:27 Hgb 14.20 g/dL (11.27-16.99) 03/23/24 04:27 Hct 42.7 % (37-53) 03/23/24 04:27 MCV 94.3 fl (82-101) 03/23/24 04:27 MCH 31.3 pg (27-33) 03/23/24 04:27 MCHC 33.3 g/dL (30-55) 03/23/24 04:27 RDW 13.2 % (12.1-15.1) 03/23/24 04:27 Plt Count 221 10^3/cmm (157-399) 03/23/24 04:27 MPV 11.5 fL (7.4-10.4) H 03/23/24 04:27 Neut % (Auto) 43.7 % 03/23/24 04:27 Lymph % (Auto) 41.8 % 03/23/24 04:27 [place] % (Auto) 10.9 % 03/23/24 04:27 Eos % (Auto) 2.9 % 03/23/24 04:27 Baso % (Auto) 0.5 % 03/23/24 04:27 Neut # (Auto) 2.84 10^3/uL (1.8-7.7) 03/23/24 04:27 Lymph # (Auto) 2.7 10^3/uL (0.8-4.8) 03/23/24 04:27 [place] # (Auto) 0.7 10^3/uL (0.2-0.9) 03/23/24 04:27 Eos # (Auto) 0.2 10^3/uL (0.0-0.8) 03/23/24 04:27 Baso # (Auto) 0.0 10^3/uL (0.0-0.1) 03/23/24 04:27 Nucleated RBC % (auto) 0 % 03/23/24 04:27 Nucleated RBCs # 0.0 /100WBC 03/23/24 04:27 Sodium 138 mmol/L (136-145) 03/23/24 04:27 Potassium 4.2 mmol/L (3.5-5.1) 03/23/24 04:27 Chloride 106 mmol/L (98-107) 03/23/24 04:27 Carbon Dioxide 23 mmol/L (22-29) 03/23/24 04:27 Anion Gap 13.2 (5-19) 03/23/24 04:27 BUN 11 mg/dL (8-23) 03/23/24 04:27 Creatinine 0.8 mg/dL (0.7-1.2) 03/23/24 04:27 GFR Calculation 97.0 mL/min (90-130) 03/23/24 04:27 Glucose 132 mg/dL (65-115) H 03/23/24 04:27 Estimat Average Glucose 146 03/22/24 10:40 Hemoglobin A1c 6.7 % (4.0-6.0) H 03/22/24 10:40 Calculated Osmolality 287 mOsm/kg (285-295) 03/23/24 04: Calcium 9.0 mg/dL (8.5-10.5) 03/23/24 04:27 Total Bilirubin 0.3 mg/dL (0.15-1.2) 03/22/24 10:40 AST 33 U/L (0-40) 03/22/24 10:40 ALT 54 U/L (0-41) H 03/22/24 10:40 Alkaline Phosphatase 85 U/L (40-130) 03/22/24 10:40 Troponin T Baseline 11 ng/L (0-15) 03/22/24 10:40 Troponin T 120 Minute 9.57 ng/L (0-15) 03/22/24 12:35 Delta Troponin T -1.43 ABS# (0-10) L 03/22/24 12:35 Troponin T Hi Sens 6Hr 9.67 ng/L (0-15) 03/22/24 16:50 Troponin T Hi Sens 6Hr Delta -1.33 ng/L (0-12) L 03/22/24 16:50 Total Protein 6.9 g/dL (6.6-8.7) 03/22/24 10:40 Albumin 4.6 g/dL (3.5-5.2) 03/22/24 10:40 Globulin 2.3 g/dL (1.3-4.6) 03/22/24 10:40 Triglycerides 153 mg/dL (0-150) H 03/22/24 10:40 Cholesterol 200 mg/dL (0-200) 03/22/24 10:40 LDL Cholesterol, Calc 140 mg/dL (50-129) H 03/22/24 10:40 HDL Cholesterol 29 mg/dL (60-100) L 03/22/24 10:40 LDL/HDL Ratio 4.83 RATIO (0.00-3.22) H 03/22/24 10:40 Cholesterol/HDL Ratio 6.90 mg/dL (1.0-5.00) H 03/22/24 10:40 TSH 1.09 uIU/mL (0.27-4.20) 03/22/24 10:40 Other data: Echocardiogram from yesterday Normal left ventricular size and systolic function, EF 70% . No regional wall motion abnormalities. Grade I/IV diastolic dysfunction (abnormal relaxation filling pattern), normal to mildly elevated filling pressures. Mildly increased left atrial size. Mild mitral annular calcification. Trace mitral valve regurgitation. Thickened aortic valve. .Trace aortic valve regurgitation. Trace to 1+ tricuspid valve regurgitation. There are no intracardiac masses. There is no pericardial effusion. Compared to the study from 11/24/2023, there may not be significant change A&P Assessment and plan (1) New-onset angina: The patient is a new onset of angina may suggest progression of disease in the [place] vessels versus occlusion of the graft vessels. Patient is currently asymptomatic. At this point, I may discontinue the Pradaxa and start him on subcu Lovenox. Currently the patient has no chest pain. The vital signs are stable. May continue on the current management. The echocardiogram done yesterday revealed normal LV size and ejection fraction. (2) Atherosclerotic heart disease of [place] coronary artery with other forms of angina pectoris: Patient had aggressive multivessel coronary bypass surgery at the [facility] in 2016. He had a Myocardial perfusion imaging in May of last year as mentioned above. At this point, with the new onset of angina with the recent onset of fatigue with the dyspnea exertion, it might be appropriate to go ahead with an angiogram to decide on further management. (3) Essential hypertension: Currently normotensive. May continue on the current medications. (4) Dyslipidemia: May continue on the current medications. (5) Intermittent atrial fibrillation: Patient is off the Pradaxa and he is on Lovenox. Seems to be doing okay (6) COPD (chronic obstructive pulmonary disease): Clinically stable. Continue on the current management. Qualifiers: COPD type: unspecified COPD Qualified Code(s): J44.9 - Chronic obstructive pulmonary disease, unspecified Plan Plan for the cardiac catheterization tomorrow. Based on the results, further recommendations will be made. Will continue the current management for the time being. Attestations Medical Necessity Statement*: Patient requires continued hospital stay for close monitoring and further management Coding Level of Care Code 96138 Diagnoses New-onset angina I20.9 Atherosclerotic heart disease of [place] coronary artery with other forms of angina pectoris I25.118 Essential hypertension I10 Dyslipidemia E78.5 Intermittent atrial fibrillation I48.0 Chronic obstructive pulmonary disease, unspecified COPD type J44.9 COPD type: unspecified COPD
--- NOTE | 2024-03-23 14:53 | P.PN_ITS ---
Subjective 2 Subjective: Patient was seen this morning, he is sitting up to the side of the bed, no chest pain complaints, no nausea, no vomiting Vitals/I&O/Wt Last Vital Signs Temp 98.0 F 03/23/24 12:00 Pulse 61 03/23/24 12:00 Resp 17 03/23/24 12:00 BP 128/87 03/23/24 12:00 Pulse Ox 94 03/23/24 12:00 O2 Del Method Room Air 03/23/24 12:00 03/22/24 03/23/24 03/23/24 22:59 06:59 14:59 Intake Total 240 / 240 200 / 440 120 / 120 Balance 240 / 240 200 / 440 120 / 120 Weight last 48 hrs Weight 99.8 kg Weight 99.8 kg Weight 97.069 kg Physical Exam 2 Const: COMMON NORMALS: no acute distress and patient oriented x3 Resp: COMMON NORMALS: normal respiratory effort, No retractions, No use of accessory muscles and clear to auscultation bilaterally AUSCULTATION: clear to auscultation bilaterally Cardio: COMMON NORMALS: regular rate, regular rhythm, S1 normal heart sound present and S2 normal heart sound present RATE: regular rate RHYTHM: r egular rhythm HEART SOUNDS: S1 normal heart sound present and S2 normal heart sound present GI: COMMON NORMALS: Normal to inspection, nondistended, normoactive bowel sounds present and non-tender Extremity: COMMON NORMALS: no pedal edema Neuro: COMMON NORMALS: patient oriented x3 Psych: COMMON NORMALS: mental status grossly normal Data 03/23/24 04:27 03/23/24 04:27 A&P Assessment and plan (1) Atypical chest pain: Plan Atypical chest pain -EKG shows sinus bradycardia with first-degree AV block, first troponin was 11, no significant delta troponin ? History of CABG x 2 -Cardiac echo CONCLUSIONS Normal left ventricular size and systolic function, EF 70% . No regional wall motion abnormalities. Grade I/IV diastolic dysfunction (abnormal relaxation filling pattern), normal to mildly elevated filling pressures. Mildly increased left atrial size. Mild mitral annular calcification. Trace mitral valve regurgitation. Thickened aortic valve. .Trace aortic valve regurgitation. Trace to 1+ tricuspid valve regurgitation. There are no intracardiac masses. There is no pericardial effusion. Compared to the study from 11/24/2023, there may not be significant change -Plan ? Serial EKGs, serial troponins, telemetry monitoring ? Aspirin, ? Has allergy to statin ? Currently bradycardic, will hold off on beta-cresencio ? Cardiology consulted, currently on therapeutic Lovenox, off Pradaxa ? Does take Pradaxa at home, will hold dose just in case he needs coronary intervention -Due to his atypical pain complaints, and neck pain complaints, will do CT of the neck -A1c 6.7, type 2 diabetes mellitus, will start low-dose sliding scale ? Monitor CSU ? Full code ? SCDs for DVT prophylaxis Attestations 2 Medical Necessity Statement*: Patient requires hospitalization for atypical chest pain, proceeding with cardiac cath Diagnoses Atypical chest pain R07.89
[2024-03-23 17:29] LABS: Glucose Point of Care 135 mg/dL (70-110)
[2024-03-23] MEDS: pantoprazole 40 mg SDV IVP (17:34)
[2024-03-23 20:49] LABS: Glucose Point of Care 124 mg/dL (70-110)
[2024-03-23] MEDS: BRINZOLAMIDE 1% 1 EACH EYE-BOTH (21:22)
[2024-03-23] MEDS: latanoprost 0.005% Op Soln 2.5 mL Btl 1 DROP EYE-BOTH (21:22)
[2024-03-24] VITALS (12 sets, daily range): BP systolic 107–158; BP diastolic 67–82; PULSE 53–61; RESP 12–23; TEMP 36.2–36.8; O2SAT 94–98
[2024-03-24 03:12] LABS: Basophils % 0.6 %; Eosinophils # 0.2 10^3/uL (0.0-0.8); Eosinophils % 2.8 %; Lymphocytes # 2.6 10^3/uL (0.8-4.8); Mean Corpuscular HGB Conc 32.3 g/dL (30-55); Mean Corpuscular Hemoglobin 30.5 pg (27-33); Mean Corpuscular Volume 94.5 fl (82-101); Mean Platelet Volume 11.4 fL (7.4-10.4); Monocytes # 0.8 10^3/uL (0.2-0.9); Monocytes % 12.3 %; Neutrophils # 3.17 10^3/uL (1.8-7.7); Neutrophils % 46.2 %; Nucleated Red Blood Cells % 0 %; Platelet Count 237 10^3/cmm (157-399); Red Blood Count 4.55 10^6/uL (3.85-5.65); Red Cell Distribution Width 12.8 % (12.1-15.1); White Blood Count 6.85 10^3/uL (3.29-11.43)
[2024-03-24 03:33] LABS: Anion Gap 11.6 (5-19); Blood Urea Nitrogen 13 mg/dL (8-23); Calcium 8.8 mg/dL (8.5-10.5); Carbon Dioxide 26 mmol/L (22-29); Chloride 105 mmol/L (98-107); Creatinine Clr Calc Pharmacy 100.0926; Glomerular Filtration Rate 84.7 mL/min (90-130); Glucose 146 mg/dL (65-115); Osmolality Calculated 289 mOsm/kg (285-295); Potassium 4.6 mmol/L (3.5-5.1); Sodium 138 mmol/L (136-145)
--- NOTE | 2024-03-24 06:19 | PC.NURSE ---
Called and spoke with . Patient has 90mg dose lovenox due this morning and is scheduled for cath 1pm. said hold this mornings dose of lovenox.
[2024-03-24 06:31] LABS: Glucose Point of Care 126 mg/dL (70-110)
[2024-03-24] MEDS: aspirin 81 mg EC Tablet PO (08:42)
[2024-03-24] MEDS: losartan 50 mg Tablet PO (08:42)
[2024-03-24] MEDS: isosorbide mononitrate ER 30 mg Tablet PO (08:42)
--- NOTE | 2024-03-24 10:36 | XACV_ITS ---
Exam Room: 2 Ht: 183 cm Wt: 100 kg BSA: 2.27 m2 Gender: Male : 1960 Exam Priority: Routine Procedure(s): Procedure Description: Diagnostic procedure Procedure Description: Left Heart Catheterization Procedure Description: Left ventriculography Procedure Description: Venous Graft Catheterization Procedure Description: MALDONADO Graft Catheterization Procedure Description: Coronary Angiography Akash HARRIS; Diagnostic Cath Status: Elective Diagnostic Findings * Left Main: moderate 50% stenosis, HOLLY: 3 flow. * Proximal Left Anterior Descending: severe 90% stenosis, HOLLY: 3 flow. * Left Internal Mammary Artery to Mid Left Anterior Descending graft: patent. * Proximal Circumflex: severe 90% stenosis, HOLLY: 3 flow. * Posterior Descending Right: minimal 30% stenosis, HOLLY: 3 flow. * Ascending Aorta to Third Obtuse Marginal Branch Segment graft: patent. * Two grafts visualized. * Coronary angiography shows right dominance. Conclusions 1. There is severe coronary artery disease with four vessel disease. 2. Two coronary grafts visualized: all grafts patent. 3. Patient has prior CABG. Recommendations * Continue current medical management and risk factor modification. Diagnostic RX Recommendation: medical therapy and/or counseling Ventriculography Ejection Fraction: 60.0 % Pressures Phase:Rest AO : 110 / 64 ( 76 ) @ 2:02:00 PM 127 / 77 ( 97 ) @ 2:15:00 PM 128 / 80 ( 100 ) @ 2:19:00 PM 119 / 89 ( 104 ) @ 2:21:00 PM 109 / 55 ( 79 ) @ 2:28:00 PM 112 / 59 ( 82 ) @ 2:28:00 PM LV : 128 / -8 / 12 @ 2:26:00 PM 124 / -6 / 16 @ 2:28:00 PM 123 / -6 / 17 @ 2:28:00 PM Valves Phase:DefaultPhase AV : 3.0 @ 1:39:51 PM AV Mean Gradient: 5.0 @ 1:39:51 PM Clinical Evaluation EBL: 5mL-10mL Procedural Details Current Diagnosis : Chest Pain. Pre-Procedure Time Out. Identified patient by full name and date of as verbalized by the patient/guarantor. Does the consent match the physician's order: Yes. Accurate & Complete Informed Consent: Yes. Inpatient/Outpatient History & Physical on Chart: Yes. If H&P is completed, is and addenduem needed: No; If yes, is the addendum complete: N/A. Visualize and Verify Site with Patient/Guarantor: N/A. Relevant Radiology Images available: Yes. Pre-op teaching completed and patient verbalized understanding. The risks, benefits, and alternatives of sedation and/or procedure were discussed by physician. The patient agrees to continue. Procedure started. Physician arrived. [facility] Clinical Fraility Score: 3: Managing Well. Hot Man Indications: Worsening Angina. Chest Pain Symptom Assessment: Atypical Angina. Correct patient, site and procedure confirmed by cath team. Current diagnosis: Chest Pain. PERRLA. Strong, equal hand alarm signaler bilaterally. Lungs clear x 5 lobes. IV Site on Arrival: 20 gauge in the left forearm. IV Fluids: 0.9% NaCl at KVO. 0 mL infused prior to manufacturing laborer. Oxygen started at 2liters/min via nasal canula. bilateral groins was prepped with chloroprep then draped in the usual sterile fashion. Baseline sample Acquired. HR: 59 BPM. Physician scrubbed in. Immediate Pre-Procedure Time Out. Correct Patient: Yes; Correct Procedure: Yes; Correct Site: Yes; Correct Patient Position: Yes; Correct Supplies: Yes; Dried Flammable Prep: Yes; Blood Products Available: N/A;. Lidocaine 1% infiltrated to the right groin. Arterial access obtained with micropuncture set. A 5 guyanese JL4 catheter in over wire. Catheter removed over the standard wire. A 5 guyanese Mich catheter in over wire. Multiple views taken of right coronary artery. Catheter redirected to the LCA. Catheter removed over the standard wire. 6 guyanese XB 3.5 guide catheter was inserted over the wire. Multiple views taken of left coronary artery. Catheter removed over the standard wire. A 5 guyanese JR4 catheter in over wire. Multiple views taken of right coronary artery. SVG's to OM visualized and patent. MALDONADO to LAD visualized. Catheter removed over the standard wire. A 5 guyanese Angled Pig catheter in over wire. EDP Sample taken: LV 128/-9,12; HR: 54 BPM; SpO2: 99%. LV gram performed in SPIVEY @ 10 mL/second for a total of 30 mL. EDP Sample taken: LV 124/-6,16; HR: 52 BPM; SpO2: 99%. Pullback taken: LV 123/-7,17; AO 109/55(79); Mean: 5mmHg, Peak to Peak: 3mmHg, SEP: 7sec/min; HR: 59 BPM; SpO2: 99%. Catheter removed over the standard wire. A Right femoral angiogram was performed to determine safe placement of closure device. A Mynx was successful obtaining hemostatsis at the Right Femoral artery insertion site. Post Procedure: Pulses reassessed and unchanged. PERRLA. Strong, equal hand alarm signaler bilaterally. No VTE prophylaxis required. Medication's Wasted: Lidocaine 1% = 10 mL. Medication's Wasted: Heparin = 1000 UNITS. Total IV fluids: 50 mL. Complications: None. Estimated blood loss: 5mL-10mL. Responsiveness - Normal response to verbal stimuli; alert and oriented, PERRLA. Airway - Unaffected, no intervention required; spontaneous ventilation. Circulation: W/N/L, pulses unchanged. Nausea/Vomiting: No. Vital chart was stopped. Procedure completed. Patient transferred by bed to 1st floor. Access Site Site: Right Femoral artery Sheath Size: 6 Fr Hemostasis Method: Mynx Hemostasis Success: Successful Complication Findings: non. Procedure Medications Start: 12:49 PM Stop: 12:49 PM Medication: Versed Amount: 1 mg Route: I.V. Start: 12:49 PM Stop: 12:49 PM Medication: Fentanyl Amount: 50 mcg Route: I.V. Start: 12:56 PM Stop: 12:56 PM Medication: Versed 1 mg and Fentanyl 25 mcg Amount: 1 Route: I.V. Start: 1:08 PM Stop: 1:08 PM Medication: Versed 1 mg and Fentanyl 25 mcg Amount: 1 Route: I.V. Start: 1:19 PM Stop: 1:19 PM Medication: Versed Amount: 1 mg Route: I.V. I, the attending physician, have reviewed and verified all procedure medications. Yes, all medications given per verbal order History/Risk Factors Hypertension: Yes Dyslipidemia: No Peripheral Arterial Disease (PAD): No Myocardial Infarction (WA): No Obesity: No Renal Disease: No Prior Interventions PCI: No CABG: Yes Valve Surgery: No Report Signatures Finalized by Jefe Way MD on 03/24/2024 03:08 PM
--- NOTE | 2024-03-24 11:24 | CTR_ITS ---
PROCEDURE INFORMATION: Exam: CT Cervical Spine Without Contrast Exam date and time: 03/24/2024 1:48 PM Age: 64 years old Clinical indication: Neck pain; Additional info: Neck pain, do after heart cath TECHNIQUE: Imaging protocol: Computed tomography of the cervical spine without contrast. Radiation optimization: All CT scans at this facility use at least one of these dose optimization techniques: automated exposure control; mA and/or kV adjustment per patient size (includes targeted exams where dose is matched to clinical indication); or iterative reconstruction. COMPARISON: CT lung screening [id number] 12/09/2020 10:56 AM RADIATION DOSE METRICS: Total DLP (mGy-cm): 236.07 FINDINGS: Bones: Normal craniocervical and atlantoaxial alignment. The odontoid process is intact. There is no evidence of increased density within the spinal canal to suggest hemorrhage. Normal alignment of the cervical spine vertebral bodies and facets without evidence of listhesis or skipped/perched facet. No cervical spinal fracture is seen. There is moderate endplate degenerative change and mild disc space narrowing at C5-C6. There is also moderate degenerative change at the atlantodental articulation. Otherwise mild scattered spondylosis. No aggressive osseous lesion is seen. Incidental bone island within the T2 vertebral body measuring approximately 5 mm. Mastoid air cells: Visualized mastoid air cells are clear. Prevertebral and retropharyngeal spaces: The prevertebral soft tissues are normal in thickness. Lungs: Bilateral apical scarring in the lungs. Vasculature: There is atherosclerotic calcification in the carotid bulbs. Soft tissues: Unremarkable. CT/CT cervical spin wo con* [id number] IMPRESSION: 1. No evidence of a cervical spinal fracture or malalignment. 2. [id number] scattered spondylosis.
--- NOTE | 2024-03-24 11:40 | W.PM.OPSUD ---
Surgery/Procedure H&P Update DATE OF PROCEDURE: March 24, 2024 DATE H&P PERFORMED: 03/22/24 H&P UPDATE INFORMATION: I have reviewed H&P completed within last 30 days, I have examined patient prior to procedure and No changes to prior documentation PREOP DIAGNOSIS: Chest pain with history of CABG suggestive of angina PLANNED PROCEDURE: Operation Date: 03/24/24 13:00 Proposed Procedures p Cardiac Catheterization(Left) - Jefe Way MD PATIENT REASSESSED PRIOR TO SEDATION, WITH NO CHANGE NOTED: Yes PHYSICAL EXAM: alert, oriented x 3, clear to auscultation bilaterally, regular rate & rhythm and operative site marked AIRWAY EVAL/ANESTHESIA PLAN: ASA II, Risks, benefits & alternatives of sedation and/or procedure discussed and Patient agrees to continue as planned ADDITIONAL INFORMATION: Mallampati 2
[2024-03-24 11:49] LABS: Glucose Point of Care 113 mg/dL (70-110)
[2024-03-24] MEDS: diphenhydrAMINE 50 mg Capsule PO (12:00)
[2024-03-24] MEDS: sodium chloride 0.9% 1,000 ML 50 ML IV (12:00)
--- NOTE | 2024-03-24 13:00 | P.PN_ITS ---
Subjective 2 Subjective: Patient was seen this morning, he sitting up side of the bed, no chest pain overnight, awaiting cardiac cath, Vitals/I&O/Wt Last Vital Signs Temp 97.6 F 03/24/24 11:40 Pulse 59 L 03/24/24 11:40 Resp 13 03/24/24 11:40 BP 130/67 03/24/24 11:40 Pulse Ox 96 03/24/24 11:40 O2 Del Method Room Air 03/24/24 11:40 03/23/24 03/24/24 03/24/24 22:59 06:59 14:59 Intake Total 340 / 460 Balance 340 / 460 Weight last 48 hrs Weight 99.8 kg Weight 99.8 kg Weight 99.8 kg Weight 97.069 kg Physical Exam 2 Const: COMMON NORMALS: no acute distress and patient oriented x3 Resp: COMMON NORMALS: normal respiratory effort, No retractions, No use of accessory muscles and clear to auscultation bilaterally AUSCULTATION: clear to auscultation bilaterally Cardio: COMMON NORMALS: regular rate, regular rhythm, S1 normal heart sound present and S2 normal heart sound present RATE: regular rate RHYTHM: r egular rhythm HEART SOUNDS: S1 normal heart sound present and S2 normal heart sound present GI: COMMON NORMALS: Normal to inspection, nondistended, normoactive bowel sounds present and non-tender Extremity: COMMON NORMALS: no pedal edema Neuro: COMMON NORMALS: patient oriented x3 Psych: COMMON NORMALS: mental status grossly normal Data 03/24/24 02:57 03/24/24 02:57 A&P Assessment and plan (1) Atypical chest pain: Plan Atypical chest pain -EKG shows sinus bradycardia with first-degree AV block, first troponin was 11, no significant delta troponin ? History of CABG x 2 -Cardiac echo CONCLUSIONS Normal left ventricular size and systolic function, EF 70% . No regional wall motion abnormalities. Grade I/IV diastolic dysfunction (abnormal relaxation filling pattern), normal to mildly elevated filling pressures. Mildly increased left atrial size. Mild mitral annular calcification. Trace mitral valve regurgitation. Thickened aortic valve. .Trace aortic valve regurgitation. Trace to 1+ tricuspid valve regurgitation. There are no intracardiac masses. There is no pericardial effusion. Compared to the study from 11/24/2023, there may not be significant change -Plan ? Serial EKGs, serial troponins, telemetry monitoring ? Aspirin, ? Has allergy to statin ? Currently bradycardic, will hold off on beta-cresencio ? Cardiology consulted, currently on therapeutic Lovenox, off Pradaxa ? Does take Pradaxa at home, will hold dose just in case he needs coronary intervention -Due to his atypical pain complaints, and neck pain complaints, will do CT of the neck -A1c 6.7, type 2 diabetes mellitus, will start low-dose sliding scale ? Monitor CSU ? Full code ? SCDs for DVT prophylaxis Plan for cardiac catheter today, will do CT of the neck after his cardiac cath due to neck pain complaints, possible discharge patient clinical progress Attestations 2 Medical Necessity Statement*: Patient requires hospitalization for atypical chest pain Diagnoses Atypical chest pain R07.89
--- NOTE | 2024-03-24 14:11 | PM.PN ---
Subjective Subjective: Patient underwent cardiac catheterization today by Dr. Way. He was found to have no revascularizable lesions. No new symptoms. Medications: Medication Review Details: Current Medications Acetaminophen (Acetaminophen 325 Mg Tablet) 650 mg PO Q6H PRN PRN Reason: Mild/Mod Pain Or Temp >/= 101 Acetaminophen (Acetaminophen 325 Mg Tablet) 650 mg PO Q6H PRN PRN Reason: MILD PAIN Hydrocodone Bitart/Acetaminophen (Hydrocodone-Acetaminophen 5-325 Mg Tablet) 1 tab PO Q4H PRN PRN Reason: PAIN Al Hydrox/Mg Hydrox/Simethicone (Nsrs-Lmf-Uzzkdgbir-Norma 30 Ml Udc) 30 ml PO Q15M PRN PRN Reason: INDIGESTION Albuterol Sulfate (Albuterol 2.5 Mg/3 Ml Neb) 2.5 mg INHALATION Q6H.RESP PRN PRN Reason: SHORTNESS OF BREATH Alprazolam (Alprazolam 0.5 Mg Tablet) 0.25 mg PO TID PRN PRN Reason: ANXIETY Aspirin (Aspirin 81 Mg Ec Tablet) 81 mg PO DAILY [facility] Last Admin: 03/24/24 08:42 Dose: 81 mg Atropine Sulfate (Atropine 1 Mg/Ml Sdv 1 Ml) 0.5 mg IVP PRN PRN PRN Reason: Symptomatic bradycardia Enoxaparin Sodium (Enoxaparin 100 Mg/Ml Syringe) 90 mg SUBCUT Q12H [facility] Last Admin: 03/24/24 06:19 Dose: Not Given Fentanyl (Fentanyl 50 Mcg/Ml Inj 2ml) 50 mcg IVP PRN PRN PRN Reason: PAIN Glucagon (Glucagon 1 Mg/Ml Kit 1 Ml) 1 mg IM ONCE PRN; Protocol PRN Reason: Adult Acute Hypoglycemia Nursing Prot. Sodium Chloride (Sodium Chloride 0.9%) 1,000 mls @ 50 mls/hr IV .Q20H ONE Stop: 03/25/24 07:59 Last Admin: 03/24/24 12:00 Dose: 50 mls/hr Dextrose (D5w) 500 mls @ 0 mls/hr IV ONCE PRN; Protocol PRN Reason: Adult Acute Hypoglycemia Prot Dextrose (D10w) 125 mls @ 750 mls/hr IV PRN PRN; Protocol PRN Reason: Adult Acute Hypoglycemia Nursing Protocol Dextrose (D10w) 250 mls @ 1,000 mls/hr IV PRN PRN; Protocol PRN Reason: Adult Acute Hypoglycemia Nursing Protocol Sodium Chloride (Sodium Chloride 0.9%) 1,000 mls @ 100 mls/hr IV .Q10H [facility] Insulin Human Lispro (Insulin Lispro 100 Unit/1 Ml) 0 unit SUBCUT TIDWM [facility]; Protocol Last Admin: 03/24/24 12:01 Dose: Not Given Isosorbide Mononitrate (Isosorbide Mononitrate Er 30 Mg Tablet) 30 mg PO BID [facility] Last Admin: 03/24/24 08:42 Dose: 30 mg Latanoprost (Latanoprost 0.005% Op Soln 2.5 Ml Btl) 1 drop EYE-BOTH BEDTIME [facility] Last Admin: 03/23/24 21:22 Dose: 1 drop Lorazepam (Lorazepam 2 Mg/Ml Inj 1 Ml) 1 mg IVP Q24H PRN PRN Reason: claustrophobia, give before ct scan Losartan Potassium (Losartan 50 Mg Tablet) 50 mg PO DAILY [facility] Last Admin: 03/24/24 08:42 Dose: 50 mg Magnesium Hydroxide (Magnesium Hydroxide 30 Ml Udc) 30 ml PO DAILY PRN PRN Reason: CONSTIPATION Morphine Sulfate (Morphine 4 Mg/Ml Sdv 1 Ml) 2 mg IVP Q8H PRN PRN Reason: SEVERE PAIN Naloxone HCl (Naloxone 0.4 Mg/Ml Sdv) 0.1 mg IVP Q2M PRN PRN Reason: OPIATERV Naloxone HCl (Naloxone 0.4 Mg/Ml Sdv) 0.1 mg IVP Q2M PRN PRN Reason: RESPIRATORY RATE < 8/MIN Nitroglycerin (Nitroglycerin 0.4 Mg Sublingual Tablet) 0.4 mg SUBLINGUAL Q5M PRN PRN Reason: CHEST PAIN Non-Formulary Med( Brinzolamide 1% Op Soln) 1 each EYE-BOTH TID [facility] Last Admin: 03/24/24 09:34 Dose: Not Given Ondansetron HCl (Ondansetron 4 Mg Tablet) 4 mg PO Q8H PRN PRN Reason: NAUSEA Pantoprazole Sodium (Pantoprazole 40 Mg Sdv) 40 mg IVP Q24H [facility] Last Admin: 03/23/24 17:34 Dose: 40 mg Temazepam (Temazepam 15 Mg Capsule) 15 mg PO BEDTIME PRN PRN Reason: INSOMNIA Vitals/I&O/Wt Last Vital Signs Temp 98.2 F 03/24/24 13:42 Pulse 58 L 03/24/24 13:42 Resp 16 03/24/24 13:42 BP 107/71 03/24/24 13:42 Pulse Ox 96 03/24/24 13:42 O2 Del Method Room Air 03/24/24 13:42 03/23/24 03/24/24 03/24/24 22:59 06:59 14:59 Intake Total 340 / 460 Balance 340 / 460 Weight last 48 hrs Weight 220 lb 0.341 oz Weight 220 lb 0.341 oz Weight 220 lb 0.341 oz Weight 214 lb Physical Exam Narrative: GENERAL: The patient is alert and oriented times three. Not in any acute distress. HEENT: No significant pallor, icterus or lymphadenopathy.Oral cavity: There are no mucous membrane lesions. NECK: Trachea appears to be central. No masses noted. No JVD or thyromegaly appreciated. RESPIRATORY: Chest is symmetrical. No intercostals muscle retraction or any accessory muscle activation. There is no chest wall tenderness. Breath sounds are heard bilaterally. No rales or rhonchi heard. No evidence of any consolidation. BREASTS: Deferred. HEART: The heart sounds are normal. No S3 or S4. Short systolic murmur in the left sternal border. No diastolic murmurs. No pericardial rub ABDOMEN: No vessel pulsations or distention. No tenderness. No organomegaly appreciated. Bowel sounds are normally heard. : Deferred. RECTAL: Deferred. LYMPHATIC: No lymphadenopathy noted in the neck. EXTREMITIES: No hematoma bleeding in the right groin MUSCULOSKELETAL: No acute joint deformities or swelling SKIN: There are no significant rashes or ecchymosis NEUROPSYCHIATRIC: The patient is alert and oriented x3. Appears to be in a good mood. No tremors or rigidity noted. Data 03/24/24 02:57 03/24/24 02:57 Other Labs: Laboratory Last Values WBC 6.85 10^3/uL (3.29-11.43) 03/24/24 02:57 RBC 4.55 10^6/uL (3.85-5.65) 03/24/24 02:57 Hgb 13.90 g/dL (11.27-16.99) 03/24/24 02:57 Hct 43.0 % (37-53) 03/24/24 02:57 MCV 94.5 fl (82-101) 03/24/24 02:57 MCH 30.5 pg (27-33) 03/24/24 02:57 MCHC 32.3 g/dL (30-55) 03/24/24 02:57 RDW 12.8 % (12.1-15.1) 03/24/24 02:57 Plt Count 237 10^3/cmm (157-399) 03/24/24 02:57 MPV 11.4 fL (7.4-10.4) H 03/24/24 02:57 Neut % (Auto) 46.2 % 03/24/24 02:57 Lymph % (Auto) 38.0 % 03/24/24 02:57 [place] % (Auto) 12.3 % 03/24/24 02:57 Eos % (Auto) 2.8 % 03/24/24 02:57 Baso % (Auto) 0.6 % 03/24/24 02:57 Neut # (Auto) 3.17 10^3/uL (1.8-7.7) 03/24/24 02:57 Lymph # (Auto) 2.6 10^3/uL (0.8-4.8) 03/24/24 02:57 [place] # (Auto) 0.8 10^3/uL (0.2-0.9) 03/24/24 02:57 Eos # (Auto) 0.2 10^3/uL (0.0-0.8) 03/24/24 02:57 Baso # (Auto) 0.0 10^3/uL (0.0-0.1) 03/24/24 02:57 Nucleated RBC % (auto) 0 % 03/24/24 02:57 Nucleated RBCs # 0.0 /100WBC 03/24/24 02:57 Sodium 138 mmol/L (136-145) 03/24/24 02:57 Potassium 4.6 mmol/L (3.5-5.1) 03/24/24 02:57 Chloride 105 mmol/L (98-107) 03/24/24 02:57 Carbon Dioxide 26 mmol/L (22-29) 03/24/24 02:57 Anion Gap 11.6 (5-19) 03/24/24 02:57 BUN 13 mg/dL (8-23) 03/24/24 02:57 Creatinine 0.9 mg/dL (0.7-1.2) 03/24/24 02:57 GFR Calculation 84.7 mL/min (90-130) L 03/24/24 02:57 Glucose 146 mg/dL (65-115) H 03/24/24 02:57 POC Glucose 113 mg/dL (70-110) H 03/24/24 11:44 Estimat Average Glucose 146 03/22/24 10:40 Hemoglobin A1c 6.7 % (4.0-6.0) H 03/22/24 10:40 Calculated Osmolality 289 mOsm/kg (285-295) 03/24/24 02:57 Calcium 8.8 mg/dL (8.5-10.5) 03/24/24 02:57 Total Bilirubin 0.3 mg/dL (0.15-1.2) 03/22/24 10:40 AST 33 U/L (0-40) 03/22/24 10:40 ALT 54 U/L (0-41) H 03/22/24 10:40 Alkaline Phosphatase 85 U/L (40-130) 03/22/24 10:40 Troponin T Baseline 11 ng/L (0-15) 03/22/24 10:40 Troponin T 120 Minute 9.57 ng/L (0-15) 03/22/24 12:35 Delta Troponin T -1.43 ABS# (0-10) L 03/22/24 12:35 Troponin T Hi Sens 6Hr 9.67 ng/L (0-15) 03/22/24 16:50 Troponin T Hi Sens 6Hr Delta -1.33 ng/L (0-12) L 03/22/24 16:50 Total Protein 6.9 g/dL (6.6-8.7) 03/22/24 10:40 Albumin 4.6 g/dL (3.5-5.2) 03/22/24 10:40 Globulin 2.3 g/dL (1.3-4.6) 03/22/24 10:40 Triglycerides 153 mg/dL (0-150) H 03/22/24 10:40 Cholesterol 200 mg/dL (0-200) 03/22/24 10:40 LDL Cholesterol, Calc 140 mg/dL (50-129) H 03/22/24 10:40 HDL Cholesterol 29 mg/dL (60-100) L 03/22/24 10:40 LDL/HDL Ratio 4.83 RATIO (0.00-3.22) H 03/22/24 10:40 Cholesterol/HDL Ratio 6.90 mg/dL (1.0-5.00) H 03/22/24 10:40 TSH 1.09 uIU/mL (0.27-4.20) 03/22/24 10:40 A&P Assessment and plan (1) New-onset angina: Will continue on her current medications (2) Atherosclerotic heart disease of [place] coronary artery with other forms of angina pectoris: Patient had aggressive multivessel coronary bypass surgery at the [facility] in 2016. He had a Myocardial perfusion imaging in May of last year as mentioned above. At this point, with the new onset of angina with the recent onset of fatigue with the dyspnea exertion, it might be appropriate to go ahead with an angiogram to decide on further management. (3) Essential hypertension: Currently normotensive. May continue on the current medications. (4) Dyslipidemia: May continue on the current medications. (5) Intermittent atrial fibrillation: Patient is off the Pradaxa and he is on Lovenox. Seems to be doing okay (6) COPD (chronic obstructive pulmonary disease): Clinically stable. Continue on the current management. Qualifiers: COPD type: unspecified COPD Qualified Code(s): J44.9 - Chronic obstructive pulmonary disease, unspecified Plan Discontinue the heparin. May be restarted on Pradaxa Continue on the current medications. [facility]ointment [facility] to be seen by nurse practitioner in [address] Way in 1 month Attestations Medical Necessity Statement*: Possible discharge home today Coding Level of Care Code 88069 Diagnoses New-onset angina I20.9 Atherosclerotic heart disease of [place] coronary artery with other forms of angina pectoris I25.118 Essential hypertension I10 Dyslipidemia E78.5 Intermittent atrial fibrillation I48.0 Chronic obstructive pulmonary disease, unspecified COPD type J44.9 COPD type: unspecified COPD
--- NOTE | 2024-03-24 14:51 | PM.PN ---
Subjective Subjective: Patient underwent cardiac catheterization today by Dr. Way. He was found to have no revascularizable lesions. No new symptoms. Medications: Medication Review Details: Current Medications Acetaminophen (Acetaminophen 325 Mg Tablet) 650 mg PO Q6H PRN PRN Reason: Mild/Mod Pain Or Temp >/= 101 Acetaminophen (Acetaminophen 325 Mg Tablet) 650 mg PO Q6H PRN PRN Reason: MILD PAIN Hydrocodone Bitart/Acetaminophen (Hydrocodone-Acetaminophen 5-325 Mg Tablet) 1 tab PO Q4H PRN PRN Reason: PAIN Al Hydrox/Mg Hydrox/Simethicone (Nnoz-Rrt-Vitxnvhqr-Norma 30 Ml Udc) 30 ml PO Q15M PRN PRN Reason: INDIGESTION Albuterol Sulfate (Albuterol 2.5 Mg/3 Ml Neb) 2.5 mg INHALATION Q6H.RESP PRN PRN Reason: SHORTNESS OF BREATH Alprazolam (Alprazolam 0.5 Mg Tablet) 0.25 mg PO TID PRN PRN Reason: ANXIETY Aspirin (Aspirin 81 Mg Ec Tablet) 81 mg PO DAILY [facility] Last Admin: 03/24/24 08:42 Dose: 81 mg Atropine Sulfate (Atropine 1 Mg/Ml Sdv 1 Ml) 0.5 mg IVP PRN PRN PRN Reason: Symptomatic bradycardia Enoxaparin Sodium (Enoxaparin 100 Mg/Ml Syringe) 90 mg SUBCUT Q12H [facility] Last Admin: 03/24/24 06:19 Dose: Not Given Fentanyl (Fentanyl 50 Mcg/Ml Inj 2ml) 50 mcg IVP PRN PRN PRN Reason: PAIN Glucagon (Glucagon 1 Mg/Ml Kit 1 Ml) 1 mg IM ONCE PRN; Protocol PRN Reason: Adult Acute Hypoglycemia Nursing Prot. Sodium Chloride (Sodium Chloride 0.9%) 1,000 mls @ 50 mls/hr IV .Q20H ONE Stop: 03/25/24 07:59 Last Admin: 03/24/24 12:00 Dose: 50 mls/hr Dextrose (D5w) 500 mls @ 0 mls/hr IV ONCE PRN; Protocol PRN Reason: Adult Acute Hypoglycemia Prot Dextrose (D10w) 125 mls @ 750 mls/hr IV PRN PRN; Protocol PRN Reason: Adult Acute Hypoglycemia Nursing Protocol Dextrose (D10w) 250 mls @ 1,000 mls/hr IV PRN PRN; Protocol PRN Reason: Adult Acute Hypoglycemia Nursing Protocol Sodium Chloride (Sodium Chloride 0.9%) 1,000 mls @ 100 mls/hr IV .Q10H [facility] Insulin Human Lispro (Insulin Lispro 100 Unit/1 Ml) 0 unit SUBCUT TIDWM [facility]; Protocol Last Admin: 03/24/24 12:01 Dose: Not Given Isosorbide Mononitrate (Isosorbide Mononitrate Er 30 Mg Tablet) 30 mg PO BID [facility] Last Admin: 03/24/24 08:42 Dose: 30 mg Latanoprost (Latanoprost 0.005% Op Soln 2.5 Ml Btl) 1 drop EYE-BOTH BEDTIME [facility] Last Admin: 03/23/24 21:22 Dose: 1 drop Lorazepam (Lorazepam 2 Mg/Ml Inj 1 Ml) 1 mg IVP Q24H PRN PRN Reason: claustrophobia, give before ct scan Losartan Potassium (Losartan 50 Mg Tablet) 50 mg PO DAILY [facility] Last Admin: 03/24/24 08:42 Dose: 50 mg Magnesium Hydroxide (Magnesium Hydroxide 30 Ml Udc) 30 ml PO DAILY PRN PRN Reason: CONSTIPATION Morphine Sulfate (Morphine 4 Mg/Ml Sdv 1 Ml) 2 mg IVP Q8H PRN PRN Reason: SEVERE PAIN Naloxone HCl (Naloxone 0.4 Mg/Ml Sdv) 0.1 mg IVP Q2M PRN PRN Reason: OPIATERV Naloxone HCl (Naloxone 0.4 Mg/Ml Sdv) 0.1 mg IVP Q2M PRN PRN Reason: RESPIRATORY RATE < 8/MIN Nitroglycerin (Nitroglycerin 0.4 Mg Sublingual Tablet) 0.4 mg SUBLINGUAL Q5M PRN PRN Reason: CHEST PAIN Non-Formulary Med( Brinzolamide 1% Op Soln) 1 each EYE-BOTH TID [facility] Last Admin: 03/24/24 09:34 Dose: Not Given Ondansetron HCl (Ondansetron 4 Mg Tablet) 4 mg PO Q8H PRN PRN Reason: NAUSEA Pantoprazole Sodium (Pantoprazole 40 Mg Sdv) 40 mg IVP Q24H [facility] Last Admin: 03/23/24 17:34 Dose: 40 mg Temazepam (Temazepam 15 Mg Capsule) 15 mg PO BEDTIME PRN PRN Reason: INSOMNIA Vitals/I&O/Wt Last Vital Signs Temp 98.2 F 03/24/24 13:42 Pulse 58 L 03/24/24 13:42 Resp 16 03/24/24 13:42 BP 107/71 03/24/24 13:42 Pulse Ox 96 03/24/24 13:42 O2 Del Method Room Air 03/24/24 13:42 03/23/24 03/24/24 03/24/24 22:59 06:59 14:59 Intake Total 340 / 460 Balance 340 / 460 Weight last 48 hrs Weight 220 lb 0.341 oz Weight 220 lb 0.341 oz Weight 220 lb 0.341 oz Weight 214 lb Physical Exam Const: COMMON NORMALS: alert Resp: COMMON NORMALS: clear to auscultation bilaterally AUSCULTATION: clear to auscultation bilaterally Neuro: SENSORIUM/ORIENTATION: Yes alert Data 03/24/24 02:57 03/24/24 02:57 A&P Assessment and plan (1) New-onset angina: The patient is a new onset of angina may suggest progression of disease in the [place] vessels versus occlusion of the graft vessels. Patient is currently asymptomatic. At this point, I may discontinue the Pradaxa and start him on subcu Lovenox. Currently the patient has no chest pain. The vital signs are stable. May continue on the current management. The echocardiogram done yesterday revealed normal LV size and ejection fraction. (2) Atherosclerotic heart disease of [place] coronary artery with other forms of angina pectoris: Patient had aggressive multivessel coronary bypass surgery at the [facility] in 2016. He had a Myocardial perfusion imaging in May of last year as mentioned above. At this point, with the new onset of angina with the recent onset of fatigue with the dyspnea exertion, it might be appropriate to go ahead with an angiogram to decide on further management. (3) Essential hypertension: Currently normotensive. May continue on the current medications. (4) Dyslipidemia: May continue on the current medications. (5) Intermittent atrial fibrillation: Patient is off the Pradaxa and he is on Lovenox. Seems to be doing okay (6) COPD (chronic obstructive pulmonary disease): Clinically stable. Continue on the current management. Qualifiers: COPD type: unspecified COPD Qualified Code(s): J44.9 - Chronic obstructive pulmonary disease, unspecified Plan Plan for the cardiac catheterization tomorrow. Based on the results, further recommendations will be made. Will continue the current management for the time being. Coding Level of Care Code Acute Code for g Fwd Diagnoses New-onset angina I20.9 Atherosclerotic heart disease of [place] coronary artery with other forms of angina pectoris I25.118 Essential hypertension I10 Dyslipidemia E78.5 Intermittent atrial fibrillation I48.0 Chronic obstructive pulmonary disease, unspecified COPD type J44.9 COPD type: unspecified COPD
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
[2024-03-24] MEDS: sodium chloride 0.9% 1,000 ML 100 ML IV (15:42)
[2024-03-24 17:15] LABS: Glucose Point of Care 113 mg/dL (70-110)
== END 2024-03-24 19:00 | disposition home or self-care (01) ==
LOC: ER 12:09 → CSU 14:31
PROVIDERS: Internal Medicine Cardiovascular Disease; Admitting Provider Family Medicine; Emergency Provider Family Medicine; PCP Family Medicine; Visit Provider Family Medicine
DX: I25.118 Atherosclerotic heart disease of native coronary artery with other forms of angina pectoris (principal); I10 Essential (primary) hypertension; E78.5 Hyperlipidemia, unspecified; I48.0 Paroxysmal atrial fibrillation; J44.9 Chronic obstructive pulmonary disease, unspecified; Z95.1 Presence of aortocoronary bypass graft; E11.9 Type 2 diabetes mellitus without complications; Z79.82 Long term (current) use of aspirin; Z87.891 Personal history of nicotine dependence
CPT/HCPCS: 36415; 36416; 71045; 72125; 80048; 80053; 80061; 82962; 83036; 84443; 84484; 85025; 93005; 93306; 93459; 94664; 96372; 96374; 99152; 99153; 99285; C1760; C1769; C1887; C1894; G0269; G0378; J1644; J1650; J2250; J2470; J3010; J7030; Q0163; Q9967

== ENCOUNTER → 2024-04-17 08:21 | Outpatient (BNVA) | payer MEDICARE, MEDICAID, SELFPAY | PROVIDERS: PCP Family Medicine; Visit Provider Nurse Practitioner Family | DX: I25.10 Atherosclerotic heart disease of native coronary artery without angina pectoris (principal); I10 Essential (primary) hypertension; I48.0 Paroxysmal atrial fibrillation; Z95.1 Presence of aortocoronary bypass graft; R07.89 Other chest pain; Z87.891 Personal history of nicotine dependence; Z79.01 Long term (current) use of anticoagulants | CPT/HCPCS: 17000; 99204; 99214 ==

== ENCOUNTER → 2024-10-23 15:13 | Outpatient (BNVA) | payer MEDICARE, MEDICAID, SELFPAY | PROVIDERS: PCP Nurse Practitioner Family; Visit Provider Internal Medicine Cardiovascular Disease | DX: I10 Essential (primary) hypertension (principal); I50.9 Heart failure, unspecified | CPT/HCPCS: 36415; 80048; 83880 ==

== ENCOUNTER 2024-12-16 06:42 | Outpatient (CLI) | payer MEDICARE, MEDICAID, SELFPAY ==
--- NOTE | 2024-12-16 07:00 | USCV_ITS ---
Marshall Fountain Age: 64 Gender: M : 1960 Exam Date: 12/16/2024 07:04 Ordering Phys: Jefe Way MD ([email or web address]) Technologist: Exam Location: [facility] [place] Indication: cp sob afib BP: 137 / 75 HR: 46 Rhythm: Sinus Technical Quality: MEASUREMENTS (Male / Female) Normal Values 2D ECHO LV Diastolic Diameter PLAX 5.0 cm 4.2 - 5.9 / 3.9 - 5.3 cm IVS Diastolic Thickness 1.0 cm 0.6 - 1.0 / 0.6 - 0.9 cm IVS Systolic Thickness 1.7 cm LVPW Diastolic Thickness 1.1 cm 0.6 - 1.0 / 0.6 - 0.9 cm LVPW Systolic Thickness 1.6 cm LVOT Diameter 2.0 cm LV Ejection Fraction 2D Teich 66.9 % LV Ejection Fraction MOD 4C 67.5 % LV Ejection Fraction MOD 2C 64.8 % LV Ejection Fraction 2C AL 64.7 % LA Diameter 4.8 cm RA Systolic Volume 4C AL 62.7 ml RA Systolic Volume 4C MOD 61.0 ml Aorta at Sinotubular Diameter 2.8 cm IVC Diameter 2.2 cm M-MODE LA Ao Ratio MM 1.3 AV Cusp Separation MM 2.4 cm DOPPLER AV Peak Velocity 133.0 cm/s LVOT Peak Velocity 121.0 cm/s AV Area Cont Eq vti 4.3 cm squared AV Area Cont Eq pk 2.9 cm squared MV Peak Velocity 121.0 cm/s MV Area PHT 2.9 cm squared Mitral E to A Ratio 1.3 TV Peak Velocity 219.5 cm/s TR Peak Velocity 294.0 cm/s TR Peak Gradient 34.6 mmHg TV Peak E Velocity 158.0 cm/s FINDINGS Left Ventricle Normal left ventricular size, systolic function and wall thickness, with no regional wall motion abnormalities. Left ventricular ejection fraction is estimated at 60 %. Grade II/IV diastolic dysfunction, moderately elevated filling pressures. Right Ventricle The right ventricle is normal in size and function. Right Atrium The right atrium is normal in size. Left Atrium Moderately increased left atrial size. Mitral Valve Mildly thickened mitral valve. No mitral valve stenosis. Mild mitral valve regurgitation. Aortic Valve Mild aortic valve calcification. No aortic valve stenosis. Trace aortic valve regurgitation. Tricuspid Valve Structurally normal tricuspid valve without significant stenosis or regurgitation. Pulmonary artery systolic pressure is normal. Pulmonic Valve Mild pulmonary valve regurgitation. Pericardium Normal pericardium without effusion. Aorta Normal ascending aorta dimension. IVC The inferior vena cava appears normal. CONCLUSIONS Normal left ventricular size, systolic function and wall thickness, with no regional wall motion abnormalities. Left ventricular ejection fraction is estimated at 60 %. Grade II/IV diastolic dysfunction, moderately elevated filling pressures. Moderately increased left atrial size. Mildly thickened mitral valve. No mitral valve stenosis. Mild mitral valve regurgitation. Mild aortic valve calcification. No aortic valve stenosis. Trace aortic valve regurgitatio There is no pericardial effusion. Right atrial pressure is around [address] MD (Electronically Signed) Final Date: 31 December 2024 21:56 S
== END 2024-12-16 06:43 | disposition home or self-care (01) ==
LOC: RAD 06:43
PROVIDERS: PCP Nurse Practitioner Family; Visit Provider Internal Medicine Cardiovascular Disease
DX: R06.02 Shortness of breath (principal); R93.1 Abnormal findings on diagnostic imaging of heart and coronary circulation; I51.7 Cardiomegaly; I34.0 Nonrheumatic mitral (valve) insufficiency; I35.8 Other nonrheumatic aortic valve disorders
CPT/HCPCS: 93306